=== PATIENT | male | born 1945 | race Caucasian/White ===

== ENCOUNTER 2020-11-16 16:37 | Emergency (ER) | payer MEDICARE ==
[~2020-11-16] VITALS: Ht 175.3 cm; Wt 81.6 kg
[2020-11-16 16:45] VITALS: BP 155/123
--- NOTE | 2020-11-16 16:45 | NUR ---
BIBA TO BED 8.
[2020-11-16] MEDS ORDERED: NACL 0.9% 1,000 ML IV ONE (17:00)
--- NOTE | 2020-11-16 17:15 | NUR ---
Labs drawn at bedside, gtube culture obtained, handed to petroleum refinery laborer
[2020-11-16 17:32] LABS: BASOPHILS # (AUTO) 0.1 K/uL (0.00-0.22); BASOPHILS % (AUTO) 0.7 % (0.0-2.0); EOSINOPHILS # (AUTO) 1.2 K/uL (0-0.4); EOSINOPHILS % (AUTO) 10.5 % (0.0-4.0); HEMATOCRIT 28.7 % (36-52); HEMOGLOBIN 9.2 g/dL (12.0-18.0); LYMPHOCYTES # (AUTO) 1.8 K/uL (2.0-11.5); LYMPHOCYTES % (AUTO) 16.6 % (20.5-51.1); MEAN CORPUSCULAR HEMOGLOBIN 26 pg (27-31); MEAN CORPUSCULAR HGB CONC 32 g/dL (33-37); MEAN CORPUSCULAR VOLUME 82.7 fL (80-94); MONOCYTES # (AUTO) 0.9 K/uL (0.8-1.0); MONOCYTES % (AUTO) 8.1 % (1.7-9.3); NEUTROPHILS # (AUTO) 7.1 K/uL (1.8-7.7); NEUTROPHILS % (AUTO) 64.1 % (42.2-75.2); PLATELET COUNT (AUTO) 481 K/uL (140-450); RED BLOOD CELL COUNT(AUTO) 3.48 MIL/uL (4.20-6.10); RED CELL DISTRIBUTION WIDTH 19.5 % (11.6-13.7); WHITE BLOOD COUNT (AUTO) 11.1 K/uL (4.8-10.8)
[2020-11-16 17:52] LABS: PROTHROMBIN TIME 9.8 secs (10.8-13.4)
[2020-11-16 17:53] LABS: ALBUMIN 2.6 g/dL (3.4-5.0); ANION GAP 13.3 (8-16); ASPARTATE AMINOTRANSFERASE 17 U/L (15-37); CHLORIDE 102 mmol/L (98-107); CREATININE 0.8 mg/dL (0.6-1.3); GLUCOSE 137 mg/dL (74-106); LIPASE 137 U/L (73-393); POTASSIUM 4.3 mmol/L (3.5-5.1); SODIUM SERUM 141 mmol/L (136-145); TOTAL BILIRUBIN 0.2 mg/dL (0.0-1.0); UREA NITROGEN, BLOOD 26 mg/dL (7-18)
--- NOTE | 2020-11-16 17:58 | NUR ---
74/M lauro from [facility]. Per staff patient was receiving his regular feeding this morning through his G-tube when they noticed the gtube site was red, swollen and hardened. Staff states they stopped the feeding and called the patients primary doctor who asked to have him sent to the ED to be evaluated. G-tube site appears red and swollen, discharge noted at site. Patient is nonambulatory, nonverbal at baseline. Patient placed in gown on bedside monitoring and evaluation advisor, vitals upon arrival 99.9 temp, blood pressure 155/123, heart rate 116, respiratory rate 24. Patient on t-bar, trach to vent, 100% pulse oximeter.
--- NOTE | 2020-11-16 17:58 | NUR ---
Xray at bedside
[2020-11-16 18:00] LABS: APPEARANCE,URINE CLEAR (CLEAR); BILIRUBIN,URINE NEGATIVE (NEGATIVE); BLOOD, URINE TRACE-I (NEGATIVE); COLOR,URINE YELLOW (YELLOW); LEUKOCYTE ESTERASE ,URINE 1+ (NEGATIVE); NITRITE, URINE NEGATIVE (NEGATIVE); UGLUCOSE NEGATIVE (NEGATIVE)
[2020-11-16] MEDS ORDERED: PIPERACILLIN/TAZOBACTAM 3.375 GM in DEXTROSE 5% 50 ML IV ONE (18:30)
--- NOTE | 2020-11-16 18:37 | NUR ---
Taken to CT via redd
[2020-11-16] MEDS ORDERED: PIPERACILLIN/TAZOBACTAM 3.375 GM VIAL IV ONE (18:39)
--- NOTE | 2020-11-16 18:56 | NUR ---
Liza swab collected and walked to lab
--- NOTE | 2020-11-16 19:09 | NUR ---
Pt report given to Teresa. Transfer of care at this time.
--- NOTE | 2020-11-16 19:10 | NUR ---
RECEIVED REPORT FROM DENISE DANIELLE FOR CONTINUITY OF CARE
[2020-11-16] MEDS ORDERED: LISI-487 PO (19:27)
[2020-11-16] MEDS ORDERED: FERR325E14 PO (19:27)
[2020-11-16] MEDS ORDERED: OMEP20EC11 PO (19:27)
[2020-11-16] MEDS ORDERED: INSU100S10 SC (19:27)
[2020-11-16] MEDS ORDERED: MVI,5VIA5 IV (19:27)
[2020-11-16] MEDS ORDERED: DOCU-299 PO (19:27)
[2020-11-16] MEDS ORDERED: METO50TA20 PO (19:27)
--- NOTE | 2020-11-16 20:12 | NUR ---
ERMD AT BEDSIDE
--- NOTE | 2020-11-16 20:24 | NUR ---
PT PLACED ON CA 30% 6L CURRENT SPO2 100% HR 103 WILL CONTINUE TO MONITOR
--- NOTE | 2020-11-16 22:00 | NUR ---
CALLED SON: WESLY MELARA ( EMERGENCY CONTACT OF PT); OBTAINED INFORMED CONSENT REGARDING TRANSFER TO ANOTHER FACILITY; PT'S SON ACKNOWLEGED AND SIGNED INFORMED CONSENT CONFIRMING NURSE/S: ALEX WALKER, RANDALL WALKER
--- NOTE | 2020-11-16 23:23 | NUR ---
PT Sx THK CRMY SECR WERE ASPIRATED. WILL CONTINUE TO MONITOR
--- NOTE | 2020-11-17 00:36 | NUR ---
[facility], TALKED TO FABIANA WALKER [phone]
--- NOTE | 2020-11-17 01:40 | NUR ---
PT RESTING ON CA W/ NO DISTRESS NOTED. WATER 1/2 FULL WILL CONTINUE TO MONITOR
--- NOTE | 2020-11-17 04:00 | NUR ---
CALLED [facility] ER REGARDING DELAY IN TRANSPORT
--- NOTE | 2020-11-17 04:23 | NUR ---
Patient appears to be resting comfortably in bed. Vital Signs within normal limits. Respirations even and unlabored.
--- NOTE | 2020-11-17 04:25 | NUR ---
RT ON BEDSIDE FOR TRACH CARE
--- NOTE | 2020-11-17 04:59 | NUR ---
TRACH CARE PERFORMED AND PT TOLERATED WELL. PT REMAINS ON CA 30% 6L
--- NOTE | 2020-11-17 05:03 | NUR ---
DRAINED GUALLPA CATHETER, OUTPUT WAS 900ML; URINE IS PINKISH TO LIGHT RED IN COLOR
[2020-11-17 05:42] VITALS: BP 127/87
--- NOTE | 2020-11-17 05:45 | NUR ---
Patient to be transferred to [facility]. Is being transferred due to INSURANCE REQUEST. Receiving facility has accepting physician and available space. ER physician has signed transfer form. Patient or responsible constitution party has agreed to transfer and signed form. Patient belongings inventoried and will be sent with patient. Copy of nursing notes, lab reports, EKG, Physicians Orders and X-rays to be sent with patient. Report called to FABIANA WALKER at receiving facility. [facility] ambulance service has been called for transfer. ETA is 1 HOUR.
--- NOTE | 2020-11-17 19:20 | NUR ---
LATE ENTRY- ZOSYN IVPB DISCONTINUED AT 1935
== END 2020-11-17 05:45 | disposition short-term general hospital (02) ==
LOC: MED 16:37
DX: L03.311 Cellulitis of abdominal wall (principal); Z20.822 Contact with and (suspected) exposure to COVID-19; K94.23 Gastrostomy malfunction; I12.9 Hypertensive chronic kidney disease with stage 1 through stage 4 chronic kidney disease, or unspecified chronic kidney disease; N18.9 Chronic kidney disease, unspecified; D64.9 Anemia, unspecified; Z86.73 Personal history of transient ischemic attack (TIA), and cerebral infarction without residual deficits; Z98.890 Other specified postprocedural states; Z79.899 Other long term (current) drug therapy
CPT/HCPCS: 36415; 51702; 71045; 74177; 80053; 81001; 83605; 83690; 85025; 85610; 85730; 87040; 87070; 87086; 87426; 93005; 96361; 96365; 99285; J2543; J7030; Q9967

== ENCOUNTER 2020-11-30 22:23 | Inpatient (IN) | payer MEDICARE, MEDICAID ==
[~2020-11-30] VITALS: Ht 172.7 cm; Wt 79.8 kg
[2020-11-30 22:23] VITALS: BP 143/90
[~2020-11-30 22:23] MED LIST: DOCU-299 GT; FERR325E14 GT; INSU100S10 SC; LISI-487 GT; METO50TA20 GT; MVI,5VIA5 GT; OMEP20EC11 GT
--- NOTE | 2020-11-30 22:24 | NUR ---
EARLENE GRIMES TAKEN TO BED #8
[2020-11-30] MEDS ORDERED: VANCOMYCIN 1,000 MG in DEXTROSE 5% 250 ML IV ONE (22:25)
[2020-11-30] MEDS ORDERED: CEFEPIME 2,000 MG in DEXTROSE 5% 100 ML IV ONE (22:25)
[2020-11-30] MEDS ORDERED: NACL 0.9% 1,000 ML IV ONE ×2 (22:25)
--- NOTE | 2020-11-30 22:25 | NUR ---
PT BIBA FROM [facility]; PER [facility] DX OF UTI AND PNA YESTERDAY; APPROX 30 MIN. AGO PT HAD ALOC, NOTED WITH TACHYCARDIA 170-180'S. PT NOTED WITH TRACH TO AIR. ARRIVED ON 12L WITH 02 98%. PT IS NONVERBAL, BASELINE IS ABLE TO TRACK WITH EYES. PT CURRENTLY RESPONSIVE TO PAIN ONLY BY WITHDRAWING. G TUBE NOTED WITH DRAINAGE TO SITE. PER [facility], GTUBE WAS DISPLACED AND REINSERTED PRIOR TO ARRIVAL. PLACEMENT CONFIRMED WITH 10CC AIR, AUSCULTATION POSITIVE. PER [facility] ACCUCHECK ON SCENE 175. NKA. PT IS WARM TO TOUCH WITH MOIST SKIN. PT CONNECTED TO MONITOR. RT AT BEDSIDE.
--- NOTE | 2020-11-30 22:26 | NUR ---
EKG PERFORMED AT BEDSIDE. EKG READS SUPRAVENTRICULAR TACHYCARDIA @ 169
[2020-11-30] MEDS ORDERED: ACETAMINOPHEN 650 MG/20.3 ML UDC GT ONE (22:30)
[2020-11-30] MEDS ORDERED: ADENOSINE 6 MG/2 ML VIAL IVP ONE (22:30)
--- NOTE | 2020-11-30 22:35 | NUR ---
D/C'D EXISTING INDWELLING GUALLPA CATH; NEW 16F GUALLPA PLACED, IMMEDIATE RETURN OF 10CC BLOODY, RED URINE. STERILE TECHNIQUE MAINTAINED.
--- NOTE | 2020-11-30 22:39 | NUR ---
Dr. Spence at bedside notified of SVT. Adenosine 6mg prepared with stopcock to IV. Dr. Spence, Marina RN, Black RN, Norman VENDOR QUALITY SUPERVISOR, Flavio VENDOR QUALITY SUPERVISOR, Leo EMT at bedside. Stanley cerda.
--- NOTE | 2020-11-30 22:40 | NUR ---
Adenosine 6mg pushed. pt did not conver into NSR. now sinus tach, per Dr. Spence declared as sinus tach and no more adenosine administration.
--- NOTE | 2020-11-30 22:40 | NUR ---
REPEAT EKG PERFORMED AT BEDSIDE. EKG READS SUPRAVENTRICULAR TACHYCARDIA @ 154
[2020-11-30 22:48] LABS: BASOPHILS % (AUTO) 0.1 % (0.0-2.0); EOSINOPHILS % (AUTO) 3.9 % (0.0-4.0); HEMATOCRIT 30.1 % (36-52); HEMOGLOBIN 9.5 g/dL (12.0-18.0); LYMPHOCYTES # (AUTO) 2.9 K/uL (2.0-11.5); LYMPHOCYTES % (AUTO) 11.7 % (20.5-51.1); MEAN CORPUSCULAR HEMOGLOBIN 27 pg (27-31); MEAN CORPUSCULAR HGB CONC 32 g/dL (33-37); MONOCYTES # (AUTO) 0.9 K/uL (0.8-1.0); MONOCYTES % (AUTO) 3.6 % (1.7-9.3); NEUTROPHILS % (AUTO) 80.7 % (42.2-75.2); PLATELET COUNT (AUTO) 432 K/uL (140-450); RED BLOOD CELL COUNT(AUTO) 3.58 MIL/uL (4.20-6.10); RED CELL DISTRIBUTION WIDTH 19.5 % (11.6-13.7); WHITE BLOOD COUNT (AUTO) 24.8 K/uL (4.8-10.8)
[2020-11-30] MEDS ORDERED: CEFEPIME 2,000 MG VIAL IV ONE (22:54)
--- NOTE | 2020-11-30 23:14 | NUR ---
RT AT BEDSIDE.
[2020-11-30 23:17] LABS: ALBUMIN 2.8 g/dL (3.4-5.0); ANION GAP 21.4 (8-16); ASPARTATE AMINOTRANSFERASE 21 U/L (15-37); CARBON DIOXIDE 24.4 mmol/L (21-32); CHLORIDE 99 mmol/L (98-107); CREATININE 1.3 mg/dL (0.6-1.3); GLUCOSE 172 mg/dL (74-106); POTASSIUM 4.8 mmol/L (3.5-5.1); SODIUM SERUM 140 mmol/L (136-145); TOTAL BILIRUBIN 0.3 mg/dL (0.0-1.0); UREA NITROGEN, BLOOD 38 mg/dL (7-18)
[2020-11-30 23:22] LABS: APPEARANCE,URINE CLOUDY (CLEAR); BILIRUBIN,URINE NEGATIVE (NEGATIVE); BLOOD, URINE 3+ (NEGATIVE); COLOR,URINE RED (YELLOW); LEUKOCYTE ESTERASE ,URINE 2+ (NEGATIVE); NITRITE, URINE NEGATIVE (NEGATIVE); PH,URINE 5.5 (5.0-9.0); UGLUCOSE NEGATIVE (NEGATIVE)
[2020-11-30 23:33] LABS: BARBITURATE, URINE NEGATIVE ng/ml (NEG <=200); BENZODIAZEPINE, URINE NEGATIVE ng/mL (NEG <=200); CANNABINOID, URINE NEGATIVE ng/mL (NEG <=50); COCAINE, URINE NEGATIVE ng/mL (NEG <=300); OPIATE, URINE POSITIVE ng/mL (NEG <=2000); PHENCYCLIDINE SCREEN,URINE NEGATIVE ng/mL (NEG <=25)
[2020-11-30 23:35] LABS: RBC,URINE TOO NUMEROUS TO COUN /HPF (0-5)
--- NOTE | 2020-11-30 23:40 | NUR ---
PT TAKEN TO CT SCAN
--- NOTE | 2020-11-30 23:53 | NUR ---
PT BACK FROM CT SCAN
[2020-12-01] VITALS (19 sets, daily range): BP systolic 79–134; BP diastolic 53–79
--- NOTE | 2020-12-01 00:03 | NUR ---
[address] KENNEDY ABG RESULTS, LOWERED VENTILATOR RATE TO 20 BPM, AND FIO2 TO 50%, HELPED TRANSPORT PT TO CT, WITH RN, RETURNED TO BED 8 IN ER, PT IS TOLERATING VENT SETTINGS WELL, WILL CONTINUE TO MONITOR
[2020-12-01] MEDS ORDERED: VANCOMYCIN 1,000 MG VIAL ONE (00:13)
--- NOTE | 2020-12-01 00:30 | NUR ---
45 CC DARK, YELLOW URINE OUTPUT NOTED IN GUALLPA BAG.
[2020-12-01] MEDS ORDERED: LACT100C5 GT (01:45)
[2020-12-01] MEDS ORDERED: ZINC50TA76 GT (01:45)
[2020-12-01] MEDS ORDERED: ASCO-516 GT (01:45)
[2020-12-01] MEDS ORDERED: MEDI237S4 GT (01:45)
--- NOTE | 2020-12-01 01:57 | NUR ---
Patient will be admitted to care of MD THEODROE. Admited to ICU. Will go to room ICU8. Belongings list completed. Report to DENISE KIMBALL.
--- NOTE | 2020-12-01 02:10 | NUR ---
ADDITONAL 100 CC DARK, YELLOW URINE NOTED IN GUALLPA BAG. PT HAD BM, CLEANED AND CHANGED SHEETS, REPOSITIONED FOR COMFORT.
--- NOTE | 2020-12-01 02:12 | NUR ---
PT TAKEN TO ICU BED 8 VIA GURPRINCESS.
--- NOTE | 2020-12-01 02:20 | NUR ---
RECIEVED PT ADMISSION FROM ER NURSE, A&0X0, SR ON MONITOR, PERIPHERAL PULSES PALPABLE TO TOUCH, TRACH TO VENT ACVC FIO2 35% TV 500 RATE 20 PEEP 5, GTUBE IN PLACE AND CLAMPED, FC IN PLACE DRAINING VIA GRAVITY W/ DARK EJ URINE, AFEBRILE, SKIN WARM DRY AND NON INTACT, PRESSURE WOUND TO R ABD AND SACRAL COCCYX, R SIDED WEAKNESS, RFA 20 G PIV INFUSING NS TKO, NATHAN 18 G PIV SALINE LOCKED, PT SHOWING NO SIGNS OF ACUTE DISTRESS, SAFETY MEASURES IN PLACE, WILL CONTINUE WITH CURRENT POC
--- NOTE | 2020-12-01 02:20 | NUR ---
HELPED ER STAFF TRANSFER PT FROM ER BED 8 TO ICU BED 8, PT REMAINS STABLE ON MECHANICAL VENTILATION, WILL CONTINUE TO MONITOR
[2020-12-01] MEDS ORDERED: PIPERACILLIN/TAZOBACTAM 3.375 GM VIAL IV ONE (03:22)
--- NOTE | 2020-12-01 03:35 | NUR ---
REPOSITIONED PT, MORNING CARE GIVEN, CHANGED LINEN, VAP ORAL CARE AND SUCTIONING, PT SHOWING NO SIGNS OF ACUTE DISTRESS
[2020-12-01] MEDS: PIPERACILLIN/TAZOBACTAM 3.375 GM in DEXTROSE 5% 50 ML IV SCH ×3 (04:03→22:05)
--- NOTE | 2020-12-01 04:22 | NUR ---
ADMINISTERED 0500H MEDICATION PER MD ORDERS
[2020-12-01 06:00] LABS: ALBUMIN 2.4 g/dL (3.4-5.0); ANION GAP 10.6 (8-16); ASPARTATE AMINOTRANSFERASE 20 U/L (15-37); CARBON DIOXIDE 28.4 mmol/L (21-32); CHLORIDE 104 mmol/L (98-107); CREATININE 1.1 mg/dL (0.6-1.3); GLUCOSE 165 mg/dL (74-106); PHOSPHORUS 3.4 mg/dL (2.5-4.9); SODIUM SERUM 139 mmol/L (136-145); TOTAL BILIRUBIN 0.2 mg/dL (0.0-1.0); UREA NITROGEN, BLOOD 39 mg/dL (7-18)
[2020-12-01 06:04] LABS: BASOPHILS % (AUTO) 0.1 % (0.0-2.0); EOSINOPHILS % (AUTO) 0.2 % (0.0-4.0); HEMATOCRIT 25.7 % (36-52); LYMPHOCYTES # (AUTO) 1.4 K/uL (2.0-11.5); LYMPHOCYTES % (AUTO) 6.9 % (20.5-51.1); MEAN CORPUSCULAR HEMOGLOBIN 27 pg (27-31); MEAN CORPUSCULAR HGB CONC 32 g/dL (33-37); MEAN CORPUSCULAR VOLUME 85.3 fL (80-94); MONOCYTES # (AUTO) 1.8 K/uL (0.8-1.0); MONOCYTES % (AUTO) 8.8 % (1.7-9.3); NEUTROPHILS # (AUTO) 16.7 K/uL (1.8-7.7); PLATELET COUNT (AUTO) 332 K/uL (140-450); RED BLOOD CELL COUNT(AUTO) 3.01 MIL/uL (4.20-6.10); RED CELL DISTRIBUTION WIDTH 19.5 % (11.6-13.7); WHITE BLOOD COUNT (AUTO) 19.9 K/uL (4.8-10.8)
[2020-12-01 06:31] LABS: HEMOGLOBIN 8.1 g/dL (12.0-18.0)
--- NOTE | 2020-12-01 06:41 | NUR ---
CONTACTED [facility] IN REGARDS TO CRITICAL LAB REPORTING, NO ANSWER, LEFT MESSAGE AND AWAITING CALL BACK
--- NOTE | 2020-12-01 06:53 | NUR ---
CONTACTED [facility] AGAIN IN REGARDS TO CRITICAL LAB REPORTING, NO ANSWER, LEFT MESSAGE, STILL AWAITING CALL BACK
--- NOTE | 2020-12-01 07:15 | NUR ---
DR JAIMES AT BEDSIDE EXAMINING PT
--- NOTE | 2020-12-01 07:20 | NUR ---
RCV'D PT ON MECHANICAL VENTILATOR WITH PORTEX [address] TR[address] TRACH IS IN PLACE AND SECURED WITH TRACH TIE. VENT CONNECTED TO RED OUTLET, ALARMS AUDIBLA, AMBU BAG AT BEDSIDE. NO SOB OR DISTRESS NOTED. CLEAR BREATH SOUNDS. WILL CONTINUE TO MONITOR PATIENT.
--- NOTE | 2020-12-01 07:20 | NUR ---
REPORT RECEIVED FROM PM SHIFT RN FOR CONTINUITY OF CARE. PT A&OX1. OPENS EYES, TRACKING NOTED. TRACH TO VENT, ON AC/VC MODE FIO2 35% TV 500, RATE 20, PEEP 5. O2 SATURATION 100%. LUNG SOUNDS CLEAR. SINUS RHYTHM ON MONITOR. IV SITE LT UPPER ARM 18G, INTACT, PATENT, GOOD BLOOD RETURN, SALINE LOCKED. RT FOREARM 20G, INTACT, PATENT, GOOD BLOOD RETURN, INFUSING NS 100ML/HR. GTUBE IN PLACE, CLAMPED. GUALLPA CATHETER IN PLACE. SKIN WARM AND DRY, NON INTACT, SEE WOUND ASSESSMENT. HOB 30 DEGREES. BED LOCKED IN LOWEST POSITION. SAFETY PRECAUTIONS IN PLACE. WILL CONTINUE TO MONITOR.
--- NOTE | 2020-12-01 07:20 | NUR ---
ENDORSED TO DAY SHIFT RN FOR CONTINUITY OF CARE
[2020-12-01] MEDS ORDERED: INSULIN LISPRO SLIDING SCALE 100 UNITS/ML VIAL SUBQ PRN (07:25)
[2020-12-01] MEDS ORDERED: ONDANSETRON 4 MG/2 ML VIAL IVP PRN (07:25)
[2020-12-01] MEDS ORDERED: ACETAMINOPHEN 325 MG TAB PO PRN (07:25)
[2020-12-01] MEDS ORDERED: HYDROcodone/APAP 5/325 MG 1 TAB TAB PO PRN (07:25)
[2020-12-01] MEDS ORDERED: DEXTROSE 50% 50 ML SYR IVP PRN (07:25)
[2020-12-01] MEDS ORDERED: LORazepam 2 MG/ML VIAL IM/IVP PRN (07:25)
[2020-12-01] MEDS ORDERED: MORPHINE SULFATE 2 MG/ML SYR IVP PRN (07:25)
[2020-12-01] MEDS ORDERED: ZOLPIDEM 5 MG TAB PO PRN (07:25)
[2020-12-01] MEDS ORDERED: DOCUSATE SODIUM 100 MG GELCAP PO PRN (07:25)
[2020-12-01] MEDS: BLOOD GLUCOSE MONITORING 1 DEV DEV FS SCH ×4 (07:36→21:58)
--- NOTE | 2020-12-01 08:00 | NUR ---
ORAL CARE PROVIDED. PT REPOSITIONED. WILL CONTINUE TO MONITOR.
--- NOTE | 2020-12-01 08:46 | NUR ---
PATIENT HAS BEEN SCREENED AND CATEGORIZED HIGH NUTRITION RISK. PATIENT WILL BE SEEN WITHIN 1-2 DAYS OF ADMISSION. 12/01/20-12/02/[address]
[2020-12-01] MEDS ORDERED: THERAHONEY GEL 42.5 GM TP SCH (09:00)
--- NOTE | 2020-12-01 10:26 | NUR ---
DC PLANNING: FAXED THE ORDER FOR STABLE FOR TRANSFER TO [facility] AT [phone] CM TO FOLLOW Addendum: 12/01/20 at 1125 by Ebonie Wills RN DC PLANNING; CALLED [facility] SPOKE WITH FANTA CASE IDENTIFICATION OFFICER UPDATED PT'S CLINICAL AND PROVIDE DR GARCIA'S NUMBER FOR [facility]. PER FANTA SHE RECEIVED ALL THE CLINICALS AND BLANCA IS THE CM FOR THIS PATIENT AND WILL CALL BACK IF SHE HAS ANY PATIENT. CALLED PT'S SON WESLY [phone] NOTIFIED HIM THAT PT MIGHT BE TRANSFERRED TO [facility] PER WESLY DAWKINS [facility] ,NOTIFIED OCTOBER AT [facility]. CM TO FOLLOW
--- NOTE | 2020-12-01 10:45 | NUR ---
DR NEWTON AT BEDSIDE EXAMINING PT
[2020-12-01 11:03] LABS: PROTHROMBIN TIME 10.2 secs (10.8-13.4)
[2020-12-01 11:11] LABS: CHOL/HDL RATIO 3.5 (1-4.5); FREE T4 (FREE THYROXINE) 1.1 ng/dL (0.76-1.46); PHOSPHORUS 3.4 mg/dL (2.5-4.9); THYROID STIMULATING HORMONE 3.61 uIU/mL (0.34-3.74)
[2020-12-01] MEDS ORDERED: CRUSHER, PILL MC ONE (11:14)
--- NOTE | 2020-12-01 11:49 | NUR ---
PT HAD 1 BOWEL MOVEMENT, CLEANED, REPOSITIONED. SAFETY PRECAUTIONS IN PLACE. WILL CONTINUE TO MONITOR.
--- NOTE | 2020-12-01 13:10 | NUR ---
REPORT GIVEN TO BLANCA WALKERSMASH FIXER FOR [facility] TRANSFER. STATED WILL WAIT FOR REPEAT TROPONIN BEFORE ACCEPTANCE. [phone]
--- NOTE | 2020-12-01 13:11 | NUR ---
WOUND CARE EVALUATION NOTE: SKIN ASSESSMENT DONE WITH PRIMARY RN TO THIS THIS 75-YEAR-OLD MALE ADMITTED FROM A SNF TO [facility] FOR PNEUMONIA AND UTI. PMH OF CHRONIC TRACH TO VENT, HTN, DM. PT. SKIN IS WARM AND POC DISCUSSED WITH PRIMARY RN INTEGUMENTARY -TRACH AND GT SITES MASSIEL STOMA SKIN DRY AND CLEAN -LATERAL SIDE AND ABDOMEN WALL 2 OPEN HEALING BLISTERS, SUPERFICIAL DEPTH, WOUND BEDS ARE MOIST AND CLEAN. -SACRAL STAGE 4 PRESSURE INJURY,3X3X1 CM, UNDERMINING BETWEEN 9 OCLOCK DIRECTION WITH 0.5CM, TUNNEL WOUND TO 6 OCLOCK DIRECTION WOUND BED 100% GRANULATING TISSUE, MOIST, NO ODOR, MASSIEL-WOUND SKIN PALE HEALED SCAR RECOMMENDATIONS -CLEANSE ABDOMEN OPEN BLISTERS WITH WOUND CARE SOLUTION, PAT DRY, APPLY FOAM DRESSING AND CHANGE 7 DAYS AND PRN IF SOILING -CLEANSE SACRALCOCCYX WOUND WITH NS. PAT DRY, PACK WITH THERAHONEY GEL AND COVER WITH ISLAND DRESSING QD AND PRN IF SOILING -APPLY SKIN PREP.TO BILATERAL HEEL BID AND OUTSOLE SCHEDULER -TURN AND REPOSITION PATIENT Q 2H -HEEL PROTECTORS TO BILATERAL HEELS AT ALL TIME -TURN AND REPOSITION PATIENT Q 2H -ASSESS AND MONITOR SKIN CONDITION DURING POSITION CHANGE -OFFLOAD BILATERAL HEELS BY PLACING PILLOWS UNDER CALVES AT ALL TIMES, UNLESS OTHERWISE CONTRAINDICATED -PRESSURE REDISTRIBUTION SURFACE THERAPY -KEEP SKIN CLEAN AND DRY AT ALL TIMES. PLEASE CONTACT WOUND CARE NURSE FOR ANY QUESTION AND CHANGE OF WOUND CONDITION.
--- NOTE | 2020-12-01 13:20 | NUR ---
PATIENT AWAKE AND AGITATED TRIED TO PULL OUT HIS TRACK , ATIVAN IVP GIVEN ORDERED.
--- NOTE | 2020-12-01 13:34 | NUR ---
PATIENT FALL TO SLEEP VITAL SIGN WITH IN NORMAL LIMIT.
--- NOTE | 2020-12-01 15:23 | NUR ---
12/01/20 RD INITIAL ASSESSMENT COMPLETED PLEASE REFER TO NUTRITION ASSESSMENT UNDER CARE ACTIVITY FOR ESTIMATED NUTRITIONAL NEEDS. 1. RECOMMEND VITAL AF 1.2 @ 70 ML/HR. START AT 20 ML/HR AND INCREASE BY 20 ML/HR Q4H -PROVIDES 2016 KCAL AND 126 GM OF PROTEIN 2. RECOMMEND FREE WATER FLUSH OF 110 ML Q4H 3. RECOMMEND ROSE BID 4. RD TO FOLLOW-UP 2-3 DAYS, HIGH RISK TY BENNETT RD
--- NOTE | 2020-12-01 16:00 | NUR ---
RECEIVED CALL FROM BEE CHANDRA FIELD REPORTER. [phone]. UPDATED ON PT STATUS. PT TO BE TRANSFERRED [facility]. NO ETA GIVEN FOR PICKUP.
--- NOTE | 2020-12-01 17:15 | NUR ---
PT TRANSFERRED TO TELE 108 B VIA [facility]. ACCOMPANIED BY ROLANDO LAMBERTCATAPULT AND ARRESTING GEAR OFFICER, LISA WALKER AND JENNIFER VIVEROS
--- NOTE | 2020-12-01 17:26 | NUR ---
PT TRANSFERRED FROM ICU TO TELE WITH NO INCIDENT. VENT CONNECTED TO RED OUTLET. ALARMS AUDIBLE. AMBU BAG AT BEDSIDE. NO SOB OR DISTRESS NOTED. WILL CONTINUE TO MONITOR.
[2020-12-01] MEDS ORDERED: METO25TA PO (17:54)
[2020-12-01] MEDS ORDERED: ZOS3.375PM IV (17:54)
--- NOTE | 2020-12-01 19:07 | NUR ---
RECEIVED CALL FROM OCTOBER WATER PROOFER. PT WILL BE GOING TO [facility] [id number] Shira SU. REPORT TO BE GIVEN TO [phone]
--- NOTE | 2020-12-01 19:08 | NUR ---
OCTOBER WOOD BOATBUILDER APPRENTICE. [phone]. ETA PICKUP TIME IS 2029. CALL BACK FELLER BUNCHER OPERATOR TO UPDATE LATEST VITALS.
--- NOTE | 2020-12-01 19:24 | NUR ---
REPORT GIVEN TO JAMEE WALKER FOR CONTINUITY OF CARE
--- NOTE | 2020-12-01 20:00 | NUR ---
PT IN BED AOX1 , HE IS RESPONSIVE TO LIGHT PAIN HE IS A TRACH TO VENT FIO2 24% TV 500 PEEP 5. PT HAS A G TUBE INTACT NO FEEDING PT IS NPO. HE ALSO HAS A GUALLPA CATHETER IN PLACE AND DRAINING YELLOW URINE. HE HAS 2 IV SITES R F/A AND LEFT UPPER ARM 18G WHICH IS SALINE LOCKED R F/A 20 GUAGE IS RUNNING NORMAL SALINE AT 100 MLS/HR. ALL ORDERED PRECAUTIONS IN PLACE.
[2020-12-01] MEDS ORDERED: METOPROLOL 25 MG TAB PO SCH (21:00)
--- NOTE | 2020-12-01 21:00 | NUR ---
PT GIVEN ROUTINE MED VIA GT, ALSO ZOSYN HUNG AND RUNNING ORDERED. PT UNABLE TO COMPREHEND TEACHING REGARDING MEDICATION. ALL ORDERED PRECAUTIONS IN PLACE.
--- NOTE | 2020-12-01 22:02 | NUR ---
CALLED BEE DAWKINS TO FOLLOW UP ABOUT THE PT TRANSPORTATION ( [facility]) , ETA IS SUPPOSED TO BE 2030 AND NO ONE AUTO BUMPER MECHANIC THE PATIENT YET. ACCORDING TO MY REPORT FROM DAY SYSTEM ADMINISTRATION MANAGERDENISE DAWKINS WILL BE PROVIDING THE TRANSPORTATION FOR THE PATIENT. CALLED AND SPOKE TO THE RECEIVING DENISE MATOS AND MADE AWARE THAT THE PATIENT HASN'T BEEN AUTO BUMPER MECHANIC YET. DENISE MATOS STATED THAT SHE IS ALSO NOT AWARE THAT THEY ARE PROVIDING THE TRANSPORTATION AND STATED THAT SHE WILL CALL HER BED COORDINATOR.
--- NOTE | 2020-12-01 23:00 | NUR ---
[facility] TRANSPORT HERE. REPORT GIVEN TO SHAWNA MILLS AT [facility]. PT LEFT IN STABLE CONDITION.
== END 2020-12-01 23:25 | disposition short-term general hospital (02) | DRG 871 ==
LOC: MED 22:23 → MIC 12-01 01:05 → MTU 12-01 17:30
PROVIDERS: ADMIT Family Medicine; ATTEND Family Medicine
PROC: 5A1935Z Respiratory Ventilation, Less than 24 Consecutive Hours (ICD-10-PCS; principal; 2020-12-01)
DX: A41.9 Sepsis, unspecified organism (principal); G93.41 Metabolic encephalopathy; I21.4 Non-ST elevation (NSTEMI) myocardial infarction; E43 Unspecified severe protein-calorie malnutrition; J18.9 Pneumonia, unspecified organism; N39.0 Urinary tract infection, site not specified; I47.1 Supraventricular tachycardia; R65.20 Severe sepsis without septic shock; Z20.822 Contact with and (suspected) exposure to COVID-19; I12.9 Hypertensive chronic kidney disease with stage 1 through stage 4 chronic kidney disease, or unspecified chronic kidney disease; N18.9 Chronic kidney disease, unspecified; E11.22 Type 2 diabetes mellitus with diabetic chronic kidney disease; R13.12 Dysphagia, oropharyngeal phase; D63.8 Anemia in other chronic diseases classified elsewhere; Z93.1 Gastrostomy status; Z68.26 Body mass index [BMI] 26.0-26.9, adult; Z79.4 Long term (current) use of insulin; Z79.899 Other long term (current) drug therapy; Z86.73 Personal history of transient ischemic attack (TIA), and cerebral infarction without residual deficits; Z93.0 Tracheostomy status
CPT/HCPCS: 36415; 70450; 71045; 80053; 80305; 81001; 82150; 83036; 83605; 83690; 83735; 84100; 84439; 84443; 84484; 85025; 85610; 85730; 87040; 87070; 87081; 87086; 87205; 87804; 93005; 94003; 96365; 96366; 96367; 96375; 99285; J0153; J0692; J1815; J2060; J2543; J3370; J7060

== ENCOUNTER 2021-11-16 10:41 | Inpatient (IN) | payer OTHER, MEDICAID ==
[~2021-11-16] VITALS: Ht 180.3 cm; Wt 79.4 kg
[~2021-11-16 10:41] MED LIST changes: +ASCO-516 GT; +LACT100C5 GT; +MEDI237S4 GT; +METO25TA PO; +ZINC50TA76 GT; +ZOS3.375PM IV
[2021-11-16 10:47] VITALS: BP 133/85
--- NOTE | 2021-11-16 11:03 | NUR ---
ASSUMED CARE OF PT AT THIS TIME, ROOMED TO BED 1. BIB EMS FOR FEVER FROM SNF. TEMP WAS 102, PT WAS TREATED AT SNF WITH TYLENOL. SKIN IS HOT TO TOUCH BUT AFEBRILE AT THIS TIME. COOLING MEASURES IMPLEMENTED. PT HAS TRACH, NON VENT DEPENDENT. PT IS BEDBOUND, ALERT BUT NON VERBAL. PER REPORT PT APPEARS MORE ALTERED THAN USUAL. PLACED ON RECREATION COORDINATOR, SINUS TACH AT 126, VS OTHERWISE STABLE. AWAITING MD WILDE. WILL CONT TO MONITOR
[2021-11-16] MEDS ORDERED: NACL 0.9% 1,000 ML IV ONE ×2 (11:15→13:15)
[2021-11-16 11:45] LABS: BASOPHILS % (AUTO) 0.1 % (0.0-2.0); EOSINOPHILS # (AUTO) 0.1 K/uL (0-0.4); EOSINOPHILS % (AUTO) 0.3 % (0.0-4.0); HEMATOCRIT 38.5 % (36-52); HEMOGLOBIN 12.2 g/dL (12.0-18.0); LYMPHOCYTES # (AUTO) 0.8 K/uL (2.0-11.5); LYMPHOCYTES % (AUTO) 3.5 % (20.5-51.1); MEAN CORPUSCULAR HEMOGLOBIN 27 pg (27-31); MEAN CORPUSCULAR HGB CONC 32 g/dL (33-37); MEAN CORPUSCULAR VOLUME 84.5 fL (80-94); MONOCYTES # (AUTO) 1.7 K/uL (0.8-1.0); MONOCYTES % (AUTO) 7.3 % (1.7-9.3); NEUTROPHILS # (AUTO) 20.8 K/uL (1.8-7.7); NEUTROPHILS % (AUTO) 88.8 % (42.2-75.2); PLATELET COUNT (AUTO) 277 K/uL (140-450); RED BLOOD CELL COUNT(AUTO) 4.56 MIL/uL (4.20-6.10); RED CELL DISTRIBUTION WIDTH 16.2 % (11.6-13.7); WHITE BLOOD COUNT (AUTO) 23.5 K/uL (4.8-10.8)
[2021-11-16] MEDS ORDERED: VANCOMYCIN 1,000 MG in DEXTROSE 5% 250 ML IV ONE (12:15)
[2021-11-16 12:40] LABS: ALBUMIN 3.4 g/dL (3.4-5.0); ANION GAP 12.6 (8-16); ASPARTATE AMINOTRANSFERASE 23 U/L (15-37); CARBON DIOXIDE 27.1 mmol/L (21-32); CHLORIDE 100 mmol/L (98-107); CREATININE 1.1 mg/dL (0.6-1.3); GLUCOSE 177 mg/dL (74-106); POTASSIUM 3.7 mmol/L (3.5-5.1); SODIUM SERUM 136 mmol/L (136-145); TOTAL BILIRUBIN 0.4 mg/dL (0.0-1.0); UREA NITROGEN, BLOOD 23 mg/dL (7-18)
[2021-11-16] MEDS ORDERED: cefTRIAXone 1,000 MG VIAL ONE (12:47)
--- NOTE | 2021-11-16 12:54 | NUR ---
CORRECTION...ROCEPHIN WAS STARTED AT 100ML/HR TO INFUSE OVER 30 MINS, NOT 200ML/HR
--- NOTE | 2021-11-16 13:08 | NUR ---
PT RESTING COMFORTABLY. NO DISTRESS NOTED. REPOSITIONED FOR COMFORT. RESP EVEN AND UNLABORED. AFEBRILE. ABX INFUSING. WILL CONT TO MONITOR
[2021-11-16] MEDS ORDERED: LORazepam 2 MG/ML VIAL IM/IVP PRN (13:25)
[2021-11-16] MEDS ORDERED: ZOLPIDEM 5 MG TAB PO PRN (13:25)
[2021-11-16] MEDS ORDERED: DOCUSATE SODIUM 100 MG GELCAP PO PRN (13:25)
[2021-11-16] MEDS ORDERED: ONDANSETRON 4 MG/2 ML VIAL IM/IVP PRN (13:25)
[2021-11-16] MEDS ORDERED: MORPHINE SULFATE 2 MG/ML SYR IVP PRN (13:25)
[2021-11-16] MEDS ORDERED: ACETAMINOPHEN 325 MG TAB PO PRN (13:25)
[2021-11-16] MEDS ORDERED: HYDROcodone/APAP 5/325 MG 1 TAB TAB PO PRN (13:25)
[2021-11-16 13:27] LABS: APPEARANCE,URINE CLEAR (CLEAR); BILIRUBIN,URINE NEGATIVE (NEGATIVE); BLOOD, URINE 1+ (NEGATIVE); COLOR,URINE YELLOW (YELLOW); LEUKOCYTE ESTERASE ,URINE 3+ (NEGATIVE); NITRITE, URINE POSITIVE (NEGATIVE); PH,URINE 7.5 (5.0-9.0); UGLUCOSE NEGATIVE (NEGATIVE)
[2021-11-16] MEDS ORDERED: VANCOMYCIN PER PHARMACY MC SCH (13:35)
[2021-11-16] MEDS ORDERED: VANCOMYCIN 1,000 MG VIAL ONE (13:40)
[2021-11-16 14:10] LABS: PROTHROMBIN TIME 10.3 secs (10.8-13.4)
[2021-11-16] MEDS ORDERED: ACETYLCYSTEINE 10% (100 MG/ML) 100 MG/ML VIAL INH SCH (14:10)
[2021-11-16 14:20] LABS: MAGNESIUM 1.9 mg/dL (1.8-2.4); PHOSPHORUS 2.9 mg/dL (2.5-4.9)
[2021-11-16] MEDS ORDERED: INSULIN LISPRO SLIDING SCALE 100 UNITS/ML VIAL SUBQ PRN (14:30)
[2021-11-16] MEDS: ACETYLCYSTEINE 10% (100 MG/ML) 100 MG/ML VIAL INH SCH ×3 (14:40→23:00)
[2021-11-16] MEDS: ALBUTEROL SULFATE/IPRATROPIU 3 ML SOL IH SCH ×3 (14:40→23:00)
[2021-11-16] MEDS ORDERED: ALBUTEROL 0.083% 2.5 MG/3 ML NEBU INH SCH (15:00)
--- NOTE | 2021-11-16 15:03 | NUR ---
PT HAS READY BED. PT IS FEBRILE AT THIS TIME, 103.2 ORALLY. ADMITTING ORDERS ONLY HAVE PO MEDS. PT IS UNABLE TO SWALLOW, HAS GTUBE. CALL OUT FOR ADMITTING MD FOR [place] TYLENOL.
[2021-11-16] MEDS ORDERED: ACETAMINOPHEN 650 MG SUPP RC STA (15:06)
[2021-11-16] MEDS ORDERED: ACETAMINOPHEN 650 MG SUPP RC ONE (15:09)
[2021-11-16 15:10] LABS: RBC,URINE NONE SEEN /HPF (0-5); WBC,URINE 0-5 /HPF (0-5)
[2021-11-16 15:24] VITALS: BP 145/97
--- NOTE | 2021-11-16 15:26 | NUR ---
PT WAS MEDICATED FOR FEVER PRIOR TO TRANSFER TO FLOOR. BEDSIDE REPORT GIVEN, PT WENT TO ROOM 123B. PT REMAINS SINUS TACH AT 140S RELATED TO FEVER, COLLING MEASURES WERE IMPLE,EMTED. VS OTHERWISE STABLE. PT TRANSFERRED TO FLOOR ON MONITOR AND O2 WITH RN AND TECH. PT STABLE FOR TRANSFER TO FLOOR.
[2021-11-16] MEDS ORDERED: DEXTROSE 50% 50 ML SYR IVP PRN (15:35)
--- NOTE | 2021-11-16 16:00 | NUR ---
RECEIVED PT FROM ER ON 4L T-PIECE. SATURATION WAS 98/99%. LOWERED TO 3L WITH BUBBLE HUMIDIFIER. PT SATURATION IS 95/96%. COARSE BILATERALLY, TEMP 102, HEART RATE WAS 150. THICK SECRETIONS WHEN SUCTIONED, BUT IMPROVED AFTER DUO/MUCOMYST TREATMENT.
[2021-11-16] MEDS: BLOOD GLUCOSE MONITORING 1 DEV DEV FS SCH ×2 (16:21→21:23)
[2021-11-16] MEDS: DEXT 5% / NACL 0.45% 1,000 ML IV SCH (16:21)
[2021-11-16] MEDS: INSULIN LISPRO SLIDING SCALE 100 UNITS/ML VIAL SUBQ PRN ×2 (16:31→21:37)
--- NOTE | 2021-11-16 19:02 | NUR ---
AT ROUGHLY 1524 PT WAS BROUGHT IN BY LARRY FROM THE ER, PT TRACH TO TBAR ON 2L. PT CONNECTED TO THE TELE AND OXYGEN. COOLING MEASURES IMPLEMENTED, PT HAS BEEN CLEANED AND REPOSITONED. SKIN ITNACT WITH SACRAL REDNESS. NO EDEMA NOTED. PT APPEARS DIAPHORETIC. LUNG SOUNDS CRACKLES AND DIMINISHED. NEW GUALLPA WAS PLACED AT 1600 DUE TO GUALLPA NOT BEING PLACED IN ER. FLUIDS STARTED AT 100 CC D5 1/2 NS. BLOOD GLUCOSE 218, 4 UNITS ADMINISTERED. CALLED [facility] IN REGARD TO PT HISTORY AND ADMISSION, CALLED TO NOTIFY EMERGENCY CONTACT, WESLY, NO ANSWER, VOICEMAIL LEFT. ALL SAFETY MEASURES IN PLACE, CALL LIGHT WITHIN REACH. WILL ENDORSE TO POPULATION GENETICIST
[2021-11-16 20:00] VITALS: BP 115/67
[2021-11-16] MEDS: METOPROLOL 25 MG TAB GT SCH (21:32)
[2021-11-17] VITALS: BP 98/62
[2021-11-17] MEDS: DEXT 5% / NACL 0.45% 1,000 ML IV SCH ×3 (01:55→21:55)
[2021-11-17] MEDS: ALBUTEROL SULFATE/IPRATROPIU 3 ML SOL IH SCH ×7 (02:27→22:57)
[2021-11-17] MEDS: ACETYLCYSTEINE 10% (100 MG/ML) 100 MG/ML VIAL INH SCH ×6 (02:28→22:57)
[2021-11-17 04:00] VITALS: BP 98/55
[2021-11-17 05:59] LABS: ALBUMIN 2.6 g/dL (3.4-5.0); ANION GAP 9.9 (8-16); ASPARTATE AMINOTRANSFERASE 14 U/L (15-37); CARBON DIOXIDE 26.9 mmol/L (21-32); CHLORIDE 104 mmol/L (98-107); CREATININE 1.1 mg/dL (0.6-1.3); GLUCOSE 210 mg/dL (74-106); MAGNESIUM 1.9 mg/dL (1.8-2.4); POTASSIUM 3.8 mmol/L (3.5-5.1); SODIUM SERUM 137 mmol/L (136-145); TOTAL BILIRUBIN 0.4 mg/dL (0.0-1.0); UREA NITROGEN, BLOOD 19 mg/dL (7-18)
[2021-11-17 06:03] LABS: BASOPHILS % (AUTO) 0.1 % (0.0-2.0); EOSINOPHILS # (AUTO) 0.1 K/uL (0-0.4); EOSINOPHILS % (AUTO) 0.6 % (0.0-4.0); HEMATOCRIT 33.6 % (36-52); HEMOGLOBIN 10.7 g/dL (12.0-18.0); LYMPHOCYTES # (AUTO) 1.3 K/uL (2.0-11.5); LYMPHOCYTES % (AUTO) 5.8 % (20.5-51.1); MEAN CORPUSCULAR HEMOGLOBIN 27 pg (27-31); MEAN CORPUSCULAR HGB CONC 32 g/dL (33-37); MEAN CORPUSCULAR VOLUME 84.5 fL (80-94); MONOCYTES # (AUTO) 1.8 K/uL (0.8-1.0); MONOCYTES % (AUTO) 7.9 % (1.7-9.3); NEUTROPHILS # (AUTO) 19.4 K/uL (1.8-7.7); NEUTROPHILS % (AUTO) 85.6 % (42.2-75.2); PLATELET COUNT (AUTO) 231 K/uL (140-450); RED BLOOD CELL COUNT(AUTO) 3.98 MIL/uL (4.20-6.10); RED CELL DISTRIBUTION WIDTH 16.6 % (11.6-13.7); WHITE BLOOD COUNT (AUTO) 22.7 K/uL (4.8-10.8)
[2021-11-17 08:00] VITALS: BP 130/59
--- NOTE | 2021-11-17 08:00 | NUR ---
RECEIVE ENDORSEMENT FROM PM SHIFT NURSE WHILE PATIENT REST IN BED, PIV AT R.WRIST 18G W/ D5 1/2NS 100ML/HR INFUSING. PATIENT COME FROM SNF FOR HIGH FEVER. G-TUB IN PLACE W/ NO FEEDING AT THIS TIME. WILL CONTINUE TO MONITOR
[2021-11-17] MEDS: BLOOD GLUCOSE MONITORING 1 DEV DEV FS SCH ×4 (08:02→21:27)
[2021-11-17] MEDS: INSULIN LISPRO SLIDING SCALE 100 UNITS/ML VIAL SUBQ PRN ×4 (08:07→21:31)
[2021-11-17] MEDS ORDERED: lisinopriL 20 MG TAB GT SCH (09:00)
--- NOTE | 2021-11-17 09:23 | NUR ---
PATIENT HAS BEEN SCREENED AND CATEGORIZED HIGH NUTRITION RISK. PATIENT WILL BE SEEN WITHIN 1-2 DAYS OF ADMISSION. CONSULT AND REFERRAL RECEIVED FOR MALNUTRITION AND TUBE FEEDING [address]
--- NOTE | 2021-11-17 10:13 | NUR ---
CALLED BY NURSING STAFF, STATING PT NEEDED SUCTIONING, AFTER EVALUATION, SUCTIONED PT, AND ADMINISTERED 1300 BREATHING TX AT THIS TIME. PT IS IN NO RESPIRATORY DISTRESS, SUCTIONED A MODERATE AMOUNT OF THICK YELLOW SECRETIONS FROM PT. PT IS SATURATING 100% ON TRACH T-PIECE. WILL CONTINUE TO MONITOR
[2021-11-17] MEDS: METOPROLOL 25 MG TAB GT SCH (10:46)
[2021-11-17 12:00] VITALS: BP 149/88
[2021-11-17] MEDS ORDERED: VANCOMYCIN HCL 1.25 GM in DEXTROSE 5% 250 ML IV SCH (14:00)
--- NOTE | 2021-11-17 14:46 | NUR ---
11/17/21 RD INITIAL ASSESSMENT COMPLETED PLEASE REFER TO NUTRITION ASSESSMENT UNDER CARE ACTIVITY FOR ESTIMATED NUTRITIONAL NEEDS. 1. RECOMMEND GLUCERNA 1.2 WITH A GOAL RATE OF 65 ML/HR WITH ROSE BID -FWF: 200 ML Q6H OR PER MD -START AT 20 ML/HR AND INCREASE BY 20 ML Q4H TOLERATED -WITH ROSE BID, PT WILL RECEIVE >85% ESTIMATED KCAL AND 100% ESTIMATED PROTEIN NEEDS; ADEQUATE 2. MONITOR NUTRITION-RELATED LAB VALUES 3. RD TO FOLLOW-UP 2-3 DAYS, HIGH RISK [address]ODI [address]
[2021-11-17 16:00] VITALS: BP 112/65
--- NOTE | 2021-11-17 16:00 | NUR ---
RECEIVE DIETARY ORDER TO FEED PATIENT GLUCERNA 1.2 START 20ML/HR UNTIL REACH 65 ML/HR BU INCREASE 20ML/HR AFTER 4 HOUR TUBE FEEDING. PATIENT VOMITING AFTER START TUBE FEEDING FOR ABOUT HALF HOUR. MEANWHILE, PATIENT HAS FEVER (TEMP 100.8). BEFORE NURSE GAVE TYLENOL. ABOUT 5 MINUTES LATER AFTER GIVE PATIENT TYLENOL WITH ABOUT 30ML WATER PLUS 50ML WATER FLUSH. PATIENT THROW UP ABOUT 30 ML LIGHT YELLOW COLOR LIQUID W/ TRENTON-GUALLPA POSITION. NURSE STOP TUBE FEED AT THIS TIME, INFORM DR. GARCIA AND RECEIVE TO HAVE CHEST X-RAY, CONSULT W/ DR. DURAN, COLLECTING UA, BLOOD CULTURE. WILL CONTINUE TO MONITOR PATIENT.
--- NOTE | 2021-11-17 16:27 | NUR ---
DC PLANNING: THE PATIENT PRES[place]ED [place] [facility] [place] C/O FEVER OF 102.8, LETHARGY AND TACHYCARDIA. H/O CVA WITH RIGHT HEMIPLEGIA, HTN, DM AND CHRONIC RESPIRATORY FAILURE WITH TRACHEOSTOMY. WBC 23.5, LEFT SHIFT NOTED, CXR SHOWS BILATERAL OPACITIES, URINE DIP SHOWS UTI. THE PATIENT WAS GIVEN IV FLUID BOLUS, ROCEPHIN AND VANCO IV IN ED. CONTINUED ON ZOSYN AND VANCO, CONSULTS ORDERED WITH PULMO, ID, AND CARDIOLOGY. CM CALLED THE PATIENTS SON AND LEFT VM INTRODUCING SELF. THE PLAN FOR PATIENT WHEN HE IS CLINICALLY STABLE IS TO RETURN TO [facility], CM WILL FOLLOW.
[2021-11-17] MEDS ORDERED: METOCLOPRAMIDE 10 MG/2 ML INJ VIAL IVP PRN (18:00)
[2021-11-17] MEDS: PIPERACILLIN/TAZOBACTAM 3.375 GM in DEXTROSE 5% 50 ML IV SCH ×2 (18:33→23:53)
--- NOTE | 2021-11-17 19:30 | NUR ---
ENDORSE PT PM SHIFT NURSE WHILE PATIENT REST IN BED, PIV AT R.WRIST 18G W/ D5 1/2NS 100ML/HR INFUSING, PM SHIFT NURSE WILL F/U W/ UA & BLOOD CULTURE RESULT, AND CONSULT W/ DR. DURAN. X-RAY TECH IS HERE FOR CHEST X-RAY.
[2021-11-17 20:00] VITALS: BP 177/90
--- NOTE | 2021-11-17 20:20 | NUR ---
PT PRESENTS LAYING IN BED, AWAKE, HOB ELEVATED, ON COOL AEROSOL T-PIECE 6LPM FIO2 28% SPO2 AT 100%. ANTERIOR AUSCULTATIONS REVEALED COARSE CRACKLES THROUGHOUT ALL LUNG MONTES, SXN FOR SMALL PALE/YELLOW THICK SECRETIONS, NO SIGNS OF RESPIRATORY DISTRESS NOTED AT THIS TIME. ADMINISTER INH TX DUONED AND MUCOMYST, PT HR INCREASED BY MORE THAN 10 BPM THEREFOR TX WAS TERMINATED. PT HR IS HAS NOW DECREASED AND WILL CONTINUE TO MONITOR.
[2021-11-17] MEDS: METOPROLOL 50 MG TAB GT SCH (20:50)
[2021-11-17] MEDS ORDERED: Z-GUARD PASTE TP PRN (21:55)
[2021-11-17] MEDS ORDERED: Z-GUARD PASTE TP ONE (22:04)
[2021-11-18] MEDS: ALBUTEROL SULFATE/IPRATROPIU 3 ML SOL IH SCH ×6 (00:10→20:20)
[2021-11-18] MEDS: ACETYLCYSTEINE 10% (100 MG/ML) 100 MG/ML VIAL INH SCH ×5 (03:00→20:20)
[2021-11-18 04:00] VITALS: BP 135/90
[2021-11-18] MEDS: DEXT 5% / NACL 0.45% 1,000 ML IV SCH ×2 (05:15→16:22)
[2021-11-18] MEDS: PIPERACILLIN/TAZOBACTAM 3.375 GM in DEXTROSE 5% 50 ML IV SCH ×3 (05:15→17:33)
--- NOTE | 2021-11-18 05:30 | NUR ---
LOIS TREVIZO. RECHECKED PATIENT. FOUND R ARM SWOLLEN WITH BLISTERS. IV INFILTRATION. PICTURE TAKEN AT 0540 CHARGE NURSE CASANDRA WASHINGTON AWARE. 0545 PUT IN WOUND CARE EVAL ORDER. PT'S ARM ELEVATED TO REDUCE SWELLING. NEW IV PLACED IN L WRIST 20G. IV FLUIDS RESUMED. WILL CONTINUE TO MONITOR.
[2021-11-18 06:14] LABS: EOSINOPHILS % (AUTO) 0.1 % (0.0-4.0); HEMATOCRIT 35.3 % (36-52); HEMOGLOBIN 11.5 g/dL (12.0-18.0); LYMPHOCYTES # (AUTO) 0.8 K/uL (2.0-11.5); LYMPHOCYTES % (AUTO) 5.2 % (20.5-51.1); MEAN CORPUSCULAR HEMOGLOBIN 27 pg (27-31); MEAN CORPUSCULAR HGB CONC 33 g/dL (33-37); MEAN CORPUSCULAR VOLUME 83.9 fL (80-94); MONOCYTES # (AUTO) 1.3 K/uL (0.8-1.0); MONOCYTES % (AUTO) 8.6 % (1.7-9.3); NEUTROPHILS # (AUTO) 12.7 K/uL (1.8-7.7); NEUTROPHILS % (AUTO) 86.1 % (42.2-75.2); PLATELET COUNT (AUTO) 233 K/uL (140-450); RED BLOOD CELL COUNT(AUTO) 4.21 MIL/uL (4.20-6.10); RED CELL DISTRIBUTION WIDTH 16.1 % (11.6-13.7); WHITE BLOOD COUNT (AUTO) 14.8 K/uL (4.8-10.8)
[2021-11-18 06:30] LABS: ALBUMIN 2.8 g/dL (3.4-5.0); ANION GAP 10.1 (8-16); ASPARTATE AMINOTRANSFERASE 21 U/L (15-37); CARBON DIOXIDE 28.3 mmol/L (21-32); CHLORIDE 101 mmol/L (98-107); CREATININE 1.1 mg/dL (0.6-1.3); GLUCOSE 226 mg/dL (74-106); MAGNESIUM 1.5 mg/dL (1.8-2.4); PHOSPHORUS 2.6 mg/dL (2.5-4.9); POTASSIUM 3.4 mmol/L (3.5-5.1); SODIUM SERUM 136 mmol/L (136-145); TOTAL BILIRUBIN 0.4 mg/dL (0.0-1.0); UREA NITROGEN, BLOOD 14 mg/dL (7-18)
[2021-11-18] MEDS: BLOOD GLUCOSE MONITORING 1 DEV DEV FS SCH ×4 (06:46→21:36)
[2021-11-18] MEDS: INSULIN LISPRO SLIDING SCALE 100 UNITS/ML VIAL SUBQ PRN ×3 (06:49→21:38)
--- NOTE | 2021-11-18 07:25 | NUR ---
RECEIVED BEDSIDE REPORT FROM CORPORATE DEVELOPMENT ANALYST NURSE FOR CONTINUITY OF CARE. PT IS APHASIC, NONVERBAL. ON TRACH TO T BAR WITH 5L O2. G TUBE IN PLACE, NO FEEDING RUNNING. BLISTERS ON THE RIGHT ARM INTACT, NOT OPEN. SACRAL REDNESS WITH OPTIFOAM IN PLACE. GUALLPA CATH IN PLACE DRAINING CLEAR, YELLOW URINE. IV IS INTACT IN THE RIGHT WRIST INFUSING FLUIDS ORDERED. PT IS STABLE. PLAN OF CARE DISCUSSED.
[2021-11-18 08:00] VITALS: BP 129/76
--- NOTE | 2021-11-18 09:15 | NUR ---
WOUND CARE EVALUATION NOTE: CHARGE NURSE MICHAEL REPORTS OF RIGHT UPPER EXTREMITY IV INFILTRATION / EXTRAVASATION. BOTH CHARGE NURSE AND WOUND CARE NURSE ASSESS RIGHT UPPER ARM SKIN WITH MULTIPLE BLISTERING SKIN, LARGEST TO ELBOW AREA 6X5CM, 3CM ELEVATION INTACT CLEAR FLUIDS. PER CHARGE NURSE IV FLUIDS WAS VANCOMYCIN. RIGHT WRIST PARTIAL THICKNESS SKIN LOSS 0.5X1CM WOUND BED PINK, MOIST NO ODOR MASSIEL-WOUND SKIN SWELLING, PALE, AND INTACT. DORSAL HAND SWELLING, WARM TO TOUCH. CAPILLARY REFILLED >2 SEC X 5 FINGERS. POLICY AND PROCEDURES OF EXTRAVASATION REVIEWED TOGETHER WITH CHARGE NURSE; DOCTOR NOTIFIED. MST DIRECTOR NOTIFIED. RIGHT ARM APPLY OIL EMULSION DRESSING AND COVER WITH KERLIX ROLL LOOSELY TO PREVENT OPEN SKIN. KEEP RIGHT ARM ELEVATED. PT. ADMITTED FROM [facility] TO [facility] FOR ELEVATION TEMP. 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 PT. ADMITTED WITH MOISTURE ASSOCIATED DERMATITIS AND LOW JONO SCALE AT HIGH RISK, PT. HAS HX OF PRESSURE INJURY, CONTINUE TO FOLLOW PRESSURE INJURY PREVENTION INTERVENTIONS. POC DISCUSSED WITH PRIMARY RN RECOMMENDATIONS -CLEANSE RIGHT UPPER EXTREMITY BLISTERS AND RIGHT WRIST WOUND WITH NS, PAT DRY, APPLY OIL EMULSION DRESSING , COVER WITH ABD PAD AND WRAP WITH KERLIX ROLL LOOSELY CHANGE DAILY AND PRN IF SOILING -CLEANSE GROINS, BUTTOCKS AND SACRALCOCCYX WITH MILD SOAP AND WATER, PAT DRY APPLY Z GUARD BID AND AND PRN IF SOILING -MAY APPLY FOAM DRESSING TO SACRALCOCCYX OLD HEALED SCAR TISSUE PREVENTION -APPLY SKIN PREP.TO BILATERAL HEEL BID AND GARY -POSITIONING: TURN AND REPOSITION PATIENT Q 2H OR SOONER USE PILLOWS TO KEEP BONY PROMINENCES FROM DIRECT CONTACT WITH SURFACES USE REPOSITIONING WEDGES TO PROVIDE 30-DEGREE ANGLE FOR SIDE LYING POSITIONS OFFLOADING OR FOAM DRESSING TO ALL TUBING TO PREVENT MEDICAL DEVICES RELATED PRESSURE INJURY -RE-EVALUATING AND MANAGING INCONTINENCE MONITOR SKIN CONDITION DURING POSITION CHANGE DO NOT MASSAGE REDNESS, BONY PROMINENCES FREQUENT MASSIEL-CARE AND PROVIDE BARRIER CREAMS PRN IF SOILING MOISTURE CONTROL BY OFFER BED WINN/URINAL /ABSORBENT PAD TO WICK AND HOLD MOISTURE KEEP SKIN DRY AND PROTECT FROM FRICTION -MANAGE FRICTION/SHEAR/MOBILITY KEEP HOB AT THE LOWEST LEVEL OF ELEVATION NO MORE THAN 30-DEGREE UNLESS OTHERWISE CONTRAINDICATED USE LIFT SHEET OR TRANSFER DEVICE TO MOVE PATIENT AND PREVENT LATERAL SHEER. PROTECT HEELS, ELBOWS BONY PROMINENCES WITH SKIN BERRIES OR FOAM DRESSING IF EXPOSED TO FRICTION OFFLOAD BILATERAL HEELS BY PLACING PILLOWS UNDER CALVES AT ALL TIMES, UNLESS OTHERWISE CONTRAINDICATED -PRESSURE REDISTRIBUTION SURFACE THERAPY LITA ISOFLEX MATTRESS -NUTRITION: PLEASE FOLLOW RD RECOMMENDATIONS AND OFFER NUTRITION SUPPLEMENTS IF ORDERED.
--- NOTE | 2021-11-18 09:30 | NUR ---
PT IS AWAKE WITH EYES OPEN. BREATHING UNLABORED ON TRACH TO T BAR 5L O2. G TUBE IS IN PLACE. PT WAS GIVEN BED BATH AND REPOSITIONED. PT IS STABLE AT THIS TIME.
[2021-11-18] MEDS: lisinopriL 5 MG TAB GT SCH (09:36)
[2021-11-18] MEDS: METOPROLOL 50 MG TAB GT SCH ×2 (09:37→21:13)
--- NOTE | 2021-11-18 11:27 | NUR ---
MESSAGED DR. GARCIA ABOUT THE POTASSIUM LEVEL OF 3.4 AND MAGNESIUM OF 1.5. SHE ORDERED MAG RIDER 2 GRAM IVPB AND K 40 MEQ ELIXIR FOR G TUBE. WILL ADMINISTER ONCE VERIFIED.
[2021-11-18 12:00] VITALS: BP 138/82
[2021-11-18] MEDS ORDERED: POTASSIUM CHLORIDE 20% 40 MEQ/15 ML UDC GT SCH (12:00)
[2021-11-18] MEDS ORDERED: MAG SULF 2000 MG/WATER PREMIX 50 ML IV SCH (12:00)
--- NOTE | 2021-11-18 12:15 | NUR ---
POTASSIUM ELIXIR 40 MEQ GIVEN VIA G TUBE ORDERED FOR POTASSIUM LEVEL OF 3.4.
[2021-11-18] MEDS: NON ADHERENT DRESSING TP SCH (13:41)
[2021-11-18] MEDS: FOAM DRESSING TP SCH (13:41)
[2021-11-18] MEDS: Z-GUARD PASTE TP SCH (13:41)
--- NOTE | 2021-11-18 13:43 | NUR ---
MAG RIDER 2 GRAMS IVPB WAS GIVEN FOR MAGNESIUM LEVEL OF 1.5. EDUCATION PROVIDED AND REINFORCEMENT NEEDED. PT IS APHASIC AND NONVERBAL.
--- NOTE | 2021-11-18 14:17 | NUR ---
RECEIVED CALL FROM PHARMACIST THAT VANCOMYCIN IS EXPIRING. MESSAGED DR. SIGALA TO ASK IF HE WOULD LIKE TO RENEW THIS ORDER FOR VANCO. WILL WAIT FOR RESPONSE.
[2021-11-18 16:00] VITALS: BP 108/62
[2021-11-18] MEDS: VANCOMYCIN 1,000 MG in DEXTROSE 5% 250 ML IV SCH (16:07)
[2021-11-18] MEDS: MUPIROCIN 2% OINT 22 GM TUBE TP SCH (17:33)
[2021-11-18] MEDS: CHLORHEXADINE GLUC 2% CLOTH TP SCH (17:33)
--- NOTE | 2021-11-18 18:16 | NUR ---
PER DR. SIGALA, RENEW THE ORDER FOR VANCOMYCIN PER PHARMACY.
--- NOTE | 2021-11-18 19:09 | NUR ---
ENDORSED PT TO FLOOR PLAN ADJUSTER NURSE FOR CONTINUITY OF CARE. PT IS STABLE. PLAN OF CARE DISCUSSED.
--- NOTE | 2021-11-18 19:10 | NUR ---
RECEIVED REPORT FROM AM NURSE. PATIENT ON TRACH TO T-BAR. NO S/S OF RESPIRATORY DISTRESS. BREATHING EVEN UNLABORED. IVF D5 1/2 NS AT 100 ML/HR INFUSING ON THE LEFT WRIST. G-TUBE FEEDING RUNNING AT 50 ML/HR. ALL SAFETY PRECAUTIONS ARE IN PLACE. CALL LIGHT WITHIN REACH. WILL CONTINUE TO MONITOR.
[2021-11-18 20:00] VITALS: BP 120/64
--- NOTE | 2021-11-18 21:13 | NUR ---
ALL 2100 MEDICATIONS ADMINISTERED PER MD ORDER.
[2021-11-19] VITALS: BP 114/70
[2021-11-19] MEDS: ALBUTEROL SULFATE/IPRATROPIU 3 ML SOL IH SCH ×6 (00:10→19:26)
[2021-11-19] MEDS: Z-GUARD PASTE TP SCH ×2 (01:00→12:05)
--- NOTE | 2021-11-19 03:15 | NUR ---
CHECKED PATIENT, PT IS SLEEPING. NO SOB NOTED. RESPIRATION REGULAR NON LABORED. CALL LIGHT WITHIN REACH.
[2021-11-19] MEDS: DEXT 5% / NACL 0.45% 1,000 ML IV SCH ×4 (03:55→23:55)
[2021-11-19 04:00] VITALS: BP 111/67
[2021-11-19 06:07] LABS: LYMPHOCYTES # (AUTO) 0.9 K/uL (2.0-11.5); LYMPHOCYTES % (AUTO) 12.9 % (20.5-51.1); MEAN CORPUSCULAR VOLUME 84.5 fL (80-94); MONOCYTES # (AUTO) 0.8 K/uL (0.8-1.0)
[2021-11-19] MEDS: PIPERACILLIN/TAZOBACTAM 3.375 GM in DEXTROSE 5% 50 ML IV SCH ×6 (06:23→23:32)
[2021-11-19 06:24] LABS: BASOPHILS % (AUTO) 0.1 % (0.0-2.0); EOSINOPHILS % (AUTO) 14.4 % (0.0-4.0); HEMOGLOBIN 10.1 g/dL (12.0-18.0); MEAN CORPUSCULAR HEMOGLOBIN 27 pg (27-31); MEAN CORPUSCULAR HGB CONC 32 g/dL (33-37); MONOCYTES % (AUTO) 11.5 % (1.7-9.3); NEUTROPHILS # (AUTO) 4.1 K/uL (1.8-7.7); NEUTROPHILS % (AUTO) 61.1 % (42.2-75.2); PLATELET COUNT (AUTO) 199 K/uL (140-450); RED BLOOD CELL COUNT(AUTO) 3.67 MIL/uL (4.20-6.10); RED CELL DISTRIBUTION WIDTH 16.4 % (11.6-13.7); WHITE BLOOD COUNT (AUTO) 6.7 K/uL (4.8-10.8)
[2021-11-19] MEDS: BLOOD GLUCOSE MONITORING 1 DEV DEV FS SCH ×4 (06:36→21:13)
--- NOTE | 2021-11-19 06:36 | NUR ---
BLOOD SUGAR WAS 222, HUMALOG INSULIN ADMINISTERED PER SLIDING SCALE.
[2021-11-19] MEDS: INSULIN LISPRO SLIDING SCALE 100 UNITS/ML VIAL SUBQ PRN ×4 (06:37→21:16)
[2021-11-19 07:06] LABS: ALBUMIN 2.1 g/dL (3.4-5.0); ANION GAP 9.8 (8-16); ASPARTATE AMINOTRANSFERASE 48 U/L (15-37); CARBON DIOXIDE 25.3 mmol/L (21-32); CHLORIDE 100 mmol/L (98-107); CREATININE 1.2 mg/dL (0.6-1.3); MAGNESIUM 1.8 mg/dL (1.8-2.4); POTASSIUM 3.1 mmol/L (3.5-5.1); SODIUM SERUM 132 mmol/L (136-145); TOTAL BILIRUBIN 0.3 mg/dL (0.0-1.0); UREA NITROGEN, BLOOD 17 mg/dL (7-18)
--- NOTE | 2021-11-19 07:15 | NUR ---
RECEIVED BEDSIDE REPORT FROM RN CASE MGR NURSE FOR CONTINUITY OF CARE. PT IS APHASIC, NONVERBAL. TRACH TO T BAR 5L O2. ON TELE MONITOR. G TUBE IN PLACE INFUSING FEEDING ORDERED. GUALLPA CATH IN PLACE DRAINING CLEAR, YELLOW URINE. SACRAL REDNESS NOTED. BLISTERS ON THE RIGHT ARM. PT IS STABLE. PLAN OF CARE DISCUSSED.
[2021-11-19 07:22] LABS: GLUCOSE 437 mg/dL (74-106)
--- NOTE | 2021-11-19 07:34 | NUR ---
ENDORSED PATIENT TO AM NURSE FOR CONTINUITY OF CARE. PT STABLE.
[2021-11-19 08:00] VITALS: BP 150/89
[2021-11-19] MEDS: VANCOMYCIN 1,000 MG in DEXTROSE 5% 250 ML IV SCH (08:50)
[2021-11-19] MEDS: METOPROLOL 50 MG TAB GT SCH ×2 (08:51→21:05)
[2021-11-19] MEDS: lisinopriL 5 MG TAB GT SCH (08:51)
--- NOTE | 2021-11-19 09:30 | NUR ---
PT IS AWAKE, NONVERBAL. NO RESP DISTRESS NOTED. O2 SAT IS 99%. FEEDING IS INFUSING THROUGH G TUBE. PT WAS REPOSITIONED. FLACC 0. PT STABLE.
--- NOTE | 2021-11-19 10:05 | NUR ---
(11/19/21) RD FOLLOW UP COMPLETED PLEASE REFER TO NUTRITION PROGRESS NOTE UNDER CARE ACTIVITY FOR ESTIMATED NUTRITION NEEDS. RD RECOMMENDATIONS: 1. CONTINUE GLUCERNA 1.2, ADV TOWARDS GOAL RATE OF 65 ML/HR WITH ROSE BID -FWF: 200 ML Q6H OR PER MD -WITH ROSE BID, PT WILL RECEIVE >85% ESTIMATED KCAL AND 100% ESTIMATED PROTEIN NEEDS; ADEQUATE 2. MONITOR NUTRITION-RELATED LAB VALUES 3. RD TO FOLLOW-UP 2-3 DAYS, HIGH RISK BASILIO GALDAMEZ, , RDN
--- NOTE | 2021-11-19 11:18 | NUR ---
PT HAD A LARGE BM, LIQUID IN CONSISTENCY. PT WAS GIVEN BED BATH AND REPOSITIONED. NO DISTRESS NOTED ON TRACH TO T BAR. O2 SAT IS 98%. G TUBE FEEDING IS INFUSING AND RESIDUAL IS LESS THAN 5 ML. PT TOLERATING FEEDING WELL. WILL CONTINUE TO MONITOR.
[2021-11-19 12:00] VITALS: BP 129/78
[2021-11-19] MEDS: FOAM DRESSING TP SCH (12:04)
[2021-11-19] MEDS: NON ADHERENT DRESSING TP SCH (12:04)
--- NOTE | 2021-11-19 13:00 | NUR ---
WOUND CARE WAS PROVIDED ON THE RIGHT ARM. WOUND HAS MULTIPLE FLUID FILLED BLISTERS, SOME OF WHICH HAVE OPENED. SKIN WAS CLEANSED WITH NS AND PATTED DRY. OIL EMULSION DRESSING APPLIED TO ALL BLISTERS AND OPEN SKIN. ABD PAD APPLIED AND LOOSELY WRAPPED WITH KERLIX ROLL. PT TOLERATED THIS WELL.
--- NOTE | 2021-11-19 13:43 | NUR ---
INFORMED DR. ULLOA THAT THE POTASSIUM LEVEL IS 3.1. HE PROVIDED VERBAL ORDER FOR POTASSIUM ELIXIR VIA G TUBE FOR 40 MEQ. WILL ADMIN ONCE VERIFIED.
[2021-11-19] MEDS ORDERED: POTASSIUM CHLORIDE 20% 40 MEQ/15 ML UDC GT PRN (13:45)
[2021-11-19] MEDS ORDERED: POTASSIUM CHLORIDE 20% 40 MEQ/15 ML UDC GT SCH (13:56)
--- NOTE | 2021-11-19 14:38 | NUR ---
PT POTASSIUM LEVEL 3.1, PT GIVEN KCL 40MEQ VIA G TUBE.
[2021-11-19 16:00] VITALS: BP 136/78
--- NOTE | 2021-11-19 17:00 | NUR ---
PT HAD ANOTHER LARGE BM, LIQUID AND BROWN IN COLOR. PT WAS CHANGED AND REPOSITIONED. RIGHT ARM SWELLING STILL NOTED WITH DRESSING INTACT. ELEVATED WITH THREE PILLOWS. PT DOES NOT APPEAR TO BE IN ANY PAIN. FLACC 0. BREATHING UNLABORED ON TRACH TO T BAR 5L O2. PT STABLE.
[2021-11-19] MEDS: CHLORHEXADINE GLUC 2% CLOTH TP SCH (17:10)
[2021-11-19] MEDS: MUPIROCIN 2% OINT 22 GM TUBE TP SCH (17:10)
--- NOTE | 2021-11-19 19:21 | NUR ---
ENDORSED PT TO RESIDENTIAL BUILDING INSPECTOR NURSE FOR CONTINUITY OF CARE. PT IS STABLE. PLAN OF CARE DISCUSSED.
--- NOTE | 2021-11-19 19:22 | NUR ---
RECEIVED REPORT FROM AM NURSE. PATIENT IS APHASIC WELL RESTED, TRACH TO T-BAR. NO S/S OF RESPIRATORY DISTRESS. CHEST RISE AND FALL SYMMETRICALLY. NO LABORED BREATHING. ALL SAFETY PRECAUTIONS ARE IN PLACE. IVF D51/2 NS INFUSING AT 100 ML/HR ON THE LEFT WRIST. G-TUBE FEEDING GLUCERNA RUNNING AT 50 ML/HR. ALL SAFETY MEASURES ARE IN PLACE. CALL LIGHT ON EASY REACH. WILL CONTINUE TO MONITOR PT.
[2021-11-19 20:00] VITALS: BP 126/76
--- NOTE | 2021-11-19 21:05 | NUR ---
ADMINISTERED ALL SCHEDULED MEDICATIONS.
--- NOTE | 2021-11-19 21:22 | NUR ---
BLOOD SUGAR WAS 222, ADMINISTERED HUMALOG INSULIN ORDERED PER SLIDING SCALE.
[2021-11-20] VITALS: BP 127/73
[2021-11-20] MEDS: Z-GUARD PASTE TP SCH ×2 (01:05→12:09)
[2021-11-20] MEDS: VANCOMYCIN 1,000 MG in DEXTROSE 5% 250 ML IV SCH (01:32)
--- NOTE | 2021-11-20 01:32 | NUR ---
SCHEDULED VANCOMYCIN IVPB ADMINISTERED PER MD ORDER
[2021-11-20 04:00] VITALS: BP 129/70
[2021-11-20] MEDS: ALBUTEROL SULFATE/IPRATROPIU 3 ML SOL IH SCH ×4 (04:10→15:29)
[2021-11-20] MEDS: PIPERACILLIN/TAZOBACTAM 3.375 GM in DEXTROSE 5% 50 ML IV SCH ×2 (05:52→12:09)
[2021-11-20] MEDS: BLOOD GLUCOSE MONITORING 1 DEV DEV FS SCH ×3 (06:46→16:35)
--- NOTE | 2021-11-20 06:46 | NUR ---
BLOOD SUGAR WAS 260, HUMALOG INSULIN ADMINISTERED ORDERED PER SLIDING SCALE.
[2021-11-20] MEDS: INSULIN LISPRO SLIDING SCALE 100 UNITS/ML VIAL SUBQ PRN ×3 (06:47→16:39)
[2021-11-20 07:15] LABS: BASOPHILS % (AUTO) 0.1 % (0.0-2.0); EOSINOPHILS # (AUTO) 1.1 K/uL (0-0.4); HEMATOCRIT 29.2 % (36-52); HEMOGLOBIN 9.6 g/dL (12.0-18.0); LYMPHOCYTES # (AUTO) 0.9 K/uL (2.0-11.5); MEAN CORPUSCULAR HEMOGLOBIN 28 pg (27-31); MEAN CORPUSCULAR HGB CONC 33 g/dL (33-37); MEAN CORPUSCULAR VOLUME 84.1 fL (80-94); MONOCYTES # (AUTO) 0.7 K/uL (0.8-1.0); NEUTROPHILS # (AUTO) 2.5 K/uL (1.8-7.7); NEUTROPHILS % (AUTO) 48.5 % (42.2-75.2); PLATELET COUNT (AUTO) 212 K/uL (140-450); RED BLOOD CELL COUNT(AUTO) 3.47 MIL/uL (4.20-6.10); RED CELL DISTRIBUTION WIDTH 16.3 % (11.6-13.7); WHITE BLOOD COUNT (AUTO) 5.2 K/uL (4.8-10.8)
--- NOTE | 2021-11-20 07:21 | NUR ---
ENDORSED TO AM NURSE FOR CONTINUITY OF CARE. PT IN STABLE CONDITION.
[2021-11-20 07:26] LABS: ALBUMIN 2.2 g/dL (3.4-5.0); ANION GAP 6.9 (8-16); ASPARTATE AMINOTRANSFERASE 50 U/L (15-37); CARBON DIOXIDE 28.5 mmol/L (21-32); CHLORIDE 104 mmol/L (98-107); CREATININE 1.1 mg/dL (0.6-1.3); GLUCOSE 261 mg/dL (74-106); MAGNESIUM 2.1 mg/dL (1.8-2.4); PHOSPHORUS 2.5 mg/dL (2.5-4.9); POTASSIUM 3.4 mmol/L (3.5-5.1); SODIUM SERUM 136 mmol/L (136-145); TOTAL BILIRUBIN 0.2 mg/dL (0.0-1.0); UREA NITROGEN, BLOOD 15 mg/dL (7-18)
--- NOTE | 2021-11-20 07:30 | NUR ---
RECEIVED REPORT FROM COLLEGE INSTRUCTOR NURSE FOR CONTINUITY OF CARE. PATIENT IS ON TRACH TO T-BAR, AND GUALLPA CATHETER. RT WAS PRESENT WHEN ENTERING ROOM. PATIENT WAS AWAKE WITH EYES OPEN A&O X1, LYING SUPINE SITTING UP ABOUT 30 DEGREES. IV FLUID WAS RUNNING D5 1/2 NS AT 100ML/HR. PATIENT ALSO HAS RIGHT ARM WOUND THAT IS COVERED WITH A DRESSING. WILL MONITOR DRESSING AND WOUND, PROVIDE CARE NEEDED. WILL CONTINUE TO MONITOR PATIENT.
[2021-11-20 08:00] VITALS: BP 166/101
[2021-11-20 08:03] LABS: EOSINOPHILS % (AUTO) 21.3 % (0.0-4.0); LYMPHOCYTES % (AUTO) 17.1 % (20.5-51.1)
[2021-11-20] MEDS: METOPROLOL 50 MG TAB GT SCH (09:08)
[2021-11-20] MEDS: lisinopriL 5 MG TAB GT SCH (09:09)
--- NOTE | 2021-11-20 10:00 | NUR ---
FAMILY AT BEDSIDE VISITING. NO RESPIRATORY DISTRESS NOTED. PT WAS CHANGED AND REPOSITIONED. LARGE BM, LIQUID IN CONSISTENCY. ORAL CARE PROVIDED. PT TOLERATING G TUBE FEEDING WELL, LESS THAN 5 ML RESIDUAL. PT STABLE.
[2021-11-20] MEDS: DEXT 5% / NACL 0.45% 1,000 ML IV SCH (10:44)
--- NOTE | 2021-11-20 11:19 | NUR ---
PT WAS REPOSITIONED. FEEDING INFUSING VIA G TUBE. O2 SAT IS 98% ON TRACH TO T BAR 5L O2. GUALLPA CATH IS DRAINING YELLOW, CLEAR URINE. PT IS STABLE.
[2021-11-20 12:00] VITALS: BP 150/86
[2021-11-20] MEDS: NON ADHERENT DRESSING TP SCH (12:09)
[2021-11-20] MEDS: FOAM DRESSING TP SCH (12:09)
--- NOTE | 2021-11-20 13:17 | NUR ---
LOOKED IN ON PATIENT. PATIENT WAS RESTING LYING SUPINE. GLUCERNA WAS RUNNING INTO PATIENT'S G-TUBE WITHOUT ANY ISSUES. IV WAS RUNNING D5 1/2 AT 100ML/HR. PATIENT'S EYES OPENED I ENTERED THE ROOM. TRACH TO T-BAR INFUSING OXYGEN. VITAL SIGNS STABLE. WILL CONTINUE TO MONITOR.
[2021-11-20] MEDS ORDERED: IV Vancomycin IV (13:23)
[2021-11-20] MEDS ORDERED: IV Zosyn IV (13:23)
--- NOTE | 2021-11-20 14:40 | NUR ---
PROVIDED SUCTIONING FOR PATIENT. ASSISTED PROJECT EXECUTIVE IN BATHING AND CHANGING THE PATIENT; PROVIDING NEW BEDDING, LENNY PADS, AND GOWN. BATHING WAS DONE WITH WASHCLOTHS AND WATER. Z-GUARD WAS APPLIED TO PATIENT'S COCCYX. PATIENTS BREATHING WAS MONITORED WHILE CARE WAS BEING GIVEN. PATIENT TOLERATED CARE WELL SEEN BY O2 REMAINING IN NORMAL RANGE. NOTICED THAT OXYGEN SENSOR ON LEFT TOE WAS COMING OFF, APPLIED A NEW SENSOR TO RIGHT INDEX FINGER. PATIENT IS NOW BEING VISITED BY FAMILY. WILL CONTINUE TO MONITOR PATIENT.
[2021-11-20 15:34] VITALS: BP 136/78
[2021-11-20 16:00] VITALS: BP 152/88
--- NOTE | 2021-11-20 16:03 | NUR ---
PROVIDED REPORT TO WALKER HERNANDEZ FROM [facility]. ALL QUESTIONS ANSWERED. ASKED TO LEAVE IV IN PLACE THERE WILL BE IV ANTIBIOTICS ADMINISTERED AT THE FACILITY. INFORMED HIM OF THE WOUND CARE INSTRUCTIONS FOR THE RIGHT ARM AND BUTTOCKS.
--- NOTE | 2021-11-20 16:05 | NUR ---
INFORMED PT'S FAMILY AYSE MELARA, PHONE NUMBER FOUND IN CHART, THAT PT WILL BE TRANSFERRED BACK TO [facility]. ALL QUESTIONS ANSWERED.
--- NOTE | 2021-11-20 18:58 | NUR ---
PT WAS PICKED UP BY [facility]. TRACH TO T PIECE IN PLACE. O2 SAT IS STABLE, 98% ON 5L O2. G TUBE IS IN PLACE. IV IS IN PLACE. WOUND DRESSING ON THE RIGHT ARM. GUALLPA CATH IN PLACE. PT IS STABLE. TRANSFERRED TO [facility].
== END 2021-11-20 19:10 | DRG 871 ==
LOC: MED 10:41 → MTU 13:49
PROVIDERS: ADMIT Family Medicine; ATTEND Family Medicine
DX: A41.9 Sepsis, unspecified organism (principal); J18.9 Pneumonia, unspecified organism; J96.01 Acute respiratory failure with hypoxia; G93.41 Metabolic encephalopathy; E43 Unspecified severe protein-calorie malnutrition; N39.0 Urinary tract infection, site not specified; I69.351 Hemiplegia and hemiparesis following cerebral infarction affecting right dominant side; I10 Essential (primary) hypertension; E11.9 Type 2 diabetes mellitus without complications; R65.20 Severe sepsis without septic shock; G40.909 Epilepsy, unspecified, not intractable, without status epilepticus; E05.90 Thyrotoxicosis, unspecified without thyrotoxic crisis or storm; Z20.822 Contact with and (suspected) exposure to COVID-19; S30.0XXA Contusion of lower back and pelvis, initial encounter; X58.XXXA Exposure to other specified factors, initial encounter; Z93.0 Tracheostomy status; Z79.899 Other long term (current) drug therapy; Z68.24 Body mass index [BMI] 24.0-24.9, adult; Y93.89 Activity, other specified; Y92.89 Other specified places as the place of occurrence of the external cause; Y99.8 Other external cause status
CPT/HCPCS: 36415; 36600; 70450; 71045; 74018; 80053; 80202; 81001; 82550; 82803; 82948; 83036; 83605; 83690; 83735; 84100; 84484; 85025; 85610; 85730; 87040; 87070; 87081; 87086; 87205; 89220; 93005; 94640; 96365; 96367; 97163-GP; 99285; J0696; J1644; J1815; J2543; J3370; J3475; J7030; J7060; J7613

== ENCOUNTER 2022-01-21 17:09 | Inpatient (IN) | payer OTHER, MEDICAID ==
[~2022-01-21] VITALS: Ht 172.7 cm; Wt 86.2 kg
[~2022-01-21 17:09] MED LIST changes: +IV Vancomycin IV; +IV Zosyn IV
--- NOTE | 2022-01-21 17:18 | NUR ---
PATIENT BIBA TO BED 4.
[2022-01-21 17:23] VITALS: BP 119/63
--- NOTE | 2022-01-21 17:24 | NUR ---
RT AT BEDSIDE.
[2022-01-21] MEDS ORDERED: cefTRIAXone 1,000 MG in DEXT 5% MINI-BAG PLUS 50 ML IV ONE (18:10)
[2022-01-21 18:38] LABS: BASOPHILS % (AUTO) 0.2 % (0.0-2.0); EOSINOPHILS # (AUTO) 0.2 K/uL (0-0.4); EOSINOPHILS % (AUTO) 1.2 % (0.0-4.0); HEMATOCRIT 30.2 % (36-52); HEMOGLOBIN 9.8 g/dL (12.0-18.0); LYMPHOCYTES # (AUTO) 1.4 K/uL (2.0-11.5); LYMPHOCYTES % (AUTO) 7.5 % (20.5-51.1); MEAN CORPUSCULAR HEMOGLOBIN 28 pg (27-31); MEAN CORPUSCULAR HGB CONC 33 g/dL (33-37); MEAN CORPUSCULAR VOLUME 85.7 fL (80-94); MONOCYTES # (AUTO) 1.7 K/uL (0.8-1.0); MONOCYTES % (AUTO) 9.4 % (1.7-9.3); NEUTROPHILS # (AUTO) 15.2 K/uL (1.8-7.7); NEUTROPHILS % (AUTO) 81.7 % (42.2-75.2); PLATELET COUNT (AUTO) 312 K/uL (140-450); RED BLOOD CELL COUNT(AUTO) 3.52 MIL/uL (4.20-6.10); RED CELL DISTRIBUTION WIDTH 16.3 % (11.6-13.7); WHITE BLOOD COUNT (AUTO) 18.6 K/uL (4.8-10.8)
[2022-01-21] MEDS ORDERED: cefTRIAXone 1,000 MG VIAL ONE (18:53)
--- NOTE | 2022-01-21 18:58 | NUR ---
76 y/o male biba for elevated wbc and blood in tbar. facility called for report and stated pt is DNR and they would like us carry out their comfort measures. pt a&ox0, non ambulatory, spontaneous/flexion/incomprehensive, normal to baseline. pt has inwelling urinary cath that has dark yellow urine with blood clots. gtube in place. tbar no blood noted, crackles with inspiration and expiration. skin is cool/clammy/nonintact. pmh: cva right hemiplegia, dm2, htn, renal disease, gtube nka med: glucerna, lactobacillus, zinc, vitamin c, colace, prilosec, metoprolol, humalin n, ferrous sulfate, zestril
[2022-01-21 19:13] LABS: ANION GAP 9.1 (8-16); ASPARTATE AMINOTRANSFERASE 14 U/L (15-37); CARBON DIOXIDE 32.3 mmol/L (21-32); CHLORIDE 98 mmol/L (98-107); CREATININE 1.1 mg/dL (0.6-1.3); GLUCOSE 129 mg/dL (74-106); POTASSIUM 4.4 mmol/L (3.5-5.1); SODIUM SERUM 135 mmol/L (136-145); TOTAL BILIRUBIN 0.3 mg/dL (0.0-1.0); UREA NITROGEN, BLOOD 31 mg/dL (7-18)
--- NOTE | 2022-01-21 19:20 | NUR ---
PATIENT TURNED TO LEFT SIDE WITH PILLOW SUPPORT.
--- NOTE | 2022-01-21 19:33 | NUR ---
Pt report given to Chintan WALKER. Transfer of care at this time.
[2022-01-21 19:34] LABS: APPEARANCE,URINE CLEAR (CLEAR); BILIRUBIN,URINE NEGATIVE (NEGATIVE); BLOOD, URINE 3+ (NEGATIVE); COLOR,URINE YELLOW (YELLOW); LEUKOCYTE ESTERASE ,URINE 2+ (NEGATIVE); NITRITE, URINE NEGATIVE (NEGATIVE); UGLUCOSE NEGATIVE (NEGATIVE)
[2022-01-21 19:48] LABS: RBC,URINE 50-80 /HPF (0-5)
[2022-01-21] MEDS ORDERED: ZOLPIDEM 5 MG TAB PO PRN (20:15)
[2022-01-21] MEDS ORDERED: DOCUSATE SODIUM 100 MG GELCAP PO PRN (20:15)
[2022-01-21] MEDS ORDERED: POTASSIUM CHLORIDE 10 MEQ TABER PO PRN (20:15)
[2022-01-21] MEDS ORDERED: ONDANSETRON 4 MG/2 ML VIAL IM/IVP PRN (20:15)
[2022-01-21] MEDS ORDERED: HYDROcodone/APAP 7.5/325 MG 1 TAB PO PRN (20:15)
[2022-01-21] MEDS ORDERED: guaiFENesin DM 200/20 MG-10 ML 10 ML UDC PO PRN (20:15)
[2022-01-21] MEDS: NACL 0.9% 1,000 ML IV SCH (20:15)
[2022-01-21] MEDS ORDERED: MORPHINE SULFATE 2 MG/ML SYR IVP PRN (20:15)
[2022-01-21] MEDS ORDERED: VANCOMYCIN PER PHARMACY MC PRN (20:25)
[2022-01-21] MEDS ORDERED: VANCOMYCIN 1GM/DEXT 5% PREMIX 200 ML IV SCH (21:00)
[2022-01-21] MEDS ORDERED: PIPERACILLIN/TAZOBACTAM 3.375 GM in DEXTROSE 5% 50 ML IV SCH (21:00)
--- NOTE | 2022-01-21 21:10 | NUR ---
PATIENT TURNED TO RIGHT SIDE WITH PILLOW SUPPORT. Addendum: 01/22/22 at 0529 by [email or web address] PATIENT TURNED TO LEFT SIDE WITH PILLOW SUPPORT.
[2022-01-21] MEDS ORDERED: PIPERACILLIN/TAZOBACTAM 3.375 GM VIAL IV ONE (21:16)
[2022-01-21] MEDS ORDERED: VANCOMYCIN 1,000 MG VIAL ONE (21:16)
[2022-01-21 21:34] LABS: MAGNESIUM 2.1 mg/dL (1.8-2.4); PHOSPHORUS 3.7 mg/dL (2.5-4.9)
[2022-01-21] MEDS ORDERED: MAGN400S60 GT (22:03)
[2022-01-21] MEDS ORDERED: BISA-213 RC (22:03)
[2022-01-21] MEDS ORDERED: FLEPED RC (22:03)
[2022-01-21] MEDS ORDERED: ASPI-1749 GT (22:03)
[2022-01-21] MEDS ORDERED: LACT100C5 GT (22:03)
[2022-01-21] MEDS ORDERED: FAMO-90 GT (22:03)
[2022-01-21] MEDS ORDERED: LIP80 GT (22:03)
--- NOTE | 2022-01-21 23:01 | NUR ---
PATIENT TURNED TO RIGHT SIDE WITH PILLOW SUPPORT.
--- NOTE | 2022-01-21 23:04 | NUR ---
PATIENT TURNED TO LEFT SIDE WITH PILLOW SUPPORT.
--- NOTE | 2022-01-21 23:13 | NUR ---
PT PLACED ON CA, 7 LITERS, 28% TRACH CARE PERFORMED, WILL CONTINUE TO MONITOR.
--- NOTE | 2022-01-22 00:31 | NUR ---
Dr. Santoro called and informed patient's HR is 130. No reply from Dr. Santoro.
--- NOTE | 2022-01-22 01:00 | NUR ---
PATIENT TURNED TO LEFT SIDE WITH PILLOW SUPPORT.
--- NOTE | 2022-01-22 01:01 | NUR ---
RT verbally informed patient's oxygen saturation 93% and HR 138. RT tech Norman assessing patient.
--- NOTE | 2022-01-22 01:01 | NUR ---
Dr. Santoro called and informed patient's HR is 138. No reply from Dr. Santoro.
--- NOTE | 2022-01-22 01:07 | NUR ---
PATIENT TURNED TO RIGHT SIDE WITH PILLOW SUPPORT.
--- NOTE | 2022-01-22 01:30 | NUR ---
Dr. Santoro called and informed patient's HR is 130. Dr. Santoro verbalized understanding and ordered EKG. Readback complete. RT informed of stat EKG order. RT verbalized understanding and is performing EKG.
--- NOTE | 2022-01-22 01:44 | NUR ---
EKG performed by RT Austin, patient EKG result sinus tachycardia. EKG sent to Dr. Santoro by RT Austin. RT Austin stated "Patient is starting to contract." RT Austin contacted Dr. Santoro to verbally inform him.
--- NOTE | 2022-01-22 01:49 | NUR ---
SPOKE W/ DR WHITMORE INFORMED HIM PT IS PRESENTING W/ RETRACTIONS WHICH WERE NOT NOTICED EARLIER - OBTAIN ABG AND PLACE ON VENT IF NEEDED AND OK REPLACE TRACH DUE TO BEING CUFFLESS
[2022-01-22] MEDS: ACETAMINOPHEN 325 MG TAB PO PRN ×2 (02:06→18:20)
--- NOTE | 2022-01-22 03:00 | NUR ---
PATIENT TURNED TO LEFT SIDE WITH PILLOW SUPPORT.
--- NOTE | 2022-01-22 03:00 | NUR ---
PATIENT TURNED TO RIGHT SIDE WITH PILLOW SUPPORT. Addendum: 01/22/22 at 0534 by [email or web address] PATIENT TURNED TO LEFT SIDE WITH PILLOW SUPPORT.
--- NOTE | 2022-01-22 04:52 | NUR ---
STUDENT MECHANICAL METER TESTER ASSISTED ED DR W/ EXCHANGING TRACH PT WAS PLACED ON VENT FOR INCREASED WOB W/ RETRACTIONS PRESENT TRACH EXCHANGED W/ SAME SIZE PORTEX 8 DCT (CUFFED) TRACH PT PLACED ON AC VC 500 +5 f12 30% W/ ALARMS ON AND AUDIBLE VENT IS PLUGGED INTO RED OUTLET AMBU IS AT BEDSIDE PT RETRACTIONS ARE NO LONGER PRESENT AT THIS TIME POST TRACH CHANGE AND VENT INITIATION BILAT BS WERE PRESENT SPO2 IS ADEQUATE CXR WAS TAKEN AND PENDING INTERP WILL CONTINUE TO MONITOR
[2022-01-22 05:02] VITALS: BP 120/73
--- NOTE | 2022-01-22 05:34 | NUR ---
PATIENT TURNED TO RIGHT SIDE WITH PILLOW SUPPORT. Addendum: 01/22/22 at 0657 by [email or web address] PATIENT TURNED TO LEFT SIDE WITH PILLOW SUPPORT.
--- NOTE | 2022-01-22 05:40 | NUR ---
RECEIVED TELEPHONE REPORT FROM ED RN LILO. PT A&O0, NON-VERBAL. RESPIRATIONS EVEN AND UNLABORED ON TRACH TO VENT AT 30FIO2. PT ON GRIEVANCE COORDINATOR. PT WITH G-TUBE AND GUALLPA CATHETER IN PLACE. IV SITE AT LEFT ANKLE 20G INFUSING NS AT 60 ML/ HR. SKIN INTACT WITH BLANCHABLE REDNESS ON COCCYX AREA. MRSA SWAB DONE. V/S 104/69, 18, 125, 100.6, 97%. CALL LIGHT WITHIN REACH. SAFETY PRECAUTIONS IN PLACE. WILL CONTINUE TO MONITOR. Addendum: 01/22/22 at 1840 by Darya Fung LVN ERROR.
[2022-01-22 06:24] LABS: BASOPHILS # (AUTO) 0.1 K/uL (0.00-0.22); BASOPHILS % (AUTO) 0.3 % (0.0-2.0); EOSINOPHILS # (AUTO) 0.3 K/uL (0-0.4); EOSINOPHILS % (AUTO) 1.9 % (0.0-4.0); HEMATOCRIT 32.2 % (36-52); HEMOGLOBIN 10.6 g/dL (12.0-18.0); LYMPHOCYTES # (AUTO) 0.6 K/uL (2.0-11.5); LYMPHOCYTES % (AUTO) 3.4 % (20.5-51.1); MEAN CORPUSCULAR HEMOGLOBIN 28 pg (27-31); MEAN CORPUSCULAR HGB CONC 33 g/dL (33-37); MEAN CORPUSCULAR VOLUME 85.6 fL (80-94); MONOCYTES # (AUTO) 1.3 K/uL (0.8-1.0); MONOCYTES % (AUTO) 7.2 % (1.7-9.3); NEUTROPHILS # (AUTO) 15.4 K/uL (1.8-7.7); PLATELET COUNT (AUTO) 306 K/uL (140-450); RED BLOOD CELL COUNT(AUTO) 3.76 MIL/uL (4.20-6.10); RED CELL DISTRIBUTION WIDTH 16.6 % (11.6-13.7); WHITE BLOOD COUNT (AUTO) 17.7 K/uL (4.8-10.8)
[2022-01-22 06:45] LABS: ANION GAP 13.1 (8-16); CHLORIDE 99 mmol/L (98-107); CREATININE 1.2 mg/dL (0.6-1.3); GLUCOSE 164 mg/dL (74-106); POTASSIUM 4.1 mmol/L (3.5-5.1); SODIUM SERUM 135 mmol/L (136-145); UREA NITROGEN, BLOOD 26 mg/dL (7-18)
--- NOTE | 2022-01-22 06:57 | NUR ---
PATIENT TURNED TO RIGHT SIDE WITH PILLOW SUPPORT.
[2022-01-22] MEDS: PIPERACILLIN/TAZOBACTAM 3.375 GM in DEXTROSE 5% 50 ML IV SCH ×2 (07:00→15:12)
[2022-01-22 07:18] LABS: NEUTROPHILS % (AUTO) 87.2 % (42.2-75.2)
[2022-01-22] MEDS ORDERED: PIPERACILLIN/TAZOBACTAM 3.375 GM VIAL IV ONE ×2 (07:38→13:37)
--- NOTE | 2022-01-22 07:40 | NUR ---
Change of shift report given to AM shift nurse Bailey RN. AM shift nurse Bailey RN verbalized understanding of report, no further questions.
--- NOTE | 2022-01-22 08:22 | NUR ---
PATIENT HAS BEEN SCREENED AND CATEGORIZED MODERATE NUTRITION RISK. PATIENT WILL BE SEEN WITHIN 3-5 DAYS OF ADMISSION. 01/22/22-01/25/[address] Addendum: 01/24/22 at [address] FNS CONSULT HAS BEEN RECEIVED FOR WOUNDS. PATIENT HAS BEEN RE-SCREENED HIGH RISK AND WILL BE SEEN WITHIN 1-2 DAYS OF RECEIVING THE FNS CONSULT. VIGNESH [address] RD
--- NOTE | 2022-01-22 10:41 | NUR ---
pt laying supine with feet elevated. no sacral wounds noted, redness with blachable area on buttocks. perineal area cleaned, soft, brown/green bm movement at this time. diaper and linen changed. face and body wiped with aloe wet wipes.
[2022-01-22] MEDS ORDERED: VANCOMYCIN 1GM/DEXT 5% PREMIX 200 ML IV SCH (11:00)
[2022-01-22] MEDS: NACL 0.9% 1,000 ML IV SCH (13:37)
[2022-01-22] MEDS ORDERED: bisacodyL 10 MG SUPP RC SCH (15:40)
--- NOTE | 2022-01-22 16:00 | NUR ---
holding vancomycin dose, no vancomycin trough was drawn this morning, order placed and results pending.
[2022-01-22] MEDS ORDERED: VANCOMYCIN 1,000 MG VIAL ONE ×2 (16:17→18:06)
[2022-01-22 17:40] VITALS: BP 104/69
--- NOTE | 2022-01-22 17:40 | NUR ---
RECEIVED TELEPHONE REPORT FROM ED RN LILO. PT WHEELED OUT BY OCULAR CARE TECHNOLOGIST AND RT FROM ED VIA [employer]. PT A&O0, NON-VERBAL. RESPIRATIONS EVEN AND UNLABORED ON TRACH TO VENT AT 30FIO2. PT ON LEVEL VIAL GRINDER. PT WITH G-TUBE AND GUALLPA CATHETER IN PLACE. IV SITE AT LEFT ANKLE 20G INFUSING NS AT 60 ML/ HR. SKIN INTACT WITH BLANCHABLE REDNESS ON COCCYX AREA. MRSA SWAB DONE. V/S 104/69, 18, 125, 100.6, 97%. CALL LIGHT WITHIN REACH. SAFETY PRECAUTIONS IN PLACE. WILL CONTINUE TO MONITOR.
--- NOTE | 2022-01-22 17:49 | NUR ---
Patient will be admitted to care of Yvan RUIZ. Admitted to Telemetry. Will go to room 110B. Belongings list completed. Report to Darya.
[2022-01-22] MEDS: VANCOMYCIN 1,000 MG in DEXTROSE 5% 250 ML IV SCH (18:12)
--- NOTE | 2022-01-22 18:14 | NUR ---
IV VANCOMYCIN ADMINISTERED BY DENISE CARTER. VANCO THROUGH CHECKED. NON ADMIT VANCO VIAL - DUPLICATE. NO ADVERSE REACTION NOTED. WILL CONTINUE TO MONITOR.
--- NOTE | 2022-01-22 18:20 | NUR ---
ADMINISTERED TYLENOL FOR TEMP 100.6.
--- NOTE | 2022-01-22 19:00 | NUR ---
PHOTOS TAKEN OF BUTTOCKS AND PERINEAL AREA. FILLED ON PT CHART.
--- NOTE | 2022-01-22 19:27 | NUR ---
ENDORSED PT TO DIRECTOR OF BUSINESS APPLICATIONS NURSE FOR CONTINUITY OF CARE. ALL NEEDS MET SINCE ADMISSION. PT IS STABLE.
--- NOTE | 2022-01-22 19:30 | NUR ---
RECEIVED REPORT FROM DAY SHIFT NURSE FOR NEW ADMISSION. PATIENT WAS BROUGHT OVER FROM ER AT 1745. PATIENT IS ON VENTILATOR, A&O X0-1. PATIENT IS NONVERBAL. IV IS A 20G ON LEFT ANKLE RUNNING NS AT 60. PATIENT HAS CATHETER. WILL CONTINUE TO OBSERVE PATIENT.
[2022-01-22 20:00] VITALS: BP 86/55
--- NOTE | 2022-01-22 20:45 | NUR ---
OBTAINED 1999 VITALS. PATIENT'S BP WAS 86/55, NOTIFIED DOCTOR ARTEMIO. PENDING RESPONSE.
[2022-01-22] MEDS: METOPROLOL 25 MG TAB PO SCH (21:00)
[2022-01-22] MEDS ORDERED: DOCUSATE SODIUM 100 MG GELCAP PO SCH (21:00)
[2022-01-22] MEDS ORDERED: NACL 0.9% 1,000 ML IV ONE ×2 (21:50)
[2022-01-22] MEDS: ATORVASTATIN 80 MG TAB GT SCH (22:24)
[2022-01-22] MEDS: MAGNESIUM HYDROXIDE 2400 MG/30 ML UDC GT SCH (22:24)
[2022-01-22] MEDS: DOCUSATE 100 MG/10 ML UDC GT SCH (23:05)
--- NOTE | 2022-01-22 23:15 | NUR ---
DR. ULLOA ORDERED 2L BOLUS. FIRST BOLUS STARTED AT 2300. 2100 MEDS HAD BEEN GIVEN. PATIENT TOLERATED MEDICATIONS WELL. BED IS IN LOWEST POSITION, WHEELS LOCKED, CALL LIGHT IN PLACE. WILL CONTINUE TO OBSERVE.
--- NOTE | 2022-01-22 23:15 | NUR ---
METOPROLOL WAS HELD DUE TO PATIENT'S BP BEING SO LOW (86/55). WILL CONTINUE TO OBSERVE PATIENT.
[2022-01-23] VITALS (10 sets, daily range): BP systolic 101–178; BP diastolic 64–75
--- NOTE | 2022-01-23 | NUR ---
STARTED SECOND BOLUS OF NS. WILL CONTINUE TO OBSERVE.
--- NOTE | 2022-01-23 00:30 | NUR ---
0000 VITALS TAKEN. VITALS WERE: TEMP 98.9, HR 121, BP 132/75, O2 95, RR 18. BOLUS INTERVENTION HAS BEEN EFFECTIVE. BP IS NOW IN NORMAL RANGE. WILL CONTINUE TO OBSERVE PATIENT.
[2022-01-23] MEDS ORDERED: PIPERACILLIN/TAZOBACTAM 3.375 GM VIAL IV ONE ×2 (01:05→06:51)
[2022-01-23] MEDS: PIPERACILLIN/TAZOBACTAM 3.375 GM in DEXTROSE 5% 50 ML IV SCH ×4 (01:11→22:22)
--- NOTE | 2022-01-23 01:20 | NUR ---
IVPB ZOSYN WAS GIVEN AFTER SECOND BOLUS FINISHED.
[2022-01-23] MEDS: ACETAMINOPHEN 325 MG TAB PO PRN (01:53)
--- NOTE | 2022-01-23 02:00 | NUR ---
PATIENT SPIKED A FEVER OF 100.9. TYLENOL WAS GIVEN VIA G-TUBE AND COLD PACKS WERE APPLIED TO PATIENT'S SKIN. WILL CONTINUE TO OBSERVE PATIENT.
--- NOTE | 2022-01-23 03:00 | NUR ---
PATIENT'S TEMPERATURE IS DOWN TO 96.6. INTERVENTIONS WERE EFFECTIVE. WILL CONTINUE TO OBSERVE PATIENT.
--- NOTE | 2022-01-23 04:30 | NUR ---
0400 VITALS WERE: TEMP 96.6, HR 115, BP 101/66, O2 96, RR 18. PATIENT'S TEMP AND BP ARE STILL STABLE. WILL CONTINUE TO OBSERVE.
--- NOTE | 2022-01-23 05:30 | NUR ---
EMPTIED 800 ML OF URINE FROM CATHETER. WILL CONTINUE TO OBSERVE PATIENT.
[2022-01-23] MEDS: NACL 0.9% 1,000 ML IV SCH ×2 (05:35→22:25)
--- NOTE | 2022-01-23 07:30 | NUR ---
RECEIVED BEDSIDE REPORT FROM CORE FEEDER NURSE FOR CONTINUOUS OF CARE, PT RESTING, AAOX1, APHASIC, TRACH TO VENT, FIO2 24%, RATE 12 TV 500 PEEP 5 SATURATING @ 97%, NO SOB NOTED. IV TO LEFT LEG 20G PATENT INTACT, INFUSING WELL. GT TUBE IN PLACE, 30ML RESIDUAL NOTED. GUALLPA CATH IN PLACE DRAINING TO GRAVITY. INITIAL ASSESSMENT DONE, ALL SAFETY PRECAUTION MET, CALL LIGHT WITHIN REACH, WILL CONTINUE TO MONITOR.
--- NOTE | 2022-01-23 07:30 | NUR ---
ENDORSED CONTINUITY OF CARE TO DAY SHIFT. PATIENT IS STABLE.
[2022-01-23 08:35] LABS: ANION GAP 11.4 (8-16); CARBON DIOXIDE 26.5 mmol/L (21-32); CHLORIDE 105 mmol/L (98-107); CREATININE 1.2 mg/dL (0.6-1.3); GLUCOSE 155 mg/dL (74-106); POTASSIUM 3.9 mmol/L (3.5-5.1); SODIUM SERUM 139 mmol/L (136-145); UREA NITROGEN, BLOOD 20 mg/dL (7-18)
--- NOTE | 2022-01-23 08:42 | NUR ---
RECEIVED ON A WetradetogetherSCAPE R860 VENTILATOR PLUGGED INTO RE OUTLET TOLERATING WELL WITHOUT ADVERSE REACTIONS NOTED TO A PORTEX DCT #8 AIRWAY SECURED WITH A RADHIKA TRACH TIE CUFF PRESSURE CHECKED NOTED AMBU BAG AT BEDSIDE LOC AWAKE STABLE EQUAL CHEST RISE DEEP TRACHEAL SUCTION FOR MODERATE SEMI THICK PALE YELLOW SECRETIONS AIRWAY PATENT
[2022-01-23 08:53] LABS: BASOPHILS % (AUTO) 0.2 % (0.0-2.0); EOSINOPHILS # (AUTO) 0.7 K/uL (0-0.4); EOSINOPHILS % (AUTO) 8.1 % (0.0-4.0); HEMATOCRIT 42.9 % (36-52); HEMOGLOBIN 13.9 g/dL (12.0-18.0); LYMPHOCYTES # (AUTO) 0.7 K/uL (2.0-11.5); LYMPHOCYTES % (AUTO) 8.4 % (20.5-51.1); MEAN CORPUSCULAR HEMOGLOBIN 28 pg (27-31); MEAN CORPUSCULAR HGB CONC 32 g/dL (33-37); MEAN CORPUSCULAR VOLUME 86.9 fL (80-94); MONOCYTES # (AUTO) 0.7 K/uL (0.8-1.0); MONOCYTES % (AUTO) 8.3 % (1.7-9.3); NEUTROPHILS # (AUTO) 6.3 K/uL (1.8-7.7); RED BLOOD CELL COUNT(AUTO) 4.94 MIL/uL (4.20-6.10); WHITE BLOOD COUNT (AUTO) 8.4 K/uL (4.8-10.8)
[2022-01-23] MEDS ORDERED: FERROUS SULFATE 325 MG TABEC PO SCH (09:00)
[2022-01-23] MEDS: FAMOTIDINE 20 MG TAB GT SCH (09:24)
[2022-01-23] MEDS: ASPIRIN 81 MG TAB.CHEW GT SCH (09:24)
[2022-01-23] MEDS: DOCUSATE 100 MG/10 ML UDC GT SCH ×2 (09:24→22:05)
[2022-01-23] MEDS: lisinopriL 20 MG TAB GT SCH (09:24)
[2022-01-23] MEDS: METOPROLOL 25 MG TAB PO SCH ×2 (09:25→22:07)
[2022-01-23] MEDS: VANCOMYCIN 1,000 MG in DEXTROSE 5% 250 ML IV SCH (09:25)
--- NOTE | 2022-01-23 09:26 | NUR ---
DUE MEDICATION ADMINISTERED, PT TOLERATED WELL, NO DISTRESS NOTED, WILL CONTINUE TO MONITOR.
[2022-01-23] MEDS ORDERED: Z-GUARD PASTE TP ONE (09:52)
[2022-01-23 10:01] LABS: PLATELET COUNT (AUTO) 153 K/uL (140-450)
--- NOTE | 2022-01-23 11:02 | NUR ---
WOUND CARE EVALUATION NOTE: SKIN ASSESSMENT DONE WITH PRIMARY RN ON 76 Y/O MALE WITH ELEVATED WBC. 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 PT. TRACH AND GT, MASSIEL STOMA SKIN DRY AND CLEAN, TRACE EDEMA TO HANDS AND FEET. PT. ADMITTED WITH DRY PEELING SKIN TO RIGHT AND LEFT PALMS FISSURE LIKED CRACK DRY THICKEN SKIN, NO OPEN WOUND. PT. ADMITTED WITH MODERATE MOISTURE ASSOCIATED DERMATITIS TO LEFT BUTTOCK MULTIPLE SUPERFICIAL EROSIONS, AND OLD HEALED SCAR TISSUE TO SACRALCOCCYX. PT WITH LOW JONO SCALE AT HIGH RISK,LOOSE BM X1 DURING ASSESSMENT. POC DISCUSSED WITH PRIMARY RN MAY APPLY FLEXSEAL IF MORE FREQUENCY OF LBM NOTICE. RECOMMENDATIONS -CLEANSE RIGHT AND LEFT PALMS WITH MILD SOAP AND WATER, PAT COMPLETE DRY, APPLY SKIN MOISTURIZER DAILY AND KEY PERSON -CLEANSE GROINS, BUTTOCKS AND SACRALCOCCYX WITH MILD SOAP AND WATER, PAT DRY APPLY Z GUARD BID AND PRN IF SOILING -MAY APPLY FOAM DRESSING TO SACRALCOCCYX OLD HEALED SCAR TISSUE PREVENTION -APPLY SKIN PREP.TO BILATERAL HEEL BID AND KEY PERSON -POSITIONING: TURN AND REPOSITION PATIENT Q 2H OR SOONER USE PILLOWS TO KEEP BONY PROMINENCES FROM DIRECT CONTACT WITH SURFACES USE REPOSITIONING WEDGES TO PROVIDE 30-DEGREE ANGLE FOR SIDE LYING POSITIONS OFFLOADING OR FOAM DRESSING TO ALL TUBING TO PREVENT MEDICAL DEVICES RELATED PRESSURE INJURY -RE-EVALUATING AND MANAGING INCONTINENCE MONITOR SKIN CONDITION DURING POSITION CHANGE DO NOT MASSAGE REDNESS, BONY PROMINENCES FREQUENT MASSIEL-CARE AND PROVIDE BARRIER CREAMS PRN IF SOILING MOISTURE CONTROL BY OFFER BED WINN/URINAL /ABSORBENT PAD TO WICK AND HOLD MOISTURE KEEP SKIN DRY AND PROTECT FROM FRICTION -MANAGE FRICTION/SHEAR/MOBILITY KEEP HOB AT THE LOWEST LEVEL OF ELEVATION NO MORE THAN 30-DEGREE UNLESS OTHERWISE CONTRAINDICATED USE LIFT SHEET OR TRANSFER DEVICE TO MOVE PATIENT AND PREVENT LATERAL SHEER. PROTECT HEELS, ELBOWS BONY PROMINENCES WITH SKIN BERRIES OR FOAM DRESSING IF EXPOSED TO FRICTION OFFLOAD BILATERAL HEELS BY PLACING PILLOWS UNDER CALVES AT ALL TIMES, UNLESS OTHERWISE CONTRAINDICATED -PRESSURE REDISTRIBUTION SURFACE THERAPY LITA ISOFLEX MATTRESS -NUTRITION: PLEASE FOLLOW RD RECOMMENDATIONS AND OFFER NUTRITION SUPPLEMENTS IF ORDERED.
[2022-01-23] MEDS ORDERED: FOAM DRESSING TP PRN (11:05)
--- NOTE | 2022-01-23 11:48 | NUR ---
RESTING WELL GOOD CHEST RISE DEEP TRACHEAL SUCTION FOR MODERATE SEMI THICK PALE YELLOW SECRETINS AIRWAY PATENT
[2022-01-23] MEDS ORDERED: bisacodyL 10 MG SUPP RC PRN (12:34)
[2022-01-23] MEDS: Z-GUARD PASTE TP SCH (12:49)
--- NOTE | 2022-01-23 13:00 | NUR ---
WOUND CARE DONE, PT TOLERATED WELL, NO DISTRESS NOTED, PICTURES TAKEN, WILL CONTINUE TO MONITOR.
--- NOTE | 2022-01-23 13:53 | NUR ---
NO EVIDENCE OF PULMONARY DISTRESS NOTED GOOD CHEST RISE DEEP TRACHEAL SUCTION FOR MODERATE THIN YELLOW SECRETIONS AIRWAY PATENT
--- NOTE | 2022-01-23 18:15 | NUR ---
SPOKE TO DR ULLOA REGARDING PT NPO STATUS, PER DR TO ORDER GT FEEDING, WILL FOLLOW GT FEEDING ORDER FROM [facility] AND PUT IN ORDERS.
[2022-01-23] MEDS ORDERED: DEXTROSE 50% 50 ML SYR IVP PRN (19:20)
--- NOTE | 2022-01-23 19:26 | NUR ---
ENDORSED PT TO SALES ENABLEMENT MANAGER NURSE FOR CONTINUOUS OF CARE.
[2022-01-23] MEDS: BLOOD GLUCOSE MONITORING 1 DEV DEV FS SCH (21:00)
--- NOTE | 2022-01-23 21:00 | NUR ---
BLOOD SUGAR = 110, NO SLIDING SCALE COVERAGE
[2022-01-23] MEDS: ATORVASTATIN 80 MG TAB GT SCH (22:06)
[2022-01-23] MEDS: MAGNESIUM HYDROXIDE 2400 MG/30 ML UDC GT SCH (22:06)
[2022-01-24] VITALS (9 sets, daily range): BP systolic 124–149; BP diastolic 55–82
[2022-01-24] MEDS: Z-GUARD PASTE TP SCH ×2 (01:50→13:06)
[2022-01-24] MEDS: VANCOMYCIN 1,000 MG in DEXTROSE 5% 250 ML IV SCH ×2 (04:04→22:17)
[2022-01-24] MEDS: PIPERACILLIN/TAZOBACTAM 3.375 GM in DEXTROSE 5% 50 ML IV SCH ×3 (05:44→22:12)
--- NOTE | 2022-01-24 06:45 | NUR ---
BLOOD SUGAR CHECKED = 125 - NO SLIDING SCALE COVERAGE.
[2022-01-24 06:50] LABS: BASOPHILS % (AUTO) 0.3 % (0.0-2.0); EOSINOPHILS # (AUTO) 0.9 K/uL (0-0.4); EOSINOPHILS % (AUTO) 16.1 % (0.0-4.0); HEMATOCRIT 25.2 % (36-52); HEMOGLOBIN 8.5 g/dL (12.0-18.0); LYMPHOCYTES # (AUTO) 0.9 K/uL (2.0-11.5); LYMPHOCYTES % (AUTO) 16.7 % (20.5-51.1); MEAN CORPUSCULAR HEMOGLOBIN 29 pg (27-31); MEAN CORPUSCULAR HGB CONC 34 g/dL (33-37); MEAN CORPUSCULAR VOLUME 85.6 fL (80-94); MONOCYTES # (AUTO) 0.7 K/uL (0.8-1.0); MONOCYTES % (AUTO) 13.4 % (1.7-9.3); NEUTROPHILS % (AUTO) 53.5 % (42.2-75.2); PLATELET COUNT (AUTO) 246 K/uL (140-450); RED BLOOD CELL COUNT(AUTO) 2.95 MIL/uL (4.20-6.10); RED CELL DISTRIBUTION WIDTH 16.7 % (11.6-13.7); WHITE BLOOD COUNT (AUTO) 5.5 K/uL (4.8-10.8)
[2022-01-24] MEDS: BLOOD GLUCOSE MONITORING 1 DEV DEV FS SCH ×4 (06:51→20:24)
[2022-01-24 06:59] LABS: ANION GAP 9.5 (8-16); CARBON DIOXIDE 25.8 mmol/L (21-32); CHLORIDE 106 mmol/L (98-107); CREATININE 1.1 mg/dL (0.6-1.3); GLUCOSE 142 mg/dL (74-106); POTASSIUM 3.3 mmol/L (3.5-5.1); SODIUM SERUM 138 mmol/L (136-145); UREA NITROGEN, BLOOD 15 mg/dL (7-18)
--- NOTE | 2022-01-24 07:30 | NUR ---
PT IS ON STABLE CONDITION, NO SOB OR DISTRESS. ALL SAFETY MEASURES ARE IN PLACE. ENDORSED TO DAY SHIFT NURSE FOR CONTINUITY OF CARE.
--- NOTE | 2022-01-24 07:35 | NUR ---
RECEIVED PT FROM NIGHT RN, PT IS ON A TRACH TO VENT AT FIO2 AT 24%, VT AT 500, PEEP AT 5, RATE AT 12 AND FLOW AT 40L/MIN, PT HAS A GUALLPA CATHETER IN PLACE, DRAINING, PT IS APHASIC, BUT AROUSABLE, G-TUBE IN PLACE ON CONTINUOUS FEEDING OF GLUCERNA 1.2 AT 75ML/HR WITH WATER FLUSHING OF 225ML/HR Q4H, NO SIGN OF DISTRESS NOTED AND PT IS SATURATING AT 96%. WILL CONTINUE TO MONITOR PT.
[2022-01-24] MEDS: FERROUS SULFATE 300 MG/5 ML UDC GT SCH (08:27)
[2022-01-24] MEDS: DOCUSATE 100 MG/10 ML UDC GT SCH ×2 (08:27→20:26)
[2022-01-24] MEDS: lisinopriL 20 MG TAB GT SCH (08:28)
[2022-01-24] MEDS: ASPIRIN 81 MG TAB.CHEW GT SCH (08:28)
[2022-01-24] MEDS: FAMOTIDINE 20 MG TAB GT SCH (08:28)
--- NOTE | 2022-01-24 08:28 | NUR ---
PT WAS GIVEN THE SCHEDULED AM MEDICATIONS, BOP I S140/72,E IS 76 MANUALLY CHECKED,
[2022-01-24] MEDS: METOPROLOL 25 MG TAB PO SCH ×2 (08:29→20:27)
--- NOTE | 2022-01-24 13:10 | NUR ---
PT WAS CLEANED AND REPOSITIONED NOW, Z-GUARD WAS APPLIED.
--- NOTE | 2022-01-24 14:20 | NUR ---
01/24/22 RD INITIAL ASSESSMENT COMPLETED PLEASE REFER TO NUTRITION ASSESSMENT UNDER CARE ACTIVITY FOR ESTIMATED NUTRITIONAL NEEDS. 1. CONTINUE GLUCERNA 1.2 @ 10 ML/HR INCREASE 10 ML Q4H. GOAL 70 ML/HR. FWF 225 ML Q4H TOLERATED 2. RD RECOMMENS PROSOURCE 1X/DAY FOR WOUND HEALING. 3. RD WILL MONITOR NUTRITION RELATED LAB VALUES. 4. RD TO FOLLOW-UP 3-5 DAYS, MODERATE RISK REVIEWED BY CODI FAIRBANKS RD
[2022-01-24] MEDS: NACL 0.9% 1,000 ML IV SCH (14:55)
[2022-01-24] MEDS ORDERED: POTASSIUM CHLORIDE 20% 40 MEQ/15 ML UDC PO PRN (15:30)
--- NOTE | 2022-01-24 16:26 | NUR ---
DC PLANNING: THE PATIENT ADMITTED FROM [facility] [place] WITH CHRONIC TRACH/PEG, C/O BLOOD COMING FROM HIS T BAR AND ELEVATED WBC'S. H/O CVA WITH RIGHT HEMIPLEGIA, DM, HT, CKD. WBC'S 18.6, BNP 110, UA POSITIVE. GIVEN ROCEPHIN, IVF'S, TYLENOL AND COUGH SYRUP IN ED. ORDER FOR PULMONOLOGY CONSULT, CXR SHOWS OPACITIES, ATELECTASIS AND SMALL LEFT PLEURAL EFFUSION. CONTINUED ON VANCO AND ZOSYN IV, IVF'S. CM SPOKE WITH THE PATIENTS SON AYSE ([phone]) AFTER TRYING TO REACH TONYA, CONFIRMED THAT HE WILL UPDATE HIS BROTHERS ON DISCUSSION WITH CM. AYSE STATES THAT FAMILY AGREES WITH THE PATIENT RETURNING TO [facility] [place] WHEN HE'S CLINICALLY STABLE. CM WILL FOLLOW. Addendum: 01/26/22 at 1203 by Page Sorensen CM DC PLANNING: PATIENT WITH CONTINUED MANAGEMENT FOR PNA AND UTI. URINE CULTURES REORDERED BY MYLES RUIZ TO VALIDATE INITIAL RESULTS OF MDRO. PATIENT TO REMAIN ON VENT PER RT. PATIENT TO RETURN TO [facility] WHEN CLINICALLY STABLE. CM WILL FOLLOW.
--- NOTE | 2022-01-24 16:32 | NUR ---
BLOOD GLUCOSE CHECK WAS DONE NOW AND RESULT IS 140.
--- NOTE | 2022-01-24 19:15 | NUR ---
ENDORSED PT TO NIGHT RN, FOR CONTINUITY OF CARE, PT IS STABLE AT THIS TIME.
--- NOTE | 2022-01-24 19:16 | NUR ---
RECEIVED PT FROM DAY RN, PT IS ON A TRACH TO VENT AT FIO2 AT 24%, VT AT 500, PEEP AT 5, RATE AT 12 AND FLOW AT 40L/MIN, PT HAS A GUALLPA CATHETER IN PLACE, DRAINING, PT IS APHASIC, BUT AROUSABLE, MITTEN ON LEFT HAND.G-TUBE IN PLACE ON CONTINUOUS FEEDING OF GLUCERNA 1.2 AT 75ML/HR WITH WATER FLUSHING OF 225ML/HR Q4H, NO SIGN OF DISTRESS NOTED AND PT IS SATURATING AT 97%. ALL PRECAUTIONS IN PLACE.WILL CONTINUE TO MONITOR PT.
[2022-01-24] MEDS: MAGNESIUM HYDROXIDE 2400 MG/30 ML UDC GT SCH (20:26)
[2022-01-24] MEDS: ATORVASTATIN 80 MG TAB GT SCH (20:27)
--- NOTE | 2022-01-24 21:00 | NUR ---
SCHEDULED MEDICATIONS GIVEN. NO RESIDUALS NOTED ON G TUBE. ALL PRECAUTIONS IN PLACE. WILL CONTINUE TO MONITOR.
--- NOTE | 2022-01-24 21:30 | NUR ---
RECEIVED CRITICAL LAB VANCO TROUGH 15.7. PER PHARMACY PROTOCOL, HOLD IF TROUGH IS MORE THAN 20.
--- NOTE | 2022-01-24 22:00 | NUR ---
SCHEDULED ANTIBIOTICS GIVEN. PT TOLERATED WELL. WILL CONTINUE TO MONITOR.
[2022-01-25] VITALS: BP 132/74
--- NOTE | 2022-01-25 00:10 | NUR ---
PT ASLEEP. VISIBLE CHEST RISE AND FALL NOTED. ALL PRECAUTIONS IN PLACE. WILL CONTINUE TO MONITOR.
[2022-01-25] MEDS: Z-GUARD PASTE TP SCH ×2 (01:37→12:33)
--- NOTE | 2022-01-25 02:30 | NUR ---
PT HAD A BOWEL MOVEMENT. CLEANED AND CHANGED AND REPOSITIONED. PT TOLERATED WELL. WILL CONTINUE TO MONITOR.
[2022-01-25 04:00] VITALS: BP 165/87
--- NOTE | 2022-01-25 04:33 | NUR ---
PT ASLEEP.VISIBLE CHEST RISE AND FALL NOTED.NO DISTRESS NOTED. ALL PRECAUTIONS IN PLACE. WILL CONTINUE TO MONITOR.
[2022-01-25] MEDS: PIPERACILLIN/TAZOBACTAM 3.375 GM in DEXTROSE 5% 50 ML IV SCH (06:00)
[2022-01-25] MEDS: BLOOD GLUCOSE MONITORING 1 DEV DEV FS SCH ×4 (06:36→20:39)
--- NOTE | 2022-01-25 06:43 | NUR ---
PT IS STABLE. NO ACUTE THROUGHOUT THE NIGHT. NO S/SX OF DISTRESS. ALL NEEDS ATTENDED. NO COMPLAINS OF PAIN AT THIS MOMENT. ALL PRECAUTIONS IN PLACE. CALL LIGHT WITHIN REACH. WILL ENDORSE TO AM SHIFT NURSE.
[2022-01-25 07:10] LABS: BASOPHILS % (AUTO) 0.2 % (0.0-2.0); EOSINOPHILS % (AUTO) 16.1 % (0.0-4.0); HEMATOCRIT 25.5 % (36-52); HEMOGLOBIN 8.6 g/dL (12.0-18.0); LYMPHOCYTES % (AUTO) 17.2 % (20.5-51.1); MEAN CORPUSCULAR HEMOGLOBIN 29 pg (27-31); MEAN CORPUSCULAR HGB CONC 34 g/dL (33-37); MEAN CORPUSCULAR VOLUME 85.5 fL (80-94); MONOCYTES # (AUTO) 0.7 K/uL (0.8-1.0); MONOCYTES % (AUTO) 11.6 % (1.7-9.3); NEUTROPHILS # (AUTO) 3.3 K/uL (1.8-7.7); NEUTROPHILS % (AUTO) 54.9 % (42.2-75.2); PLATELET COUNT (AUTO) 238 K/uL (140-450); RED BLOOD CELL COUNT(AUTO) 2.98 MIL/uL (4.20-6.10); RED CELL DISTRIBUTION WIDTH 16.4 % (11.6-13.7); WHITE BLOOD COUNT (AUTO) 6.1 K/uL (4.8-10.8)
[2022-01-25 07:26] LABS: ANION GAP 9.9 (8-16); CARBON DIOXIDE 24.8 mmol/L (21-32); CHLORIDE 107 mmol/L (98-107); GLUCOSE 147 mg/dL (74-106); POTASSIUM 3.7 mmol/L (3.5-5.1); SODIUM SERUM 138 mmol/L (136-145); UREA NITROGEN, BLOOD 11 mg/dL (7-18)
[2022-01-25] MEDS: NACL 0.9% 1,000 ML IV SCH ×2 (07:35→19:27)
--- NOTE | 2022-01-25 07:36 | NUR ---
RECEIVED REPORT FROM FMD TEACHER NURSE FOR CONTINUITY OF CARE. PATIENT LYING DOWN IN BED, ON TRACH TO VENT. NO DISTRESS NOTED. VENT SETTINGS: FIO2: 24%, VT:500, RATE:12, PEEP:5. IV SITE INTACT, PATENT, AND INFUSING IVF PER MD ORDERS. GUALLPA CATHETER IN PLACE, GTUBE IN PLACE, RUNNING CONTINUOS FEEDING PER MD ORDERS. REVIEWED PLAN OF CARE WITH PATIENT. APHASIC, UNABLE TO COMPREHEND. SAFETY MEASURES IN PLACE, CALL LIGHT WITHIN REACH. WILL CONTINUE TO MONITOR.
[2022-01-25 08:00] VITALS: BP 144/83
--- NOTE | 2022-01-25 08:20 | NUR ---
RECEIVED ON A [place] R860 VENTILATOR PLUGGED INTO RED OUTLET TOLERATING WELL WITHOUT COMPLICATIONS NOTED TO A PORTEX DCT #8 AIRWAY SECURED WITH A RADHIKA TRACH CUFF PRESSURE CHECKED NOTED AMBU BAG AT BEDSIDE RESTING WELL NO EVIDENCE OF PULMONARY DISTRESS NOTED EQUAL CHEST RISE DEEP TRACHEAL SUCTION FOR SMALL THIN YELLOW SECRETIONS AIRWAY PATENT
[2022-01-25] MEDS: DOCUSATE 100 MG/10 ML UDC GT SCH ×2 (09:03→20:28)
[2022-01-25] MEDS: FERROUS SULFATE 300 MG/5 ML UDC GT SCH (09:03)
[2022-01-25] MEDS: METOPROLOL 25 MG TAB PO SCH ×2 (09:04→20:29)
[2022-01-25] MEDS: lisinopriL 20 MG TAB GT SCH (09:04)
[2022-01-25] MEDS: ASPIRIN 81 MG TAB.CHEW GT SCH (09:04)
[2022-01-25] MEDS: FAMOTIDINE 20 MG TAB GT SCH (09:04)
--- NOTE | 2022-01-25 09:15 | NUR ---
REVIEWED WITH DR. HIRAM TIRADO PATIENT HISTORY, CXR IMPRESSION, PULMONARY AND OXYGEN STATUS TYRESE WARD MD: HHN THERAPY Q4 PRN FOR SOB/WZ
[2022-01-25 12:00] VITALS: BP 143/78
--- NOTE | 2022-01-25 12:49 | NUR ---
SCHEDULED MEDICATIONS DUE GIVEN. WILL CONTINUE TO MONITOR.
[2022-01-25 16:00] VITALS: BP 129/68
[2022-01-25] MEDS: VANCOMYCIN 1,000 MG in DEXTROSE 5% 250 ML IV SCH (16:17)
--- NOTE | 2022-01-25 16:18 | NUR ---
SCHEDULED MEDICATIONS DUE GIVEN. WILL CONTINUE TO MONITOR.
[2022-01-25] MEDS: INSULIN LISPRO SLIDING SCALE 100 UNITS/ML VIAL SUBQ PRN (17:27)
--- NOTE | 2022-01-25 17:28 | NUR ---
SCHEDULED MEDICATIONS DUE GIVEN. WILL CONTINUE TO MONITOR.
--- NOTE | 2022-01-25 19:29 | NUR ---
GAVE REPORT TO DATA PROCESSING AUDITOR NURSE FOR CONTINUITY OF CARE. PATIENT IN STABLE CONDITION.
--- NOTE | 2022-01-25 19:30 | NUR ---
RECEIVED PT FROM DAY RN FOR CONTINUITY OF CARE.PT APHASIC, PT IS ON A TRACH TO VENT AT FIO2 AT 24%, VT AT 500, PEEP AT 5, RATE AT 12 AND FLOW AT 40L/MIN, PT HAS A GUALLPA CATHETER IN PLACE, DRAINING, PT IS APHASIC, BUT AROUSABLE, MITTEN ON LEFT HAND.G-TUBE IN PLACE ON CONTINUOUS FEEDING OF GLUCERNA 1.2 AT 70ML/HR WITH WATER FLUSHING OF 225ML/HR Q4H, NO SIGN OF DISTRESS NOTED AND PT IS SATURATING AT 96%. ALL PRECAUTIONS IN PLACE.WILL CONTINUE TO MONITOR PT.
[2022-01-25 19:59] LABS: APPEARANCE,URINE CLEAR (CLEAR); BILIRUBIN,URINE NEGATIVE (NEGATIVE); BLOOD, URINE 2+ (NEGATIVE); COLOR,URINE YELLOW (YELLOW); LEUKOCYTE ESTERASE ,URINE 2+ (NEGATIVE); NITRITE, URINE NEGATIVE (NEGATIVE); PH,URINE 7.5 (5.0-9.0); UGLUCOSE NEGATIVE (NEGATIVE)
[2022-01-25 20:00] VITALS: BP 128/72
[2022-01-25 20:12] LABS: OTHER CASTS, URINE None Seen /LPF (None Seen); RBC,URINE 11-20 (MOD) /HPF (0-5)
[2022-01-25] MEDS: ATORVASTATIN 80 MG TAB GT SCH (20:28)
[2022-01-25] MEDS: MAGNESIUM HYDROXIDE 2400 MG/30 ML UDC GT SCH (20:28)
--- NOTE | 2022-01-25 21:00 | NUR ---
SCHEDULED ANTIBIOTICS GIVEN. PT TOLERATED WELL. WILL CONTINUE TO MONITOR. BLOOD SUGAR WAS 108. NO INSULIN COVERAGE NEEDED.
--- NOTE | 2022-01-25 23:46 | NUR ---
PT ASLEEP.VISIBLE CHEST RISE AND FALL NOTED.NO DISTRESS NOTED. ALL PRECAUTIONS IN PLACE. WILL CONTINUE TO MONITOR.
[2022-01-26] VITALS (7 sets, daily range): BP systolic 129–165; BP diastolic 69–87
--- NOTE | 2022-01-26 01:00 | NUR ---
PT HAD A BOWEL MOVEMENT. CLEANED AND CHANGED AND REPOSITIONED.Z GUARD APPLIED. PT TOLERATED WELL. WILL CONTINUE TO MONITOR.
[2022-01-26] MEDS: Z-GUARD PASTE TP SCH ×2 (01:16→11:35)
--- NOTE | 2022-01-26 02:03 | NUR ---
PT ASLEEP.VISIBLE CHEST RISE AND FALL NOTED.NO DISTRESS NOTED. ALL PRECAUTIONS IN PLACE. WILL CONTINUE TO MONITOR.
--- NOTE | 2022-01-26 05:13 | NUR ---
PT WAS CLEANED AND REPOSITIONED. PT TOLERATED WELL. WILL CONTINUE TO MONITOR.
[2022-01-26] MEDS: BLOOD GLUCOSE MONITORING 1 DEV DEV FS SCH ×4 (06:48→21:00)
[2022-01-26 07:11] LABS: BASOPHILS % (AUTO) 0.2 % (0.0-2.0); EOSINOPHILS # (AUTO) 1.1 K/uL (0-0.4); EOSINOPHILS % (AUTO) 15.7 % (0.0-4.0); HEMATOCRIT 25.8 % (36-52); HEMOGLOBIN 8.5 g/dL (12.0-18.0); LYMPHOCYTES # (AUTO) 1.3 K/uL (2.0-11.5); LYMPHOCYTES % (AUTO) 18.9 % (20.5-51.1); MEAN CORPUSCULAR HEMOGLOBIN 28 pg (27-31); MEAN CORPUSCULAR HGB CONC 33 g/dL (33-37); MEAN CORPUSCULAR VOLUME 85.9 fL (80-94); MONOCYTES # (AUTO) 0.7 K/uL (0.8-1.0); MONOCYTES % (AUTO) 10.6 % (1.7-9.3); NEUTROPHILS # (AUTO) 3.7 K/uL (1.8-7.7); NEUTROPHILS % (AUTO) 54.6 % (42.2-75.2); PLATELET COUNT (AUTO) 254 K/uL (140-450); RED CELL DISTRIBUTION WIDTH 16.7 % (11.6-13.7); WHITE BLOOD COUNT (AUTO) 6.8 K/uL (4.8-10.8)
[2022-01-26 07:19] LABS: CARBON DIOXIDE 24.5 mmol/L (21-32); CHLORIDE 107 mmol/L (98-107); GLUCOSE 128 mg/dL (74-106); POTASSIUM 3.5 mmol/L (3.5-5.1); SODIUM SERUM 140 mmol/L (136-145); UREA NITROGEN, BLOOD 10 mg/dL (7-18)
--- NOTE | 2022-01-26 07:30 | NUR ---
RECEIVED REPORT FROM NIGHTSCAFT NURSE. PT AWAKE & ALERT. APHASIC. TRACH TO VENT WITH FIO2 @ 24%, R 12, FLOW 40L, TV 500, PEEP 5. HOB ELEVATED. HIGH PRESSURE ALERTED. PT SUCTIONED. O2 SATURATION 2 96%. PT TOLERATED WELL, RESTING COMFORTABLY. GT FEEDING INFUSING. 0ML RESIDUAL. PT TOLERATING FEEDING WELL. GLUCERNA 1/2 @ 70 ML/HR WITH WATER FLUSH 225 ML Q.4HR. SOFT MITTENS ON L HAND. GUALLPA VIA GRAVITY. NEEDS ALL MET AT THIS TIME. SAFETY MEASURES IN PLACE.
--- NOTE | 2022-01-26 07:41 | NUR ---
RECEIVED ON A [employer]APE R860 VENTILATOR PLUGGED INTO RED OUTLET TOLERATING WELL WITHOUT COMPLICATIONS NOTED TO A PORTEX DCT #8 AIRWAY SECURED WITH A RADHIKA TRACH TIE CUFF PRESSURE CHECKED NOTED AMBU BAG NOTED AT BEDSIDE RESTING COMFORTABLY GOOD CHEST AIRWAY PATENT
[2022-01-26] MEDS: DOCUSATE 100 MG/10 ML UDC GT SCH ×2 (08:48→21:23)
[2022-01-26] MEDS: METOPROLOL 25 MG TAB PO SCH ×2 (08:49→21:23)
[2022-01-26] MEDS: lisinopriL 20 MG TAB GT SCH (08:49)
[2022-01-26] MEDS: ASPIRIN 81 MG TAB.CHEW GT SCH (08:49)
[2022-01-26] MEDS: FAMOTIDINE 20 MG TAB GT SCH (08:49)
[2022-01-26] MEDS: FERROUS SULFATE 300 MG/5 ML UDC GT SCH (08:50)
[2022-01-26] MEDS ORDERED: FOAM DRESSING TP SCH (09:00)
[2022-01-26] MEDS: VANCOMYCIN 1,000 MG in DEXTROSE 5% 250 ML IV SCH (09:47)
--- NOTE | 2022-01-26 11:06 | NUR ---
PT WITH BM. ASSISTED HUMAN SERVICES CASE MANAGER WITH PT HYGIENIC CARE, LINEN CHANGE, AND REPOSITIONED. ZGUARD APPLIED TO PERINEAL AREA. PT TOLERATED WELL. HOB ELEVATED. O2 SATURATION @ 96%. NEEDS ALL MET. SAFETY MEASURES IN PLACE.
[2022-01-26] MEDS: INSULIN LISPRO SLIDING SCALE 100 UNITS/ML VIAL SUBQ PRN (11:29)
--- NOTE | 2022-01-26 12:00 | NUR ---
GTUBE WITH 0 ML RESIDUAL. PT TOLERATING FEEDING. HOB ELEVATED. O2 SATURATION @ 96%. GTUBE FEEDING RESTARTED. NEEDS ALL MET AT THIS TIME. SAFETY MEASURES IN PLACE.
--- NOTE | 2022-01-26 13:30 | NUR ---
RESTING WELL EQUAL CHEST RISE DEEP TRACHEAL SUCTIO FOR SMALL SEMI THICK YELLOW SECRETIONS AIRWAY PATENT
--- NOTE | 2022-01-26 15:00 | NUR ---
LAB STATES NOT ENOUGH SAMPLE FOR URINE CULTURE. URINE CULTURE RECOLLECTED AND SENT TO LAB.
[2022-01-26] MEDS: NACL 0.9% 1,000 ML IV SCH (16:25)
--- NOTE | 2022-01-26 16:44 | NUR ---
RESTING COMFORTABLY GOOD CHEST RISE AIRWAY PATENT
--- NOTE | 2022-01-26 18:52 | NUR ---
PT WITH BM. GTUBE FEEDING ON HOLD. ASSISTED IN HYGIENIC CARE. PT REPOSITIONED AND SUCTIONED. O2 SATURATION @ 97%. GTUBE WITH 0 ML RESIDUAL. GTUBE FEEDING RESTARTED WITH HOB ELEVATED. PT RESTING COMFORTABLY. WHEN ASKED PT IF HE WAS OKAY, PT NODS, "YES". NEEDS ALL MET. ALL SAFETY MEASURES IN PLACE.
--- NOTE | 2022-01-26 19:26 | NUR ---
ENDORSED PLAN OF CARE TO NIGHTSHIFT NURSE.
--- NOTE | 2022-01-26 19:30 | NUR ---
RECEIVED BEDSIDE REPORT FROM DAY SHIFT RN FOR CONTINUITY OF CARE. PT IS ASLEEP. PT IS TRACH TO VENT SETTINGS: FIO2 24%. VT 500. RT 12. PEEP 5. PT HAS LEFT FOOT 20 GAUGE WITH NS 60 CC/HR. FC IN PLACE DRAINING CLEAR YELLOW URINE. PT IS ON TUBE FEEDING GLUCERNA 1.2 70 CC/HR, WATER FLUSH 225 Q4H. PROSOURCE DAILY. BED AT THE LOWEST POSITION. HEAD OF BED RAISED. WILL CONTINUE TO MONITOR THE PT.
[2022-01-26] MEDS: MAGNESIUM HYDROXIDE 2400 MG/30 ML UDC GT SCH (21:22)
[2022-01-26] MEDS: ATORVASTATIN 80 MG TAB GT SCH (21:23)
--- NOTE | 2022-01-26 21:30 | NUR ---
SCHEDULE MEDS GIVEN. NO ADVERSE REACTION NOTED. WILL CONTINUE TO MONITOR THE PT.
[2022-01-27] VITALS: BP 146/81
--- NOTE | 2022-01-27 00:20 | NUR ---
PT IS SLEEPING IN BED COMFORTABLY. PT IS NOT IN ANY DISTRESS. VISIBLE RISE AND CHEST FALL. FEEDING RUNNING PER MD ORDER. IVF RUNNING PER MD ORDER. BED AT THE LOWEST POSITION. HEAD OF BED RAISED. WILL CONTINUE TO MONITOR THE PT.
[2022-01-27] MEDS: Z-GUARD PASTE TP SCH ×2 (01:16→11:30)
--- NOTE | 2022-01-27 01:19 | NUR ---
PT REMOVED IV ON LEFT FOOT. CATHETER INTACT. NEW IV INSERTED ON LEFT HAND 22 GAUGE.
[2022-01-27] MEDS: VANCOMYCIN 1,000 MG in DEXTROSE 5% 250 ML IV SCH (03:09)
[2022-01-27 04:00] VITALS: BP 138/76
[2022-01-27] MEDS ORDERED: PIPERACILLIN/TAZOBACTAM 3.375 GM VIAL IV ONE (05:02)
[2022-01-27] MEDS: PIPERACILLIN/TAZOBACTAM 3.375 GM in DEXTROSE 5% 50 ML IV SCH ×2 (05:15→12:01)
--- NOTE | 2022-01-27 05:20 | NUR ---
SCHEDULE MEDS GIVEN. NO ADVERSE REACTION NOTED. WILL CONTINUE TO MONITOR THE PT.
[2022-01-27] MEDS: NACL 0.9% 1,000 ML IV SCH (05:21)
--- NOTE | 2022-01-27 07:08 | NUR ---
ENDORSE PT TO DAY SHIFT RN FOR CONTINUITY OF CARE. PT IS STABLE.
[2022-01-27 07:15] LABS: BASOPHILS % (AUTO) 0.3 % (0.0-2.0); EOSINOPHILS # (AUTO) 1.1 K/uL (0-0.4); EOSINOPHILS % (AUTO) 12.9 % (0.0-4.0); HEMATOCRIT 26.2 % (36-52); HEMOGLOBIN 8.6 g/dL (12.0-18.0); LYMPHOCYTES # (AUTO) 1.3 K/uL (2.0-11.5); MEAN CORPUSCULAR HEMOGLOBIN 28 pg (27-31); MEAN CORPUSCULAR HGB CONC 33 g/dL (33-37); MEAN CORPUSCULAR VOLUME 86.9 fL (80-94); MONOCYTES # (AUTO) 0.9 K/uL (0.8-1.0); MONOCYTES % (AUTO) 10.8 % (1.7-9.3); NEUTROPHILS # (AUTO) 5.1 K/uL (1.8-7.7); PLATELET COUNT (AUTO) 274 K/uL (140-450); RED BLOOD CELL COUNT(AUTO) 3.02 MIL/uL (4.20-6.10); RED CELL DISTRIBUTION WIDTH 16.6 % (11.6-13.7); WHITE BLOOD COUNT (AUTO) 8.4 K/uL (4.8-10.8)
--- NOTE | 2022-01-27 07:22 | NUR ---
[facility] PT AWAKE & ALERT. APHASIC. TRACH TO VENT WITH FIO2 @ 24%, R 12, FLOW 40L, TV 500, PEEP 5. HOB ELEVATED. O2 SATURATION @ 96%. RT AT BEDSIDE. GT FEEDING INFUSING. 0ML RESIDUAL. PT TOLERATING FEEDING WELL. GLUCERNA 1.2 @ 70 ML/HR WITH WATER FLUSH 225 ML Q.4HR. SOFT MITTENS ON L HAND. GUALLPA VIA GRAVITY. NEEDS ALL MET AT THIS TIME. SAFETY MEASURES IN PLACE.
[2022-01-27] MEDS: BLOOD GLUCOSE MONITORING 1 DEV DEV FS SCH ×3 (07:34→16:30)
[2022-01-27 07:39] LABS: ANION GAP 13.4 (8-16); CARBON DIOXIDE 24.3 mmol/L (21-32); CHLORIDE 107 mmol/L (98-107); CREATININE 0.9 mg/dL (0.6-1.3); GLUCOSE 136 mg/dL (74-106); POTASSIUM 3.7 mmol/L (3.5-5.1); SODIUM SERUM 141 mmol/L (136-145); UREA NITROGEN, BLOOD 12 mg/dL (7-18)
[2022-01-27 08:00] VITALS: BP 145/78
[2022-01-27] MEDS: DOCUSATE 100 MG/10 ML UDC GT SCH ×2 (09:00→09:04)
[2022-01-27] MEDS: ASPIRIN 81 MG TAB.CHEW GT SCH (09:03)
[2022-01-27] MEDS: FERROUS SULFATE 300 MG/5 ML UDC GT SCH (09:03)
[2022-01-27] MEDS: lisinopriL 20 MG TAB GT SCH (09:04)
[2022-01-27] MEDS: METOPROLOL 25 MG TAB PO SCH (09:04)
[2022-01-27] MEDS: FAMOTIDINE 20 MG TAB GT SCH (09:05)
--- NOTE | 2022-01-27 11:00 | NUR ---
DISCHARGE PLANNING SW WAS CONTACTED BY [facility] ([facility]) CLINICAL COUNSELOR LUIS ALFREDO REQUESTING PATIENT'S RECENT COVID TEST AND LABS; EVEN THOUGHT CLINICAL PACKET WAS SEND ON 01/26/2022. SW DISCUSSED PATIENT'S DISCHARGE TODAY AND REQUESTED PATIENT'S ROOM NUMBER, ACCEPTING DOCTOR, AND TIME THE FACILITY WANTING PATIENT TO BE HISTORY TUTOR FROM [facility] AND TRANSPORTED TO [facility]. PER LUIS ALFREDO SHE WILL REVIEW PATIENT CLINICALS AND WILL BE CONTACTING THESE LADLE BUILDER TO CONFIRM DISCHARGE AND PROVIDE ROOM NUMBER AND TRANSPORTATION SET UPTIME. DEEP AGREED. DEEP FAXED AT PATIENT'S CLINICAL INFORMATION REQUESTED BY LUIS ALFREDO WITH COMPLETED CONFIRMATION AT ABOUT 10:51 AM SW WILL FOLLOW UP NEEDED. Addendum: 01/27/22 at 1717 by Arelis Carter DISCHARGE PLANNING LATE ENTRY TIME OF EVENT WAS ABOUT 14:10 SW WAS CONTACTED BY [facility] ([facility]) CLINICAL COUNSELOR LUIS ALFREDO STATING THAT PATIENT'S ROOM NUMBER IS 23, ACCEPTING DOCTOR, KELLIE ULLOA AND THAT PATIENT TRANSPORTATION CAN BE ARRANGE AFTER 4:00PM DEEP THANKED HER FOR THE CALL AND INFORMATION ABOUT PATIENT AND ENDED THE CALL. DEEP FAXED [facility] TRANSPORT AT [phone] PATIENT'S PCS FORM AND CONTACTED [facility] AT [phone] SPOKE TO SABA ABOUT SETTING UP PATIENT'S TRANSPORTATION TODAY FROM [facility] TO [facility] AT ABOUT 16:30. DEEP COMPLETED CALL AND THEN CONTACTED PATIENTS' RN SNEHAL TO ENDORSE INFORMATION. DEEP/RIVER WILL FOLLOW UP NEEDED. SW CONTACTED PATIENT'S SON WESLY AT TO INFORM HIM THAT PATIENT IS READY FOR DISCHARGE TODAY AND WILL BE TRANSFER BACK TO [facility]. PATIENT'S SON WAS THANKFUL FOR THE INFORMATION AND UPDATE AND ENDED THE CALL.
[2022-01-27] MEDS ORDERED: VANC1PLA7 IV (11:31)
[2022-01-27] MEDS ORDERED: ZOS3.375PM IV (11:31)
[2022-01-27 11:51] VITALS: BP_SYST 142; BP_SYST 145; BP_DIAS 78; BP_DIAS 81
[2022-01-27 12:00] VITALS: BP 142/68
--- NOTE | 2022-01-27 12:00 | NUR ---
PT RESTING COMFORTABLY. HOB ELEVATED. O2 SAT @ 97%. GTUBE RESIDUAL WITH 0 ML. PT TOLERATING FEEDING. NEEDS ALL MET AT THIS TIME. SAFETY MEASURES IN PLACE.
--- NOTE | 2022-01-27 14:00 | NUR ---
CONTACTED TONYA MELARA (SON) AND GAVE DISCHARGE INSTRUCTIONS. PT VERBALIZED UNDERSTANDING. PT WILL BE TRANSFERRED BACK TO [facility].
--- NOTE | 2022-01-27 14:15 | NUR ---
REPORT GIVEN TO RAJANI FROM [facility].
[2022-01-27 16:00] VITALS: BP 137/73
--- NOTE | 2022-01-27 17:12 | NUR ---
PT TRANSPORTED OUT VIA [facility].
[2022-01-28] MEDS ORDERED: lisinopriL 20 MG TAB GT SCH (09:00)
== END 2022-01-27 17:05 | DRG 870 ==
LOC: MED 17:09 → MMU 20:15 → MTU 01-22 17:25
PROVIDERS: ADMIT Student in an Organized Health Care Education/Training Program; ATTEND Student in an Organized Health Care Education/Training Program
PROC: 5A1955Z Respiratory Ventilation, Greater than 96 Consecutive Hours (ICD-10-PCS; principal; 2022-01-22)
DX: A41.9 Sepsis, unspecified organism (principal); N17.0 Acute kidney failure with tubular necrosis; J96.20 Acute and chronic respiratory failure, unspecified whether with hypoxia or hypercapnia; J69.0 Pneumonitis due to inhalation of food and vomit; E44.0 Moderate protein-calorie malnutrition; I69.351 Hemiplegia and hemiparesis following cerebral infarction affecting right dominant side; E87.1 Hypo-osmolality and hyponatremia; N39.0 Urinary tract infection, site not specified; Z16.19 Resistance to other specified beta lactam antibiotics; D63.8 Anemia in other chronic diseases classified elsewhere; N18.9 Chronic kidney disease, unspecified; Z93.0 Tracheostomy status; Y95 Nosocomial condition; Z66 Do not resuscitate; E78.00 Pure hypercholesterolemia, unspecified; N31.9 Neuromuscular dysfunction of bladder, unspecified; E87.6 Hypokalemia; R13.10 Dysphagia, unspecified; I12.9 Hypertensive chronic kidney disease with stage 1 through stage 4 chronic kidney disease, or unspecified chronic kidney disease; E11.22 Type 2 diabetes mellitus with diabetic chronic kidney disease; Z20.822 Contact with and (suspected) exposure to COVID-19; Z79.899 Other long term (current) drug therapy; Z79.4 Long term (current) use of insulin; Z86.16 Personal history of COVID-19; Z86.718 Personal history of other venous thrombosis and embolism
CPT/HCPCS: 36415; 36600; 71045; 80048; 80053; 80202; 81001; 82150; 82803; 82948; 83605; 83690; 83735; 83880; 84100; 84484; 85025; 87040; 87070; 87081; 87086; 87205; 89220; 93005; 94003; 96365; 96367; 99285; J0696; J1644; J2543; J3370; J7060; Q0092

== ENCOUNTER 2022-06-12 21:56 | Inpatient (IN) | payer OTHER, MEDICAID ==
[~2022-06-12] VITALS: Ht 175.3 cm; Wt 72.6 kg
[~2022-06-12 21:56] MED LIST changes: +ASPI-1749 GT; +BISA-213 RC; +FAMO-90 GT; -IV Vancomycin IV; -IV Zosyn IV; +LIP80 GT; +MAGN400S60 GT; -MEDI237S4 GT; -METO50TA20 GT; -MVI,5VIA5 GT; +VANC1PLA7 IV; -ZINC50TA76 GT
[2022-06-12 22:05] VITALS: BP 128/88
[2022-06-12] MEDS ORDERED: cefTRIAXone 2,000 MG in DEXTROSE 5% 100 ML IV ONE (22:20)
[2022-06-12] MEDS ORDERED: NACL 0.9% 1,000 ML IV SCH (22:20)
--- NOTE | 2022-06-12 22:35 | NUR ---
XRAY AT BEDSIDE.
--- NOTE | 2022-06-12 22:40 | NUR ---
URINE COLLECTED, SWABS COLLECTED ANS SENT TO LAB
[2022-06-12 22:41] LABS: BASOPHILS # (AUTO) 0.1 K/uL (0.00-0.22); BASOPHILS % (AUTO) 0.4 % (0.0-2.0); EOSINOPHILS # (AUTO) 0.3 K/uL (0-0.4); EOSINOPHILS % (AUTO) 1.4 % (0.0-4.0); HEMATOCRIT 30.9 % (36-52); HEMOGLOBIN 10.1 g/dL (12.0-18.0); LYMPHOCYTES % (AUTO) 4.4 % (20.5-51.1); MEAN CORPUSCULAR HEMOGLOBIN 27 pg (27-31); MEAN CORPUSCULAR HGB CONC 33 g/dL (33-37); MEAN CORPUSCULAR VOLUME 81.2 fL (80-94); MONOCYTES # (AUTO) 1.5 K/uL (0.8-1.0); MONOCYTES % (AUTO) 6.6 % (1.7-9.3); NEUTROPHILS # (AUTO) 20.2 K/uL (1.8-7.7); NEUTROPHILS % (AUTO) 87.2 % (42.2-75.2); PLATELET COUNT (AUTO) 335 K/uL (140-450); RED CELL DISTRIBUTION WIDTH 15.4 % (11.6-13.7); WHITE BLOOD COUNT (AUTO) 23.2 K/uL (4.8-10.8)
--- NOTE | 2022-06-12 22:41 | NUR ---
PT TO CT VIA [facility]
[2022-06-12 22:53] LABS: APPEARANCE,URINE CLOUDY (CLEAR); BILIRUBIN,URINE NEGATIVE (NEGATIVE); BLOOD, URINE 3+ (NEGATIVE); COLOR,URINE YELLOW (YELLOW); LEUKOCYTE ESTERASE ,URINE 3+ (NEGATIVE); NITRITE, URINE NEGATIVE (NEGATIVE); UGLUCOSE NEGATIVE (NEGATIVE)
[2022-06-12 22:59] LABS: ALBUMIN 3.6 g/dL (3.4-5.0); ANION GAP 13.4 (8-16); ASPARTATE AMINOTRANSFERASE 22 U/L (15-37); CARBON DIOXIDE 29.9 mmol/L (21-32); CHLORIDE 94 mmol/L (98-107); CREATININE 1.1 mg/dL (0.6-1.3); GLUCOSE 184 mg/dL (74-106); POTASSIUM 4.3 mmol/L (3.5-5.1); SODIUM SERUM 133 mmol/L (136-145); TOTAL BILIRUBIN 0.2 mg/dL (0.0-1.0); UREA NITROGEN, BLOOD 28 mg/dL (7-18)
--- NOTE | 2022-06-12 22:59 | NUR ---
PT BACK FROM CT
[2022-06-12] MEDS ORDERED: cefTRIAXone 2,000 MG VIAL ONE (23:05)
[2022-06-12 23:09] LABS: RBC,URINE 0-5 /HPF (0-5); WBC,URINE TOO MANY TO COUNT /HPF (0-5)
[2022-06-12] MEDS ORDERED: ACETAMINOPHEN 650 MG SUPP RC ONE (23:13)
--- NOTE | 2022-06-13 | NUR ---
Patient appears to be resting comfortably in bed. Vital Signs within normal limits. Respirations even and unlabored.
--- NOTE | 2022-06-13 02:00 | NUR ---
Patient appears to be resting comfortably in bed. Vital Signs within normal limits. Respirations even and unlabored.
[2022-06-13] MEDS ORDERED: NACL 0.9% 1,000 ML IV ONE (02:20)
[2022-06-13] MEDS: NACL 0.9% 1,000 ML IV SCH ×3 (02:40→15:36)
[2022-06-13] MEDS ORDERED: ACETAMINOPHEN 650 MG SUPP RC ONE (02:45)
--- NOTE | 2022-06-13 04:00 | NUR ---
Patient appears to be resting comfortably in bed. Vital Signs within normal limits. Respirations even and unlabored.
--- NOTE | 2022-06-13 06:10 | NUR ---
PT CLEANED AT THIS TIME. FULL LINEN CHANGE DONE. PT AWAITING BED ASSIGNMENT.
[2022-06-13] MEDS ORDERED: MULT-1328 PO (06:34)
[2022-06-13] MEDS ORDERED: METF-346 PO (06:34)
[2022-06-13] MEDS ORDERED: VITA-16 GT (06:34)
--- NOTE | 2022-06-13 07:15 | NUR ---
REPORT TO LOREE WALKER
--- NOTE | 2022-06-13 08:50 | NUR ---
Patient will be admitted to care of DR GARCIA. Admited to TELE. Will go to room 122. Belongings list completed. Report to GEMMA.
[2022-06-13 08:55] VITALS: BP 157/91
--- NOTE | 2022-06-13 09:00 | NUR ---
Pt trans to 122 on floor with RT without incident. Bedside report given to DENISE Markham. Pt in stable condition. Vss, no ss of acute distress, breathing equal and unlabored, pt on monitor, and O2 placed by RT.
--- NOTE | 2022-06-13 09:09 | NUR ---
RECEIVED PT FROM RESTAURANT ASSOCIATELOREE, PT IS ASLEEP AND LYING ON THE BED WITH SIDE RAILS UP AND CALL LIGHT WITHIN REACH, IV LINE NOTED ON N THE RIGHT HAND G. 20 WITH IVF NS INFUSING AT 120ML/HR, PT IS ON A TRACH TO T-PIECE AT 10L O2, GUALLPA CATHETER AND G-TUBE IN PLACE, NO SIGN OF DISTRESS NOTED AND WILL CONTINUE TO MONITOR PT.
--- NOTE | 2022-06-13 09:27 | NUR ---
PATIENT HAS BEEN SCREENED AND CATEGORIZED MODERATE NUTRITION RISK. PATIENT WILL BE SEEN WITHIN 3-5 DAYS OF ADMISSION. REVIEWED BY CODI FAIRBANKS RD
[2022-06-13] MEDS ORDERED: AZITHROMYCIN 250 MG TAB PO SCH (10:00)
--- NOTE | 2022-06-13 11:30 | NUR ---
MRSA SWAB DONE TO PT NOW.
[2022-06-13 12:00] VITALS: BP 142/89
--- NOTE | 2022-06-13 12:00 | NUR ---
DISCHARGE PLANNING PATIENT IS A 76 YEAR OLD MALE ADMITTED IN 06/13/2022 TO THE [facility]/ED DUE TO SEVERE SEPSIS. SW ATTEMPTED TO MEET WITH PATIENT AT BEDSIDE TO GET ALL HIS COLLATERAL INFORMATION. PATIENT WAS AWAKE BUT IS NOT ALERT AND NON-VERBAL, PATIENT IS TOTAL CARE ON A TRACH. SW LEFT THE ROOM AND ATTEMPTED TO CONTACT PATIENT'S SONS'S WESLY MELARA AT AND TONYA MELARA AT NO ANSWER FROM NEITHER OF PATIENT'S SON'S AND SW LEFT THEM BOTH A VOICE MAIL MSG WITH THIS [employer]ICE [employer] WORKER'S CONTACT INFORMATION AND REQUEST FOR A CALL BACK SOON POSSIBLE. SW CONTACTED PATIENT'S SNF/CEC AT TO DISCUSS AND GATHER HIS COLLATERAL INFORMATION. SW SPOKE TO CARONRAMSEY FROM ADMINISTRATION, PER YUNIER PATIENT HAS BEEN THEIR RESIDENT IN THEIR FACILITY SINCE 11/11/2022. PATIENT COMES FROM HOME AND IS UNDER A USP BED HOLD. PATIENT HAS FAMILY INVOLVEMENT AND SUPPORT FROM HIS SONS WESLY MELARA AND TONYA MELARA WHO COME AND VISIT PATIENT IN REGULAR BASIS. PER YUNIER PATIENT, HAS NO ADVANCE DIRECTIVES HOWEVER; THERE IS POLTS IN PLACE AND ON CHART. PATIENT HAS NO ISSUES WITH MEDICATIONS, EQUIPMENT AND TREATMENT EVERYTHING IS PROVIDED AT SNF/CEC. PER YUNIER PATIENT IS WELCOME TO RETURN TO THEIR FACILITY WHEN HE IS READY AND STABLE FOR DISCHARGE. DEEP/RIVER WILL FOLLOW UP NEEDED.
--- NOTE | 2022-06-13 12:30 | NUR ---
PT WAS CLEANED AND SKIN ASSESSMENT WAS DONE AND SKIN IS INTACT.
--- NOTE | 2022-06-13 13:30 | NUR ---
G-TUBE WAS REINFORCED WITH DRESSING AND WAS FLUSHED AND CHECKED, INTACT
[2022-06-13] MEDS ORDERED: ONDANSETRON 4 MG/2 ML VIAL IVP PRN (14:00)
[2022-06-13] MEDS ORDERED: HYDROcodone/APAP 7.5/325 MG 1 TAB PO PRN (14:00)
[2022-06-13] MEDS ORDERED: MAG SULF 2000 MG/WATER PREMIX 50 ML IV PRN (14:00)
[2022-06-13] MEDS ORDERED: POTASSIUM CHLORIDE 10 MEQ TABER PO PRN (14:00)
[2022-06-13] MEDS ORDERED: ACETAMINOPHEN 325 MG TAB PO PRN (14:00)
--- NOTE | 2022-06-13 14:41 | NUR ---
FNS CONSULT HAS BEEN RECEIVED FOR TUBE FEEDING ON 06/13/2022. PATIENT HAS BEEN RE-SCREENED HIGH RISK AND WILL BE SEEN WITHIN 1-2 DAYS OF RECEIVING THE FNS CONSULT. -WHEN/IF MEDICALLY APPROPRIATE, RECOMMEND GLUCERNA 1.2 AT GOAL RATE 75 ML/HR FWF 150 ML Q4H TOLERATED -PROVIDES 1800 ML TOTAL VOLUME, 2160 KCAL, 108 GM PROTEIN AND 2349 ML FREE WATER DAILY -START TF AT 1O ML/HR INCREASE BY 1O ML Q4H UNTIL GOAL IS REACHED TOLERATED REVIEWED BY CODI FAIRBANKS RD
[2022-06-13 15:00] LABS: BASOPHILS % (AUTO) 0.3 % (0.0-2.0); EOSINOPHILS # (AUTO) 0.1 K/uL (0-0.4); EOSINOPHILS % (AUTO) 0.5 % (0.0-4.0); HEMATOCRIT 29.2 % (36-52); HEMOGLOBIN 9.8 g/dL (12.0-18.0); LYMPHOCYTES # (AUTO) 1.2 K/uL (2.0-11.5); LYMPHOCYTES % (AUTO) 6.7 % (20.5-51.1); MEAN CORPUSCULAR HEMOGLOBIN 27 pg (27-31); MEAN CORPUSCULAR HGB CONC 34 g/dL (33-37); MEAN CORPUSCULAR VOLUME 81.1 fL (80-94); MONOCYTES # (AUTO) 1.5 K/uL (0.8-1.0); MONOCYTES % (AUTO) 8.2 % (1.7-9.3); NEUTROPHILS # (AUTO) 15.8 K/uL (1.8-7.7); NEUTROPHILS % (AUTO) 84.3 % (42.2-75.2); PLATELET COUNT (AUTO) 304 K/uL (140-450); RED CELL DISTRIBUTION WIDTH 15.5 % (11.6-13.7); WHITE BLOOD COUNT (AUTO) 18.7 K/uL (4.8-10.8)
[2022-06-13 15:34] LABS: ANION GAP 12.4 (8-16); CARBON DIOXIDE 28.8 mmol/L (21-32); CHLORIDE 99 mmol/L (98-107); CREATININE 0.8 mg/dL (0.6-1.3); GLUCOSE 200 mg/dL (74-106); POTASSIUM 4.2 mmol/L (3.5-5.1); SODIUM SERUM 136 mmol/L (136-145); UREA NITROGEN, BLOOD 20 mg/dL (7-18)
[2022-06-13 15:36] LABS: PROTHROMBIN TIME 10.8 secs (10.8-13.4)
[2022-06-13 15:56] LABS: CHOL/HDL RATIO 2.1 (1-4.5); FREE T4 (FREE THYROXINE) 1.24 ng/dL (0.76-1.46); MAGNESIUM 1.9 mg/dL (1.8-2.4); PHOSPHORUS 2.7 mg/dL (2.5-4.9); THYROID STIMULATING HORMONE 0.75 uIU/mL (0.34-3.74)
[2022-06-13 16:00] VITALS: BP 136/85
--- NOTE | 2022-06-13 16:20 | NUR ---
CALLED RT TO ASSESS PT NOW, PT IS DESATURATING AT 78%
--- NOTE | 2022-06-13 18:45 | NUR ---
CONTINUOUS TUBE FEEDING OF GLUCERNA 1.2 WAS STARTED TO PT NOW AT RATE OF 10ML/HR, VIA G-TUBE, WHICH IS TO BE INCREASE 10ML EVERY 4H UNTIL GOAL OF 75 IS REACH, WATER FLUSH OF 150 Q4H
--- NOTE | 2022-06-13 19:30 | NUR ---
ENDORSED PT TO NIGHT RN FOR CONTINUITY OF CARE, PT IS STABLE AT THIS TIME
--- NOTE | 2022-06-13 19:30 | NUR ---
RECEIVED REPORT FROM DAY NURSE JOHN. PT IN BED, APPEARED TO BE SLEEPING. GUALLPA CATHETER DRAINING YELLOW URINE, PT ON GT-TUBE GLUCERNA 1.2, RUNNING AT 10ML/HR TO BE GRADUATED Q4 HOURS BY 10. GOAL BEING 75ML/HR. O2 DELIVERY METHOD TRACH TOT-PIECE. RT HAND G20 IV LINE RUNNING WITH NS @50. NOTED PT WHEEZING, RT CONTACTED AND PT SUCTIONED. WILL CONT. TO MONITOR.
[2022-06-13] MEDS ORDERED: DOCUSATE SODIUM 100 MG GELCAP PO SCH (21:00)
[2022-06-13] MEDS: ATORVASTATIN 80 MG TAB GT SCH (21:05)
[2022-06-13] MEDS: DOCUSATE SODIUM 100 MG GELCAP PO SCH (21:06)
[2022-06-13] MEDS: METOPROLOL 25 MG TAB PO SCH (21:06)
[2022-06-13] MEDS: metFORMIN 500 MG TAB PO SCH (21:07)
--- NOTE | 2022-06-13 21:30 | NUR ---
ALL DUE MEDICATIONS GIVEN VIA G-TUBE. PT REPOSITIONED, MADE COMFORTABLE. NOTED WHEEZING, PT SUCTIONED AND MADE COMFORTABLE.
[2022-06-13 21:49] LABS: BARBITURATE, URINE NEGATIVE ng/ml (NEG <=200); BENZODIAZEPINE, URINE NEGATIVE ng/mL (NEG <=200); CANNABINOID, URINE NEGATIVE ng/mL (NEG <=50); COCAINE, URINE NEGATIVE ng/mL (NEG <=300); OPIATE, URINE NEGATIVE ng/mL (NEG <=2000); PHENCYCLIDINE SCREEN,URINE NEGATIVE ng/mL (NEG <=25)
--- NOTE | 2022-06-13 23:23 | NUR ---
PT LAYING IN BED IN SUPINE POSITION, HOB ELEVATED, NO SIGNS OF RESPIRATORY DISTRESS NOTED AT THIS TIME PT IS CURRENT SPO2 99% ON COOL AEROSOL 6L N/C 30% TITRATED FIO2 TO 28% AT THIS TIME. NO LABORED BREATHING AND NO USE OF ACCESSORY MUSCLES NOTED. ANTERIOR AUSCULTATIONS REVEALED COARSE CRACKLES THROUGHOUT ALL LUNG MONTES, STRONG NON PRODUCTIVE COUGH NOTED, SXN SMALL WHITE THICK SECRETIONS WILL CONTINUE TO MONITOR.
[2022-06-13 23:32] VITALS: BP 160/92
[2022-06-14 05:50] LABS: BASOPHILS # (AUTO) 0.1 K/uL (0.00-0.22); BASOPHILS % (AUTO) 0.4 % (0.0-2.0); EOSINOPHILS # (AUTO) 0.8 K/uL (0-0.4); EOSINOPHILS % (AUTO) 4.7 % (0.0-4.0); HEMOGLOBIN 9.3 g/dL (12.0-18.0); LYMPHOCYTES # (AUTO) 1.3 K/uL (2.0-11.5); LYMPHOCYTES % (AUTO) 7.7 % (20.5-51.1); MEAN CORPUSCULAR HEMOGLOBIN 27 pg (27-31); MEAN CORPUSCULAR HGB CONC 33 g/dL (33-37); MEAN CORPUSCULAR VOLUME 82.4 fL (80-94); MONOCYTES # (AUTO) 1.3 K/uL (0.8-1.0); MONOCYTES % (AUTO) 7.8 % (1.7-9.3); NEUTROPHILS # (AUTO) 13.4 K/uL (1.8-7.7); NEUTROPHILS % (AUTO) 79.4 % (42.2-75.2); PLATELET COUNT (AUTO) 310 K/uL (140-450); RED CELL DISTRIBUTION WIDTH 15.4 % (11.6-13.7); WHITE BLOOD COUNT (AUTO) 16.9 K/uL (4.8-10.8)
[2022-06-14 06:07] VITALS: BP 148/73
[2022-06-14 06:39] LABS: CARBON DIOXIDE 30.3 mmol/L (21-32); CHLORIDE 99 mmol/L (98-107); CREATININE 1.1 mg/dL (0.6-1.3); GLUCOSE 178 mg/dL (74-106); POTASSIUM 4.3 mmol/L (3.5-5.1); SODIUM SERUM 136 mmol/L (136-145); UREA NITROGEN, BLOOD 18 mg/dL (7-18)
[2022-06-14 06:41] LABS: MAGNESIUM 1.8 mg/dL (1.8-2.4); PHOSPHORUS 3.2 mg/dL (2.5-4.9)
--- NOTE | 2022-06-14 07:35 | NUR ---
END OF SHIFT REPORT GIVEN TO AM NURSE LONNIE. PT STABLE, EMPTIED 700ML YELLOW URINE. PT CLEANED UP, GIVENPARTIAL BATH WITH MASSIEL CARE. NOTED SMALLBOWEL MOVEMENT. PT STABLE AND IN NO APPARENT DISTRESS.
[2022-06-14] MEDS: lisinopriL 20 MG TAB GT SCH (08:47)
[2022-06-14] MEDS: DOCUSATE SODIUM 100 MG GELCAP PO SCH ×2 (08:47→20:10)
[2022-06-14] MEDS: LACTOBACILLUS RHAMNOSUS GG 1 EACH CAP GT SCH (08:47)
[2022-06-14] MEDS: AZITHROMYCIN 250 MG TAB PO SCH (08:48)
[2022-06-14] MEDS: metFORMIN 500 MG TAB PO SCH ×2 (08:49→20:10)
[2022-06-14] MEDS: CHOLECALCIFEROL 1,000 IU TAB PO SCH (08:54)
[2022-06-14] MEDS: METOPROLOL 25 MG TAB PO SCH ×2 (08:54→20:10)
[2022-06-14] MEDS: MULTIVITAMIN/MINERALS 1 TAB GT SCH (09:00)
[2022-06-14] MEDS ORDERED: ASPIRIN 81 MG TAB.CHEW GT SCH (09:00)
[2022-06-14] MEDS ORDERED: ASCORBIC ACID GT SCH (09:00)
[2022-06-14] MEDS ORDERED: LACTOBACILLUS ACIDOPHILUS GT SCH (09:00)
[2022-06-14] MEDS ORDERED: MULTIVITAMIN/MINERALS 15 ML UDBTL GT SCH (09:00)
[2022-06-14] MEDS ORDERED: [UNRECOGNIZED DRUG - OTHER] GT SCH (09:00)
[2022-06-14] MEDS ORDERED: CHOLECALCIFEROL GT SCH (09:00)
[2022-06-14] MEDS ORDERED: ASCORBIC ACID 500 MG/5 ML ORASYR GT SCH (09:00)
[2022-06-14] MEDS ORDERED: ASCORBATE SODIUM GT SCH (09:00)
[2022-06-14] MEDS ORDERED: PANTOPRAZOLE 40 MG INJ VIAL IVP SCH (09:00)
[2022-06-14] MEDS ORDERED: NON-FORMULARY ITEM (Multivitamin with Minerals (Multivitamins with Minerals) 1 TAB) PO SCH (09:00)
--- NOTE | 2022-06-14 09:00 | NUR ---
NURSES NOTE RECEIVED PATIENT ON BED SIDE , A/OX0 , NON VERBL , VSS , SINUS TACHYCARDIA ON MONITOR , ON VENT TRAC O2 SKIN INTACT , WITH GUALLPA CATHETER , ON GASTRIC TUB FEEDING RATE 50CC/H FOR NOW ICRESED EVERY 4 HOURS TO REACH THE GAOL 70 ML/H , ON NS 0.9% ON RATE 50CC , NO COMPLAIN , SAFETY ON PLACE , SIDE RAILS UP X3 , BED ON LOWER POSITION , CALL LIGHT WITHIN REACH , BED ALARM OLN , STILL UNDER OBSERVE .
--- NOTE | 2022-06-14 09:11 | NUR ---
PT. WITH LOW JONO SCALE AT MODERATE TO HIGH RISK, CONTINUE TO FOLLOW PRESSURE INJURY PREVENTION INTERVENTIONS. -POSITIONING: TURN AND REPOSITION PATIENT Q 2H OR SOONER USE PILLOWS TO KEEP BONY PROMINENCES FROM DIRECT CONTACT WITH SURFACES USE REPOSITIONING WEDGES TO PROVIDE 30-DEGREE ANGLE FOR SIDE LYING POSITIONS OFFLOADING OR FOAM DRESSING TO ALL TUBING TO PREVENT MEDICAL DEVICES RELATED PRESSURE INJURY -RE-EVALUATING AND MANAGING INCONTINENCE MONITOR SKIN CONDITION DURING POSITION CHANGE DO NOT MASSAGE REDNESS, BONY PROMINENCES FREQUENT MASSIEL-CARE AND PROVIDE BARRIER CREAMS PRN IF SOILING MOISTURE CONTROL BY OFFER BED WINN/URINAL /ABSORBENT PAD TO WICK AND HOLD MOISTURE KEEP SKIN DRY AND PROTECT FROM FRICTION -MANAGE FRICTION/SHEAR/MOBILITY KEEP HOB AT THE LOWEST LEVEL OF ELEVATION NO MORE THAN 30 DEGREE UNLESS OTHERWISE CONTRAINDICATED USE LIFT SHEET OR TRANSFER DEVICE TO MOVE PATIENT AND PREVENT LATERAL SHEER. PROTECT HEELS, ELBOWS BONY PROMINENCES WITH SKIN BERRIES OR FOAM DRESSING IF EXPOSED TO FRICTION OFFLOAD BILATERAL HEELS BY PLACING PILLOWS UNDER CALVES AT ALL TIMES, UNLESS OTHERWISE CONTRAINDICATED -PRESSURE REDISTRIBUTION SURFACE THERAPY LITA ISOFLEX MATTRESS -NUTRITION: PLEASE FOLLOW RD RECOMMENDATIONS AND OFFER NUTRITION SUPPLEMENTS IF ORDERED. PLEASE CONTACT WOUND CARE NURSE FOR ANY QUESTION AND CHANGE OF WOUND CONDITION.
[2022-06-14 09:24] VITALS: BP 146/91
[2022-06-14] MEDS: NACL 0.9% 1,000 ML IV SCH (10:00)
[2022-06-14 12:00] VITALS: BP 133/89
--- NOTE | 2022-06-14 14:12 | NUR ---
NURSES NOTE PATIENT SEEM BY GI , NO NEW ORDER .
--- NOTE | 2022-06-14 14:41 | NUR ---
NURSES NOTE GI DR BETANCOURT EGD ROR PATIENT CONSENT TAKEN FROM HIS SON , DUE PATIENT UNABLE TO SIGN .
[2022-06-14] MEDS: METOCLOPRAMIDE 10 MG/2 ML INJ VIAL IVP SCH ×2 (14:42→20:10)
[2022-06-14] MEDS ORDERED: Z-GUARD PASTE TP SCH (15:30)
[2022-06-14 16:00] VITALS: BP 128/84
--- NOTE | 2022-06-14 17:52 | NUR ---
UPDATE ON PATIENT PATIENT ORDER FOR EGD CONSENT OBTAIN NURSES NOTE RECEIVED PATIENT ON BED SIDE , A/OX0 , NON VERBL , VSS , SINUS TACHYCARDIA ON MONITOR , ON VENT TRAC O2 SKIN INTACT , WITH GUALLPA CATHETER , ON GASTRIC TUB FEEDING RATE 50CC/H FOR NOW ICRESED EVERY 4 HOURS TO REACH THE GAOL 70 ML/H , ON NS 0.9% ON RATE 50CC , NO COMPLAIN , SAFETY ON PLACE , SIDE RAILS UP X3 , BED ON LOWER POSITION , CALL LIGHT WITHIN REACH , BED ALARM OLN , STILL UNDER OBSERVE .
--- NOTE | 2022-06-14 19:30 | NUR ---
PATIENT IS ASLEEP. NO S/SX OF PAIN NOR DISCOMFORT. NO S/SX OF ACUTE RESPIRATORY DISTRESS. G-TUBE PLACEMENT VERIFIED VIA AUSCULTATION, NO RESIDUAL NOTED, HEAD OF THE BED ELEVATED. SKIN WARM AND DRY TO TOUCH. SAFETY PRECAUTION IN PLACE, CALL LIGHT IN REACH.
--- NOTE | 2022-06-14 19:30 | NUR ---
REPORT GIVEN TO DEBBIE WALKER , ALL HER QUESTION ANSWER .
[2022-06-14 20:00] VITALS: BP 135/74
[2022-06-14] MEDS: ATORVASTATIN 80 MG TAB GT SCH (20:09)
[2022-06-14] MEDS: PANTOPRAZOLE 40 MG INJ VIAL IVP SCH (20:10)
--- NOTE | 2022-06-14 22:00 | NUR ---
PATIENT HAD A LARGE BOWEL MOVEMENT, CLEANED PT. PULLED UP AND REPOSITIONED. HEAD OF THE BED ELEVATED.
--- NOTE | 2022-06-15 | NUR ---
NO RESIDUAL FROM G-TUBE, HEAD OF THE BED ELEVATED. REPOSITIONED PT.
[2022-06-15 01:00] VITALS: BP 134/77
--- NOTE | 2022-06-15 02:12 | NUR ---
ROUNDING DONE. PT ASLEEP. NO S/SX OF PAIN NOR DISCOMFORT. CALL LIGHT IN REACH.
[2022-06-15 04:00] VITALS: BP 140/78
[2022-06-15] MEDS: NACL 0.9% 1,000 ML IV SCH (04:20)
[2022-06-15] MEDS: METOCLOPRAMIDE 10 MG/2 ML INJ VIAL IVP SCH ×3 (04:20→21:56)
--- NOTE | 2022-06-15 06:24 | NUR ---
PATIENT IS ASLEEP. ALL NEEDS ATTENDED TO. NO S/SX OF DISTRESS NOTED. SAFETY PRECAUTIONS IN PLACE, CALL LIGHT IN REACH.
[2022-06-15 06:33] LABS: MAGNESIUM 1.6 mg/dL (1.8-2.4); PHOSPHORUS 2.3 mg/dL (2.5-4.9)
--- NOTE | 2022-06-15 07:30 | NUR ---
RECEIVED PT ON CA 6L, 28%. SATURATION 100%, GOOD CHEST RISE, PT RESTING COMFORTABLY. WILL CONTINUE TO MONITOR.
[2022-06-15 08:00] VITALS: BP 117/63
[2022-06-15] MEDS: metFORMIN 500 MG TAB PO SCH ×2 (09:00→21:56)
[2022-06-15] MEDS: lisinopriL 20 MG TAB GT SCH (09:00)
[2022-06-15] MEDS: METOPROLOL 25 MG TAB PO SCH ×2 (09:00→21:57)
[2022-06-15] MEDS ORDERED: MIDAZOLAM 2 MG/2 ML VIAL ONE (10:01)
[2022-06-15] MEDS ORDERED: fentaNYL citrate 0.05 MG/ML VIAL ONE (10:01)
[2022-06-15] MEDS: LACTOBACILLUS RHAMNOSUS GG 1 EACH CAP GT SCH (10:20)
[2022-06-15] MEDS: MULTIVITAMIN/MINERALS 1 TAB GT SCH (10:20)
[2022-06-15] MEDS: DOCUSATE SODIUM 100 MG GELCAP PO SCH ×2 (10:21→21:56)
[2022-06-15] MEDS: CHOLECALCIFEROL 1,000 IU TAB PO SCH (10:22)
[2022-06-15] MEDS: AZITHROMYCIN 250 MG TAB PO SCH (10:23)
[2022-06-15] MEDS: PANTOPRAZOLE 40 MG INJ VIAL IVP SCH ×2 (10:31→21:55)
[2022-06-15 12:00] VITALS: BP 156/82
[2022-06-15 16:00] VITALS: BP 150/83
--- NOTE | 2022-06-15 16:03 | NUR ---
06/15/22 RD INITIAL ASSESSMENT COMPLETED PLEASE REFER TO NUTRITION ASSESSMENT UNDER CARE ACTIVITY FOR ESTIMATED NUTRITIONAL NEEDS. 1. CONTINUE GLUCERNA 1.2 @75ML/HR, FWF 120 ML Q4H, TOLERATED - PT WILL RECEIVE 1800 ML TOTAL VOLUME, 2160 KCAL, 108 G PROTEIN, AND 2170 ML FREE WATER AND WILL MEET 99% ESTIMATED CALORIE/ PROTEIN NEEDS 2. MONITOR GASTRIC RESIDUALS AND NUTRITION RELATED LAB VALUES. 3. RD TO FOLLOW-UP 3-5 DAYS, MODERATE RISK REVIEWED BY CODI FAIRBANKS RD
--- NOTE | 2022-06-15 19:20 | NUR ---
RECEIVED REPORT FROM DAY NURSE. PT IN BED ON TRACH TO VENT 2 6L SATING AT 975. PT ON G-TUBE WITH GLUCERNA 1.2 RUNNING AT 75/HR, ON HIS RT WRIST IS G2O IV LINE RUNNING ERICKA IV FLUIDS. PT ON GUALLPA DRAINING YELLOW URINE. PT APPEARED NON VERBAL, COARSE BREATHING, OPEN EYES TO NAME CALL. PT APPEARED IN NO DISTRESS, RESPIRATION EVEN.
--- NOTE | 2022-06-15 21:10 | NUR ---
PT ADMINISTERED ALL DUE MEDICATIONS, G-TUBE REPLACED, MASSIEL CARE AND REPOSITIONED. NO ASE NOTED.
[2022-06-15] MEDS: ATORVASTATIN 80 MG TAB GT SCH (21:55)
--- NOTE | 2022-06-15 22:00 | NUR ---
PT SUCTIONED, REPOSITIONED AND TURNED.
[2022-06-15] MEDS ORDERED: VANCOMYCIN PER PHARMACY MC PRN (22:30)
[2022-06-15] MEDS ORDERED: VANCOMYCIN 1GM/DEXT 5% PREMIX 200 ML IV SCH (23:25)
[2022-06-15 23:45] VITALS: BP 136/98
[2022-06-16] MEDS ORDERED: VANCOMYCIN 1,000 MG VIAL ONE (01:27)
[2022-06-16] MEDS: NACL 0.9% 1,000 ML IV SCH (02:00)
--- NOTE | 2022-06-16 02:00 | NUR ---
DOING ROUNDS, PT SUCTIONED, REPOSITINED AND CLEANED UP. SMALL BM NOTED.
[2022-06-16] MEDS: METOCLOPRAMIDE 10 MG/2 ML INJ VIAL IVP SCH ×2 (05:10→14:09)
[2022-06-16 05:19] VITALS: BP 143/95
[2022-06-16 06:52] LABS: MAGNESIUM 1.7 mg/dL (1.8-2.4); PHOSPHORUS 3.4 mg/dL (2.5-4.9)
--- NOTE | 2022-06-16 07:28 | NUR ---
END OF SHIFT REPORT GIVEN TO AM NURSE DUTCH FOR CONTINUITY OF CARE. PT STABLE, RELAXED IN BED, GUALLPA CATH EMPTIED, IN NO DISTRESS AT THIS TIME.
[2022-06-16 08:00] VITALS: BP 151/94
[2022-06-16] MEDS: metFORMIN 500 MG TAB PO SCH (08:32)
[2022-06-16] MEDS: DOCUSATE SODIUM 100 MG GELCAP PO SCH (08:32)
[2022-06-16] MEDS: AZITHROMYCIN 250 MG TAB PO SCH (08:32)
[2022-06-16] MEDS: CHOLECALCIFEROL 1,000 IU TAB PO SCH (08:32)
[2022-06-16] MEDS: METOPROLOL 25 MG TAB PO SCH (08:32)
[2022-06-16] MEDS: lisinopriL 20 MG TAB GT SCH (08:33)
[2022-06-16] MEDS: LACTOBACILLUS RHAMNOSUS GG 1 EACH CAP GT SCH (08:33)
[2022-06-16] MEDS: MULTIVITAMIN/MINERALS 1 TAB GT SCH (08:33)
[2022-06-16] MEDS: PANTOPRAZOLE 40 MG INJ VIAL IVP SCH (08:35)
[2022-06-16] MEDS ORDERED: MUPIROCIN CA NASAL 2% 1GM TUBE NS SCH (09:00)
[2022-06-16] MEDS ORDERED: Z-GUARD PASTE TP SCH ×2 (09:00→13:00)
[2022-06-16] MEDS ORDERED: CHLORHEXADINE GLUC 2% CLOTH TP SCH (09:00)
[2022-06-16 09:09] LABS: ANION GAP 16.9 (8-16); CARBON DIOXIDE 24.8 mmol/L (21-32); CHLORIDE 100 mmol/L (98-107); GLUCOSE 169 mg/dL (74-106); POTASSIUM 3.7 mmol/L (3.5-5.1); SODIUM SERUM 138 mmol/L (136-145); UREA NITROGEN, BLOOD 14 mg/dL (7-18)
[2022-06-16 09:12] LABS: BASOPHILS # (AUTO) 0.1 K/uL (0.00-0.22); BASOPHILS % (AUTO) 1.4 % (0.0-2.0); EOSINOPHILS # (AUTO) 0.8 K/uL (0-0.4); EOSINOPHILS % (AUTO) 11.1 % (0.0-4.0); HEMATOCRIT 27.4 % (36-52); HEMOGLOBIN 9.2 g/dL (12.0-18.0); LYMPHOCYTES # (AUTO) 1.2 K/uL (2.0-11.5); LYMPHOCYTES % (AUTO) 15.8 % (20.5-51.1); MEAN CORPUSCULAR HEMOGLOBIN 28 pg (27-31); MEAN CORPUSCULAR HGB CONC 34 g/dL (33-37); MEAN CORPUSCULAR VOLUME 82.7 fL (80-94); MONOCYTES # (AUTO) 0.8 K/uL (0.8-1.0); MONOCYTES % (AUTO) 11.1 % (1.7-9.3); NEUTROPHILS # (AUTO) 4.6 K/uL (1.8-7.7); NEUTROPHILS % (AUTO) 60.6 % (42.2-75.2); PLATELET COUNT (AUTO) 324 K/uL (140-450); RED BLOOD CELL COUNT(AUTO) 3.31 MIL/uL (4.20-6.10); RED CELL DISTRIBUTION WIDTH 15.3 % (11.6-13.7); WHITE BLOOD COUNT (AUTO) 7.6 K/uL (4.8-10.8)
[2022-06-16] MEDS ORDERED: PIPE1SOL IV (10:01)
--- NOTE | 2022-06-16 10:20 | NUR ---
WOUND CARE NOTE: PT. ADMITTED WITH MOISTURE ASSOCIATED SKIN DAMAGE,BILATERAL BUTTOCKS SKIN MOIST BLANCHABLE REDNESS, SUPERFICIAL EROSIONS WITH MASSIEL WOUND PEELING SKIN, PT. WITH LOW JONO SCALE AT HIGH RISK, CONTINUE TO FOLLOW PRESSURE INJURY PREVENTION INTERVENTIONS. -MASSIEL-CARE Q2H -APPLY Z-GUARD TO BUTTOCKS BID AND PRN IF SOILING -POSITIONING: TURN AND REPOSITION PATIENT Q 2H OR SOONER USE PILLOWS TO KEEP BONY PROMINENCES FROM DIRECT CONTACT WITH SURFACES USE REPOSITIONING WEDGES TO PROVIDE 30-DEGREE ANGLE FOR SIDE LYING POSITIONS OFFLOADING OR FOAM DRESSING TO ALL TUBING TO PREVENT MEDICAL DEVICES RELATED PRESSURE INJURY -RE-EVALUATING AND MANAGING INCONTINENCE MONITOR SKIN CONDITION DURING POSITION CHANGE DO NOT MASSAGE REDNESS, BONY PROMINENCES FREQUENT MASSIEL-CARE AND PROVIDE BARRIER CREAMS PRN IF SOILING MOISTURE CONTROL BY OFFER BED WINN/URINAL /ABSORBENT PAD TO WICK AND HOLD MOISTURE KEEP SKIN DRY AND PROTECT FROM FRICTION -MANAGE FRICTION/SHEAR/MOBILITY KEEP HOB AT THE LOWEST LEVEL OF ELEVATION NO MORE THAN 30 DEGREE UNLESS OTHERWISE CONTRAINDICATED USE LIFT SHEET OR TRANSFER DEVICE TO MOVE PATIENT AND PREVENT LATERAL SHEER. PROTECT HEELS, ELBOWS BONY PROMINENCES WITH SKIN BERRIES OR FOAM DRESSING IF EXPOSED TO FRICTION OFFLOAD BILATERAL HEELS BY PLACING PILLOWS UNDER CALVES AT ALL TIMES, UNLESS OTHERWISE CONTRAINDICATED -PRESSURE REDISTRIBUTION SURFACE THERAPY LITA ISOFLEX MATTRESS -NUTRITION: PLEASE FOLLOW RD RECOMMENDATIONS AND OFFER NUTRITION SUPPLEMENTS IF ORDERED. PLEASE CONTACT WOUND CARE NURSE FOR ANY QUESTION AND CHANGE OF WOUND CONDITION.
[2022-06-16] MEDS ORDERED: VANC1FRO IV (11:12)
[2022-06-16 12:00] VITALS: BP 157/86
--- NOTE | 2022-06-16 15:14 | NUR ---
DC PLANNING: PATIENT HAS A DC ORDER TO RETURN TO [facility] . FAXED ALL PAPERWORK CAN GO TO ROOM 26A # TO GIVE REPORT [phone]. ARRANGED TRANSPORT WITH [facility] POWER TRANSFORMER ASSEMBLER TIME 7PM NOTIFIED SILVANO CHARGE NURSE. CM TO FOLLOW
[2022-06-16 16:00] VITALS: BP 126/73
--- NOTE | 2022-06-16 18:17 | NUR ---
Gave report to DENISE Leavitt, [facility].
--- NOTE | 2022-06-16 20:04 | NUR ---
Spoke with Liliana who says she did not get the medication reconciliation and packet of paperwork sent with patient to [facility] and also does not know who Dagmar is. Questions about both of these items not available per Liliana, mill supervisor.
[2022-06-16] MEDS ORDERED: VANCOMYCIN HCL 1.25 GM in DEXTROSE 5% 250 ML IV SCH (21:00)
== END 2022-06-16 19:30 | DRG 871 ==
LOC: MED 21:56 → MTU 06-13 02:41
DX: A41.9 Sepsis, unspecified organism (principal); G93.41 Metabolic encephalopathy; J69.0 Pneumonitis due to inhalation of food and vomit; J96.11 Chronic respiratory failure with hypoxia; I69.351 Hemiplegia and hemiparesis following cerebral infarction affecting right dominant side; Z99.11 Dependence on respirator [ventilator] status; N30.00 Acute cystitis without hematuria; K92.0 Hematemesis; R65.20 Severe sepsis without septic shock; I10 Essential (primary) hypertension; E11.9 Type 2 diabetes mellitus without complications; D64.9 Anemia, unspecified; K40.90 Unilateral inguinal hernia, without obstruction or gangrene, not specified as recurrent; Z66 Do not resuscitate; Z20.822 Contact with and (suspected) exposure to COVID-19; Z93.1 Gastrostomy status; Z79.82 Long term (current) use of aspirin; Z79.899 Other long term (current) drug therapy; Z79.4 Long term (current) use of insulin; Z93.0 Tracheostomy status
CPT/HCPCS: 36415; 71045; 80048; 80053; 80305; 81001; 82140; 82150; 83036; 83605; 83690; 83735; 83880; 84100; 84439; 84443; 84484; 85025; 85610; 85730; 87040; 87070; 87081; 87086; 87186; 87205; 89220; 96361; 96365; 99291; C9113; J0696; J2250; J2765; J3010; J3370; J3475; J7060; Q0092

== ENCOUNTER 2022-12-15 11:00 | Emergency (ER) | payer OTHER, MEDICAID ==
[~2022-12-15] VITALS: Ht 182.9 cm; Wt 90.7 kg
[~2022-12-15 11:00] MED LIST changes: -BISA-213 RC; -FAMO-90 GT; -FERR325E14 GT; -INSU100S10 SC; -MAGN400S60 GT; +METF-346 PO; +MULT-1328 PO; -OMEP20EC11 GT; +PIPE1SOL IV; +VANC1FRO IV; -VANC1PLA7 IV; +VITA-16 GT; -ZOS3.375PM IV
--- NOTE | 2022-12-15 11:04 | NUR ---
SYL ADLER BIBA TO ER BED 01
[2022-12-15 11:10] VITALS: BP 128/69; PULSE 98; RESP 24; TEMP 98.1; O2SAT 99
--- NOTE | 2022-12-15 11:10 | NUR ---
RECEIVED PT FROM EMS, BROUGHT IN VIA GURNEY FROM [facility] FOR URINARY RETENTION, AND FAILURE TO INSERT GUALLPA CATHETER. PT IN STABLE CONDITION, NO VISIBLE DISTRESS NOTED.
--- NOTE | 2022-12-15 11:20 | NUR ---
DR. ARMSTRONG IN TO SEE PT. NEW ORDER FOR UA VIA STRAIGHT CATH.
[2022-12-15] MEDS ORDERED: NACL 0.9% 250 ML IV ONE (13:55)
--- NOTE | 2022-12-15 16:51 | NUR ---
UA SAMPLE COLECTED AND SENT TO THE LAB. REPOSITIONED PT. CALL LIGHT WITH IN REACH OF PT. HUMIDIFIED 02 INFUSING VIA TRACH. RT AT BS TO EVALUATE PT.
[2022-12-15 17:17] LABS: BILIRUBIN,URINE NEGATIVE (NEGATIVE); BLOOD, URINE 3+ (NEGATIVE); COLOR,URINE YELLOW (YELLOW); LEUKOCYTE ESTERASE ,URINE 3+ (NEGATIVE); NITRITE, URINE NEGATIVE (NEGATIVE); UGLUCOSE NEGATIVE (NEGATIVE)
[2022-12-15 17:20] LABS: APPEARANCE,URINE CLOUDY (CLEAR)
[2022-12-15 17:31] LABS: RBC,URINE 11-20 (MOD) /HPF (0-5)
[2022-12-15] MEDS ORDERED: CIPR500T4 PO (17:46)
--- NOTE | 2022-12-15 18:18 | NUR ---
INLINE SUCTIONING PERFORMED. PT TO RETURN BACK TO SNF. AWAITING AMBULANCE TRANSPORT. PT STABLE.
[2022-12-15 18:23] VITALS: BP 133/79; PULSE 98; RESP 20; TEMP 98; O2SAT 96
--- NOTE | 2022-12-15 18:23 | NUR ---
[facility] AMBULANCE TRANSPORT ARRIVED. REPORT PROVIDED TO EMT CHANDA. PT TRANSPORTED OUT OF THE UNIT BY LARRY ESCORTED BY [facility] EMT. DISCHARGE PAPERWORK PROVIDED TO EMT. PT LEFT IN STABLE CONDITION. WITH O2 4L VIA TRACH ON GOING. PT LEFT IN STABLE CONDITON. RX FOR CIPROFLOXIN PROVIDED. REPORT TO SNF WAS PROVIDED BY CHARGE NURSE NAGA WALKER.
[2022-12-17] MEDS ORDERED: AMOX1TAB8 PO (16:13)
== END 2022-12-15 18:23 | disposition home or self-care (01) ==
LOC: MED 11:00
DX: N39.0 Urinary tract infection, site not specified (principal); E11.22 Type 2 diabetes mellitus with diabetic chronic kidney disease; I12.9 Hypertensive chronic kidney disease with stage 1 through stage 4 chronic kidney disease, or unspecified chronic kidney disease; N18.9 Chronic kidney disease, unspecified; D64.9 Anemia, unspecified; Z86.73 Personal history of transient ischemic attack (TIA), and cerebral infarction without residual deficits; Z79.84 Long term (current) use of oral hypoglycemic drugs; Z79.899 Other long term (current) drug therapy
CPT/HCPCS: 81001; 87086; 99285; J7030; 96360

== ENCOUNTER 2023-09-29 19:07 | Inpatient (IN) | payer OTHER, MEDICAID ==
[~2023-09-29] VITALS: Ht 175.3 cm; Wt 94.3 kg
[~2023-09-29 19:07] MED LIST changes: +AMOX1TAB8 PO; +CIPR500T4 PO
[2023-09-29] MEDS: PIPERACILLIN/TAZOBACTAM 3.375 GM in DEXT 5% MINI-BAG PLUS 50 ML IV ONE (19:20)
[2023-09-29] MEDS ORDERED: NACL 0.9% 1,000 ML IV SCH (19:20)
[2023-09-29 19:34] VITALS: BP 117/72; PULSE 107; RESP 20; TEMP 99.7; O2SAT 99
[2023-09-29 19:53] LABS: BASOPHILS % (AUTO) 0.1 % (0.0-2.0); EOSINOPHILS # (AUTO) 0.4 K/uL (0-0.4); EOSINOPHILS % (AUTO) 2.5 % (0.0-4.0); HEMATOCRIT 30.3 % (36-52); HEMOGLOBIN 9.7 g/dL (12.0-18.0); LYMPHOCYTES # (AUTO) 1.2 K/uL (2.0-11.5); MEAN CORPUSCULAR HEMOGLOBIN 26 pg (27-31); MEAN CORPUSCULAR HGB CONC 32 g/dL (33-37); MEAN CORPUSCULAR VOLUME 81.3 fL (80-94); MONOCYTES # (AUTO) 1.7 K/uL (0.8-1.0); MONOCYTES % (AUTO) 10.6 % (1.7-9.3); NEUTROPHILS # (AUTO) 12.5 K/uL (1.8-7.7); NEUTROPHILS % (AUTO) 79.2 % (42.2-75.2); PLATELET COUNT (AUTO) 322 K/uL (140-450); RED BLOOD CELL COUNT(AUTO) 3.73 MIL/uL (4.20-6.10); RED CELL DISTRIBUTION WIDTH 15.8 % (11.6-13.7); WHITE BLOOD COUNT (AUTO) 15.8 K/uL (4.8-10.8)
[2023-09-29 20:07] LABS: CALCIUM 9.4 mg/dL (8.5-10.1); CARBON DIOXIDE 33.7 mmol/L (21-32); CHLORIDE 91 mmol/L (98-107); CREATININE 1.1 mg/dL (0.6-1.3); GLUCOSE 191 mg/dL (74-106); LYMPHOCYTES % (AUTO) 7.6 % (20.5-51.1); POTASSIUM 4.7 mmol/L (3.5-5.1); SODIUM SERUM 131 mmol/L (136-145); UREA NITROGEN, BLOOD 23 mg/dL (7-18)
[2023-09-29 20:10] LABS: INR 0.9 (0.8-1.2); PARTIAL THROMBOPLASTIN TIME 27.8 secs (22-35.6); PROTHROMBIN TIME 9.4 secs (10.8-13.4)
[2023-09-29 20:14] LABS: ALANINE AMINOTRANSFERASE 36 U/L (12-78); ALBUMIN 2.6 g/dL (3.4-5.0); ALKALINE PHOSPHATASE 119 U/L (50-136); ASPARTATE AMINOTRANSFERASE 18 U/L (15-37); BILIRUBIN,DIRECT 0.1 mg/dL (0.0-0.3); TOTAL BILIRUBIN 0.2 mg/dL (0.0-1.0); TOTAL PROTEIN, SERUM 7.5 g/dL (6.4-8.2)
[2023-09-29 20:18] LABS: LACTIC ACID 2.3 mmol/L (0.4-2.0)
[2023-09-29] MEDS ORDERED: PIPERACILLIN/TAZOBACTAM 3.375 GM VIAL IV ONE (20:46)
[2023-09-29] MEDS: NACL 0.9% 1,000 ML IV ONE (20:50)
[2023-09-29] MEDS ORDERED: ZOLPIDEM 5 MG TAB PO PRN (23:20)
[2023-09-29] MEDS ORDERED: POTASSIUM CHLORIDE 10 MEQ TABER PO PRN (23:20)
[2023-09-29] MEDS ORDERED: ALBUTEROL SULFATE/IPRATROPIU 3 ML SOL IH PRN (23:20)
[2023-09-29] MEDS ORDERED: guaiFENesin DM 200/20 MG-10 ML 10 ML UDC PO PRN (23:20)
[2023-09-29] MEDS ORDERED: ONDANSETRON 4 MG/2 ML VIAL IM/IVP PRN (23:20)
[2023-09-29] MEDS ORDERED: DOCUSATE SODIUM 100 MG GELCAP PO PRN (23:20)
[2023-09-29] MEDS ORDERED: ACETAMINOPHEN 325 MG TAB PO PRN (23:20)
[2023-09-30] VITALS (13 sets, daily range): BP systolic 127–141; BP diastolic 72–87; PULSE 78–130; RESP 17–25; TEMP 96.3–97.7; O2SAT 96–100
[2023-09-30] MEDS: NACL 0.9% 1,000 ML IV SCH (00:04)
[2023-09-30 00:17] LABS: FLU A ANTIGEN negative (NEGATIVE); FLU B ANTIGEN negative (NEGATIVE)
[2023-09-30] MEDS ORDERED: PIPERACILLIN/TAZOBACTAM 3.375 GM VIAL IV ONE (02:52)
[2023-09-30] MEDS: PIPERACILLIN/TAZOBACTAM 3.375 GM in DEXTROSE 5% 50 ML IV SCH (04:38)
[2023-09-30 05:21] LABS: BASOPHILS % (AUTO) 0.2 % (0.0-2.0); EOSINOPHILS # (AUTO) 0.4 K/uL (0-0.4); EOSINOPHILS % (AUTO) 3.4 % (0.0-4.0); HEMATOCRIT 27.6 % (36-52); HEMOGLOBIN 8.9 g/dL (12.0-18.0); LYMPHOCYTES # (AUTO) 1.5 K/uL (2.0-11.5); LYMPHOCYTES % (AUTO) 12.5 % (20.5-51.1); MEAN CORPUSCULAR HEMOGLOBIN 26 pg (27-31); MEAN CORPUSCULAR HGB CONC 32 g/dL (33-37); MEAN CORPUSCULAR VOLUME 80.9 fL (80-94); MONOCYTES # (AUTO) 1.5 K/uL (0.8-1.0); MONOCYTES % (AUTO) 12.8 % (1.7-9.3); NEUTROPHILS # (AUTO) 8.4 K/uL (1.8-7.7); NEUTROPHILS % (AUTO) 71.1 % (42.2-75.2); PLATELET COUNT (AUTO) 289 K/uL (140-450); RED BLOOD CELL COUNT(AUTO) 3.41 MIL/uL (4.20-6.10); WHITE BLOOD COUNT (AUTO) 11.8 K/uL (4.8-10.8)
[2023-09-30 06:12] LABS: ALANINE AMINOTRANSFERASE 30 U/L (12-78); ALBUMIN 2.4 g/dL (3.4-5.0); ALKALINE PHOSPHATASE 93 U/L (50-136); ANION GAP 7.6 (8-16); ASPARTATE AMINOTRANSFERASE 20 U/L (15-37); CALCIUM 9.1 mg/dL (8.5-10.1); CARBON DIOXIDE 34.5 mmol/L (21-32); CHLORIDE 97 mmol/L (98-107); CREATININE 0.8 mg/dL (0.6-1.3); GLUCOSE 195 mg/dL (74-106); POTASSIUM 4.1 mmol/L (3.5-5.1); SODIUM SERUM 135 mmol/L (136-145); TOTAL BILIRUBIN 0.2 mg/dL (0.0-1.0); TOTAL PROTEIN, SERUM 6.9 g/dL (6.4-8.2); UREA NITROGEN, BLOOD 19 mg/dL (7-18)
[2023-09-30] MEDS: ALBUTEROL SULFATE/IPRATROPIU 3 ML SOL IH SCH (07:00)
[2023-09-30 07:12] LABS: BLOOD GAS PH 7.359 (7.35-7.45)
[2023-09-30 07:13] LABS: BLOOD GAS BASE EXCESS 6.8 mmol/L (-2.0-2.0); BLOOD GAS HCO3 33.6 mmol/L (22-26); BLOOD GAS PO2 150.2 mmHg (75-100)
[2023-09-30] MEDS: PANTOPRAZOLE 40 MG INJ VIAL IVP SCH (08:37)
[2023-09-30] MEDS ORDERED: PANTOPRAZOLE 40 MG TABEC PO SCH (09:00)
[2023-09-30] MEDS: ATORVASTATIN 80 MG TAB GT SCH (21:20)
[2023-09-30] MEDS: DOCUSATE 100 MG/10 ML UDC GT SCH (21:23)
[2023-09-30] MEDS: METOPROLOL 25 MG TAB PO SCH (21:23)
[2023-10-01] VITALS (10 sets, daily range): BP systolic 129–160; BP diastolic 54–90; PULSE 63–87; RESP 18–20; TEMP 35.9; O2SAT 94–100
[2023-10-01 05:18] LABS: BASOPHILS % (AUTO) 0.4 % (0.0-2.0); EOSINOPHILS # (AUTO) 0.7 K/uL (0-0.4); EOSINOPHILS % (AUTO) 7.8 % (0.0-4.0); HEMATOCRIT 27.7 % (36-52); HEMOGLOBIN 9.2 g/dL (12.0-18.0); LYMPHOCYTES # (AUTO) 1.8 K/uL (2.0-11.5); LYMPHOCYTES % (AUTO) 19.8 % (20.5-51.1); MEAN CORPUSCULAR HEMOGLOBIN 27 pg (27-31); MEAN CORPUSCULAR HGB CONC 33 g/dL (33-37); MEAN CORPUSCULAR VOLUME 81.7 fL (80-94); MONOCYTES % (AUTO) 11.7 % (1.7-9.3); NEUTROPHILS # (AUTO) 5.4 K/uL (1.8-7.7); NEUTROPHILS % (AUTO) 60.3 % (42.2-75.2); PLATELET COUNT (AUTO) 306 K/uL (140-450); RED CELL DISTRIBUTION WIDTH 15.9 % (11.6-13.7)
[2023-10-01 05:49] LABS: ANION GAP 7.5 (8-16); CARBON DIOXIDE 35.6 mmol/L (21-32); CHLORIDE 100 mmol/L (98-107); CREATININE 0.9 mg/dL (0.6-1.3); GLUCOSE 195 mg/dL (74-106); POTASSIUM 4.1 mmol/L (3.5-5.1); SODIUM SERUM 139 mmol/L (136-145); UREA NITROGEN, BLOOD 13 mg/dL (7-18)
[2023-10-01 05:50] LABS: ALANINE AMINOTRANSFERASE 37 U/L (12-78); ALKALINE PHOSPHATASE 87 U/L (50-136); ASPARTATE AMINOTRANSFERASE 24 U/L (15-37); TOTAL BILIRUBIN 0.2 mg/dL (0.0-1.0)
[2023-10-01 05:51] LABS: ALBUMIN 2.4 g/dL (3.4-5.0); TOTAL PROTEIN, SERUM 6.8 g/dL (6.4-8.2)
[2023-10-01 06:24] LABS: CALCIUM 9.3 mg/dL (8.5-10.1)
[2023-10-01] MEDS: ASPIRIN 81 MG TAB.CHEW GT SCH (08:35)
[2023-10-01] MEDS: LACTOBACILLUS RHAMNOSUS GG 1 EACH CAP GT SCH (08:35)
[2023-10-01] MEDS: CHOLECALCIFEROL 1,000 IU TAB GT SCH (08:35)
[2023-10-01] MEDS: ASCORBIC ACID 500 MG TAB GT SCH (08:36)
[2023-10-01] MEDS: TAMSULOSIN 0.4 MG CAP GT SCH (08:36)
[2023-10-01] MEDS: lisinopriL 20 MG TAB GT SCH (08:36)
[2023-10-01] MEDS: MULTIVITAMIN/MINERALS 15 ML UDBTL GT SCH (08:38)
[2023-10-01] MEDS ORDERED: LACTOBACILLUS ACIDOPHILUS GT/PO SCH (09:00)
[2023-10-01] MEDS ORDERED: CHOLECALCIFEROL GT/PO SCH (09:00)
[2023-10-01] MEDS ORDERED: NON-FORMULARY ITEM (Multivitamin with Minerals (Multivitamins with Minerals) 1 TAB) PO SCH (09:00)
[2023-10-01] MEDS ORDERED: Z-GUARD PASTE TP PRN (12:25)
[2023-10-01] MEDS ORDERED: FOAM DRESSING TP PRN (12:25)
[2023-10-01] MEDS: Z-GUARD PASTE TP SCH (13:21)
[2023-10-01] MEDS: FOAM DRESSING TP SCH (13:21)
[2023-10-01] MEDS: HYDROcodone/APAP 7.5/325 MG 1 TAB PO PRN (19:56)
[2023-10-02] VITALS (11 sets, daily range): BP systolic 120–157; BP diastolic 73–84; PULSE 79–110; RESP 18–22; TEMP 97.1–98.4; O2SAT 94–100
[2023-10-02 05:21] LABS: BASOPHILS % (AUTO) 0.6 % (0.0-2.0); EOSINOPHILS % (AUTO) 12.3 % (0.0-4.0); HEMATOCRIT 28.9 % (36-52); HEMOGLOBIN 9.3 g/dL (12.0-18.0); LYMPHOCYTES # (AUTO) 1.8 K/uL (2.0-11.5); LYMPHOCYTES % (AUTO) 21.6 % (20.5-51.1); MEAN CORPUSCULAR HEMOGLOBIN 27 pg (27-31); MEAN CORPUSCULAR HGB CONC 32 g/dL (33-37); MEAN CORPUSCULAR VOLUME 82.7 fL (80-94); MONOCYTES # (AUTO) 0.8 K/uL (0.8-1.0); MONOCYTES % (AUTO) 10.2 % (1.7-9.3); NEUTROPHILS # (AUTO) 4.5 K/uL (1.8-7.7); NEUTROPHILS % (AUTO) 55.3 % (42.2-75.2); PLATELET COUNT (AUTO) 336 K/uL (140-450); RED CELL DISTRIBUTION WIDTH 16.2 % (11.6-13.7); WHITE BLOOD COUNT (AUTO) 8.1 K/uL (4.8-10.8)
[2023-10-02 05:58] LABS: ALANINE AMINOTRANSFERASE 48 U/L (12-78); ALBUMIN 2.5 g/dL (3.4-5.0); ALKALINE PHOSPHATASE 86 U/L (50-136); ANION GAP 9.4 (8-16); ASPARTATE AMINOTRANSFERASE 35 U/L (15-37); CALCIUM 9.6 mg/dL (8.5-10.1); CARBON DIOXIDE 33.2 mmol/L (21-32); CHLORIDE 101 mmol/L (98-107); CREATININE 0.9 mg/dL (0.6-1.3); GLUCOSE 159 mg/dL (74-106); POTASSIUM 3.6 mmol/L (3.5-5.1); SODIUM SERUM 140 mmol/L (136-145); TOTAL BILIRUBIN 0.3 mg/dL (0.0-1.0); TOTAL PROTEIN, SERUM 6.8 g/dL (6.4-8.2); UREA NITROGEN, BLOOD 10 mg/dL (7-18)
[2023-10-03 04:00] VITALS: BP 132/59; PULSE 67; RESP 18; TEMP 97; O2SAT 100
[2023-10-03 06:25] LABS: BASOPHILS % (AUTO) 0.4 % (0.0-2.0); EOSINOPHILS # (AUTO) 0.6 K/uL (0-0.4); EOSINOPHILS % (AUTO) 8.9 % (0.0-4.0); HEMATOCRIT 27.1 % (36-52); HEMOGLOBIN 8.7 g/dL (12.0-18.0); LYMPHOCYTES # (AUTO) 1.5 K/uL (2.0-11.5); LYMPHOCYTES % (AUTO) 23.2 % (20.5-51.1); MEAN CORPUSCULAR HEMOGLOBIN 26 pg (27-31); MEAN CORPUSCULAR HGB CONC 32 g/dL (33-37); MONOCYTES # (AUTO) 0.7 K/uL (0.8-1.0); MONOCYTES % (AUTO) 10.3 % (1.7-9.3); NEUTROPHILS # (AUTO) 3.7 K/uL (1.8-7.7); NEUTROPHILS % (AUTO) 57.2 % (42.2-75.2); PLATELET COUNT (AUTO) 322 K/uL (140-450); RED CELL DISTRIBUTION WIDTH 15.8 % (11.6-13.7); WHITE BLOOD COUNT (AUTO) 6.4 K/uL (4.8-10.8)
[2023-10-03 06:58] LABS: ALANINE AMINOTRANSFERASE 58 U/L (12-78); ALBUMIN 2.4 g/dL (3.4-5.0); ALKALINE PHOSPHATASE 80 U/L (50-136); ANION GAP 9.8 (8-16); ASPARTATE AMINOTRANSFERASE 40 U/L (15-37); CALCIUM 8.9 mg/dL (8.5-10.1); CARBON DIOXIDE 31.6 mmol/L (21-32); CHLORIDE 102 mmol/L (98-107); CREATININE 0.8 mg/dL (0.6-1.3); GLUCOSE 149 mg/dL (74-106); POTASSIUM 3.4 mmol/L (3.5-5.1); SODIUM SERUM 140 mmol/L (136-145); TOTAL BILIRUBIN 0.3 mg/dL (0.0-1.0); TOTAL PROTEIN, SERUM 6.5 g/dL (6.4-8.2); UREA NITROGEN, BLOOD 8 mg/dL (7-18)
[2023-10-03 07:43] VITALS: PULSE 77; RESP 20; O2SAT 95
[2023-10-03 08:00] VITALS: PULSE 75; PULSE 87; RESP 18; TEMP 97.8; O2SAT 100; O2SAT 97
[2023-10-03] MEDS ORDERED: AMPI1PDS18 IV (08:26)
[2023-10-03] MEDS ORDERED: POTASSIUM CHLORIDE 20% 40 MEQ/15 ML UDC GT SCH (09:00)
[2023-10-03 12:00] VITALS: BP 134/84; PULSE 87; RESP 19; TEMP 97.1; O2SAT 100
[2023-10-03] MEDS: AMPICILLIN/SULBACTAM 1.5 GM in NACL 0.9% 50 ML IV SCH (12:00)
[2023-10-03 14:07] VITALS: PULSE 82; RESP 20; O2SAT 97
[2023-10-03 17:27] VITALS: BP 134/84; PULSE 82; RESP 20; TEMP 97.1
== END 2023-10-03 17:50 | DRG 871 ==
LOC: MED 19:07 → MTU 23:23 → MIC 09-30 02:55 → MTU 09-30 16:32
PROVIDERS: ADMIT Student in an Organized Health Care Education/Training Program; ATTEND Student in an Organized Health Care Education/Training Program
DX: A41.9 Sepsis, unspecified organism (principal); J18.9 Pneumonia, unspecified organism; J96.21 Acute and chronic respiratory failure with hypoxia; N39.0 Urinary tract infection, site not specified; Z20.822 Contact with and (suspected) exposure to COVID-19; Z86.73 Personal history of transient ischemic attack (TIA), and cerebral infarction without residual deficits; Z79.899 Other long term (current) drug therapy
CPT/HCPCS: 36415; 36600; 71045; 80048; 80053; 80076; 82803; 83605; 83880; 84484; 85025; 85610; 85730; 87040; 87070; 87081; 87186; 87205; 93005; 94640; 96365; 99291; C9113; J0295; J2543; J7060